=== PATIENT | male | born 1940 | race Caucasian/White ===

== ENCOUNTER 2017-08-29 15:33 | Emergency (ER) | payer MEDICARE, BC, SELFPAY ==
[2017-08-29 15:33] VITALS: BP 122/63; PULSE 87; RESP 18; O2SAT 95; BMI 27.2
--- NOTE | 2017-08-29 17:21 | XR_ITS ---
XR pelvis 1-2V Ordering Physician: Nannette Verdugo MD Patient Age: 77 years: Male HISTORY: ITS.REASON: FALL TECHNIQUE: AP portable supine pelvis radiograph single view COMPARISON :None FINDINGS Osseous pelvis appears intact with no fracture. Bone well mineralized. AP view hips reveals no fracture. Perhaps trace narrowing superior hip joint spaces which may reflect early degenerative changes here. Unimpressive.. Sacrum and SI joints unremarkable. Degenerative disc space narrowing to the right L4/5 with marginal osteophytes to the right L4/5. To lesser degree L5/S1.. Mild dystrophic calcification along the lateral margin of right iliac bone not of current significance.. IMPRESSION: No fracture or acute findings at the pelvis. Osseous pelvis intact. Trace narrowing superior joint bases may reflect very early degenerative changes hips bilateral. Degenerative disc changes lower lumbar spine, most notable to the right at L4/5 on this AP view
--- NOTE | 2017-08-29 18:37 | HMH.EDBACK ---
ED Disposition Clinical Impression: Contusion of pelvis Disposition: Home, Self-Care Condition on Discharge: Good Instructions: DI for Low Back Pain Additional Instructions: Tylenol as needed for pain; see family doctor for follow up as needed. Referrals: Cedric Mcgovern MD [Primary Care Provider] - - Critical Care Critical Care Time: No Attestation: On 08/29/17, the high probability of a clinically significant, sudden or life threatening deterioration of the following system(s) required my full and direct attention, intervention and personal management. The time I documented below is in addition to time spent performing reported procedures but includes the following listed in this critical care notation. Medical Decision Making Vital Signs: 08/29/17 15:33 Temperature Source Oral Pulse Rate [Apical] 87 Respiratory Rate 18 Blood Pressure [Right Arm] 122/63 Blood Pressure Mean [Right Arm] 82 Blood Pressure Source [Right Arm] Automatic Cuff Blood Pressure Position [Right Arm] Sitting 02 Sat by Pulse Oximetry 95 Oxygen Delivery Method Room Air - Radiology Data #1 Image(s): Pelvis Image Reviewed: Yes I reviewed the patient's radiology results, Yes I have reviewed radiologist's interpretation Preliminary Findings: Normal/NAD, No Fracture Seen - [place] Inquiry Pt receiving controlled substance: No H History - *Social History Alcohol Intake: never - Psychiatric History Expresses thoughts of harming self/others: None Suicide Plan Description: No Plan ROS Obtained: Yes All systems reviewed & no additional complaints Physical Exam - General General appearance: alert, in no apparent distress - Head Head exam: atraumatic, normocephalic, normal inspection - Eye Eye exam: Present: normal appearance, PERRL, EOMI - ENT ENT exam: Present: normal exam, normal oropharynx, mucous membranes moist, TM's normal bilaterally, normal external ear exam - Neck Neck exam: Present: normal inspection, full ROM, trachea midline. Absent: meningismus, lymphadenopathy - Chest Chest inspection: Present: normal inspection, symmetric chest wall rise. Absent: tenderness - Respiratory Respiratory exam: Present: normal lung sounds bilaterally, other (Negative for crepitus deformities or step-offs. Negative for subcutaneous air.). Absent: respiratory distress - Cardiovascular Cardiovascular exam: Present: regular rate, normal rhythm. Absent: JVD - Abdominal Exam Abdominal exam: Present: soft, normal bowel sounds. Absent: distention, tenderness, guarding - Extremities Exam Extremities exam: Present: normal inspection, full ROM, normal capillary refill, other (Left posterior pelvis slightly tender diffusely with no crepitus deformity or step-offs. Able to AP and lateral palpation. Full range of motion of all joints and he is neurovascularly intact.). Absent: tenderness, pedal edema, joint swelling, calf tenderness - Back Exam Back exam: Present: normal inspection, full ROM, other (Posterior pelvis tenderness,, no deformity). Absent: paraspinal tenderness, vertebral tenderness - Neurological Exam Neurological exam: Present: alert, oriented X3, reflexes normal. Absent: motor sensory deficit - Skin Skin exam: Present: warm, dry, intact, normal color Back Pain HPI - General Chief Complaint: Back Pain/Injury Stated Complaint: LOWER BACK PAIN Mode of Arrival: Ambulatory Limitations: No Limitations Description of Symptoms (Recalled from ER Triage Doc. by RN): PT C/O LOWER LEFT BACK PAIN SAID HE FELL GETTING INTO BED. - History of Present Illness HPI Narrative: Patient apparently fell several days ago, per EMS report from [facility]. The personal intermediate had x-rays were done yesterday. Ever, we are unable to find results i or any documentation of these having been done here. He is complaining of left-sided back pain no weakness numbness or tingling. Uses depends. No other complaint
--- NOTE | 2017-08-29 18:40 | ED_ITS ---
ED Disposition Clinical Impression: Contusion of pelvis Disposition: Home, Self-Care Condition on Discharge: Good Instructions: DI for Low Back Pain Additional Instructions: Tylenol as needed for pain; see family doctor for follow up as needed. Referrals: Cedric Mcgovern MD [Primary Care Provider] - - Critical Care Critical Care Time: No Attestation: On 08/29/17, the high probability of a clinically significant, sudden or life threatening deterioration of the following system(s) required my full and direct attention, intervention and personal management. The time I documented below is in addition to time spent performing reported procedures but includes the following listed in this critical care notation. Medical Decision Making Vital Signs: 08/29/17 15:33 Temperature Source Oral Pulse Rate [Apical] 87 Respiratory Rate 18 Blood Pressure [Right Arm] 122/63 Blood Pressure Mean [Right Arm] 82 Blood Pressure Source [Right Arm] Automatic Cuff Blood Pressure Position [Right Arm] Sitting 02 Sat by Pulse Oximetry 95 Oxygen Delivery Method Room Air - Radiology Data #1 Image(s): Pelvis Image Reviewed: Yes I reviewed the patient's radiology results, Yes I have reviewed radiologist's interpretation Preliminary Findings: Normal/NAD, No Fracture Seen - [place] Inquiry Pt receiving controlled substance: No H History - *Social History Alcohol Intake: never - Psychiatric History Expresses thoughts of harming self/others: None Suicide Plan Description: No Plan ROS Obtained: Yes All systems reviewed & no additional complaints Physical Exam - General General appearance: alert, in no apparent distress - Head Head exam: atraumatic, normocephalic, normal inspection - Eye Eye exam: Present: normal appearance, PERRL, EOMI - ENT ENT exam: Present: normal exam, normal oropharynx, mucous membranes moist, TM's normal bilaterally, normal external ear exam - Neck Neck exam: Present: normal inspection, full ROM, trachea midline. Absent: meningismus, lymphadenopathy - Chest Chest inspection: Present: normal inspection, symmetric chest wall rise. Absent : tenderness - Respiratory Respiratory exam: Present: normal lung sounds bilaterally, other (Negative for crepitus deformities or step-offs. Negative for subcutaneous air.). Absent: respiratory distress - Cardiovascular Cardiovascular exam: Present: regular rate, normal rhythm. Absent: JVD - Abdominal Exam Abdominal exam: Present: soft, normal bowel sounds. Absent: distention, tenderness, guarding - Extremities Exam Extremities exam: Present: normal inspection, full ROM, normal capillary refill , other (Left posterior pelvis slightly tender diffusely with no crepitus deformity or step-offs. Able to AP and lateral palpation. Full range of motion of all joints and he is neurovascularly intact.). Absent: tenderness, pedal edema, joint swelling, calf tenderness - Back Exam Back exam: Present: normal inspection, full ROM, other (Posterior pelvis tenderness,, no deformity). Absent: paraspinal tenderness, vertebral tenderness - Neurological Exam Neurological exam: Present: alert, oriented X3, reflexes normal. Absent: motor sensory deficit - Skin Skin exam: Present: warm, dry, intact, normal color Back Pain HPI - General Chief Complaint: Back Pain/Injury Stated Complaint: LOWER BACK PAIN Mode of A
== END 2017-08-29 19:00 | disposition home or self-care (01) ==
PROVIDERS: Emergency Provider Emergency Medicine; Family Provider Emergency Medicine; PCP Emergency Medicine
DX: S30.0XXA Contusion of lower back and pelvis, initial encounter (principal); W06.XXXA Fall from bed, initial encounter; Y92.199 Unspecified place in other specified residential institution as the place of occurrence of the external cause
CPT/HCPCS: 72170; 99283

== ENCOUNTER → 2017-10-11 06:51 | Outpatient (CLI) | payer MEDICARE, BC, SELFPAY ==
--- NOTE | 2017-10-11 06:53 | NM_ITS ---
History and Indications: Coronary artery disease status post bypass surgery shortness of breath Procedure: Patient received a 0.4 mg of Lexiscan, resting heart rate was 94 beats per resting blood pressure 122/61, with Lexiscan maximum heart achieved was 108 bpm which is less than 85% of the maximum predicted heart rate and a blood pressure 139/75. With Lexiscan patient complained of mild chest, discomfort. Electrocardiogram: Resting electrocardiogram shows electronically paced rhythm, with Lexiscan less than 1.[address] segment depression noted from the baseline EKG, underlying rhythm was atrial flutter. The EKG portion of the Lexiscan Myoview is nondiagnostic. Cardiac stress and resting SPECT images: Cardiac stress and the rest images were obtained using technetium 99 Myoview and 10.2 mCi at rest and 32.9 mCi at stress, gated SPECT further analysis of segmental wall motion and calculation of the ejection fraction also done. Cardiac stress and rest SPECT images show a mild fixed defect in the inferior wall with normal contractility in the gated SPECT is likely secondary to soft tissue attenuation from the diaphragm, no reversible ischemia seen. Computer derived ejection fraction is 52% with no obvious regional wall motion abnormality, right ventricle is normal size and contractility. Conclusion: 1. The EKG portion of the Lexiscan Myoview is nondiagnostic. 2. No obvious scintigraphic evidence of reversible ischemia seen, either derived ejection fraction is 52% with no obvious regional wall motion abnormality, right ventricle is normal size and contractility.
--- NOTE | 2017-10-11 06:53 | XR_ITS ---
XR chest 2V HISTORY: Shortness of breath ITS.REASON: pacemaker ORDERING PHYSICIAN: Kayden Mancera MD PATIENT AGE: 77 years COMPARISON: 03/02/2017 FINDINGS: There has been a prior CABG with median sternotomy and bipolar pacemaker present. The lungs are clear bilaterally. No evidence of CHF. There are multiple old right-sided rib fractures. Degenerative changes present in the thoracic spine. IMPRESSION: Prior CABG. Cardiac pacemaker present. No change with no acute finding.
--- NOTE | 2017-10-11 06:53 | CA_ITS ---
PROCEDURE: 2-D M-mode and color Doppler study INDICATIONS FOR THE TEST: Chest pain COPD Heart Murmur Tobacco Smoking Palpitations Fatigue Syncope Edema HypertensionXDiabetes Mellitus Rheumatic Fever SOB FARRELL Obesity HyperlipidemiaX Family History HD Additional History CAD,CABG PATIENT INFORMATION HEIGHT: 70 WEIGHT:200 GENDER: Male B/P:110/70 2-D/M-MODE INTERPRETATION: 2-D MEASUREMENTS OBSERVED VALUES IN CMS Right Ventricular Dimension (RVDd) 1.6 Interventricular Septum (Thickness)(IVsd) .9 Left Ventricular Internal Dimensions(LVIDd) 6.0 Left Ventricular Posterior Wall (Thickness)(LVPWd) 1.3 Aortic Root 4.0 Aortic Cusp Separation 2.1 Left Atrial Dimensions (LAD) 3.0 2D 1. Left atrium is qualitatively mildly enlarged, left ventricle is normal size, there is mild concentric left ventricular hypertrophy, visually estimated ejection fraction approximately 45%, there appears to be moderate hypokinesis involving the mid to distal septum and anteroapical wall. 2. The right atrium and right ventricle are normal size and contractility. 3. The aortic valve is minimally thickened and fibrosed. 4. The mitral valve has mild mitral calcification, leaflets are minimally thickened. 5. The tricuspid valve is structurally normal. 6. The pulmonic valve is poorly visualized. 7. No significant pericardial effusion noted. DOPPLER INTERROGATION: Doppler interrogation of the aortic, mitral and tricuspid valvular presence of mild mitral and tricuspid regurgitation, tricuspid and jet velocity insufficient for calculation of the right ventricular systolic pressure, diastolic parameters are inconclusive. CONCLUSION: 1. Mildly enlarged left atrium, normal left ventricular size, mild concentric left ventricular hypertrophy, visually estimated ejection fraction of 45% with segmental wall motion abnormality described above, diastolic parameters are inconclusive. 2. Mild mitral and tricuspid regurgitation 3. No significant pericardial effusion noted.
--- NOTE | 2017-10-11 10:48 | HMH.ITSHM ---
ondansetron atorvastatin doneprezil ranitidine zoloft flomax iltram tegretol
== END ==
PROVIDERS: Family Provider Emergency Medicine; PCP Emergency Medicine; Visit Provider Internal Medicine
DX: I25.10 Atherosclerotic heart disease of native coronary artery without angina pectoris; I25.810 Atherosclerosis of coronary artery bypass graft(s) without angina pectoris; E78.5 Hyperlipidemia, unspecified; I11.9 Hypertensive heart disease without heart failure; Z95.0 Presence of cardiac pacemaker
CPT/HCPCS: 71046; 78452; 93017; 93306; A9502; J2785

== ENCOUNTER → 2017-10-30 10:50 | Outpatient (CLI) | payer MEDICARE, BC, SELFPAY ==
[2017-10-30 13:49] LABS: PHA INR Fingerstick 1.4 (0.9-1.1)
== END ==
PROVIDERS: PCP Emergency Medicine; Visit Provider Internal Medicine
DX: Z79.01 Long term (current) use of anticoagulants (principal); Z51.81 Encounter for therapeutic drug level monitoring; I48.92 Unspecified atrial flutter
CPT/HCPCS: 85610; 99211; G0463

== ENCOUNTER 2017-11-12 08:34 | Outpatient (CLI) | payer MEDICARE, BC, SELFPAY ==
[2017-11-12 09:55] LABS: PHA INR Fingerstick 2.1 (0.9-1.1)
== END 2017-11-12 10:02 | disposition home or self-care (01) ==
PROVIDERS: Family Provider Emergency Medicine; PCP Emergency Medicine; Visit Provider Internal Medicine
DX: Z79.01 Long term (current) use of anticoagulants (principal); Z51.81 Encounter for therapeutic drug level monitoring; I48.92 Unspecified atrial flutter
CPT/HCPCS: 85610; 99211; G0463

== ENCOUNTER → 2017-11-12 11:10 | Outpatient (CLI) | payer MEDICARE, BC, SELFPAY ==
--- NOTE | 2017-11-12 10:23 | CT_ITS ---
CT head/brain wo con HISTORY: Dementia, pain, facial pain ITS.REASON: facial pain ORDERING PHYSICIAN: Trudi Garcia MD PATIENT AGE: 77 years COMPARISON: 02/19/2017 TECHNIQUE: Axial images obtained without contrast. Brain and bone windows reviewed. All CT scans at the facility use one or more dose reduction, viz: automated exposure control; ma/kV adjustment per patient size (including targeted exams where dose is matched to indication; i.e. head); or iterative reconstruction technique. FINDINGS: There is diffuse generalized atrophy with low density changes in the periventricular region consistent with ischemic gliotic change from microvascular disease. Small acute infarction in the left thalamus. Old small lacunar infarction involves the festus slightly towards the left. No midline shift or mass effect. No acute intracranial hemorrhage. There is mild ventriculomegaly but is likely related to the volume loss from the diffuse atrophy. No sinus air-fluid level or mastoid effusion. IMPRESSION: 1. No acute intracranial findings. 2. 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
[2017-11-12 12:14] LABS: Basophils % 0.5 % (0.1-2.0); Eosinophils # 0.2 K/mm3 (0.0-0.4); Eosinophils % 3.4 % (0.1-12.0); Hematocrit 44.1 % (42.0-52.0); Hemoglobin 14.8 g/dL (14.1-18.0); Lymphocytes # 0.9 K/mm3 (0.7-4.5); Lymphocytes % 18.2 K/mm3 (10-50); Mean Corpuscular HGB Conc 33.4 g/dL (31.8-35.4); Mean Corpuscular Hemoglobin 31.7 pg (27.0-31.2); Mean Corpuscular Volume 94.7 fl (80-94); Mean Platelet Volume 7.5 fl (7.4-10.4); Monocytes # 0.4 K/mm3 (0.1-1.0); Monocytes % 6.9 % (1.7-9.3); Neutrophils # 3.7 K/mm3 (1.8-7.8); Platelet Count 144 K/mm3 (142-424); Red Blood Count 4.66 M/mm3 (4.60-6.20); Red Cell Distribution Width 12.9 % (11.5-17.5); White Blood Count 5.2 K/mm3 (4.8-10.8)
[2017-11-12 12:15] LABS: Alanine Aminotransferase 22 U/L (12-78); Albumin Level 3.8 gm/dL (3.4-5.0); Albumin/Globulin Ratio 1.4 (1.1-1.8); Alkaline Phosphatase 132 U/L (46-116); Anion Gap 10.4 mEq/L (5-15); Aspartate Amino Transferase 16 U/L (15-37); Bilirubin,Total 0.3 mg/dL (0.2-1.0); Blood Urea Nitrogen 16 mg/dL (7-18); Calcium 8.6 mg/dL (8.5-10.1); Carbon Dioxide 30 mmol/L (21.0-32.0); Chloride 105 mmol/L (98-107); Creatinine,Serum 0.95 mg/dL (0.70-1.30); Estimated Glomerular Filt Rate 77 ml/min (>60); GFR (African American) 93 ML/MIN (>60); Globulin 2.8 gm/dl (1.3-3.2); Glucose 78 mg/dL (74-106); Potassium 4.4 mmoL/L (3.5-5.1); Sodium 141 mmol/L (136-145); Thyroid Stimulating Hormone 1.78 uIU/ml (0.358-3.740); Total Protein,Serum 6.6 gm/dL (6.4-8.2)
[2017-11-13 14:00] LABS: Folate >20.0 ng/mL (>3.0); Vitamin B12 529 pg/mL (232-1245)
== END ==
PROVIDERS: Family Provider Emergency Medicine; PCP Emergency Medicine; Visit Provider Specialist
DX: R51 Headache (principal); F03.90 Unspecified dementia, unspecified severity, without behavioral disturbance, psychotic disturbance, mood disturbance, and anxiety; Z79.01 Long term (current) use of anticoagulants; Z51.81 Encounter for therapeutic drug level monitoring
CPT/HCPCS: 36415; 70450; 80053; 82607; 82746; 84443; 85025; 85610; 99211; G0463

== ENCOUNTER 2017-11-19 09:21 | Outpatient (CLI) | payer MEDICARE, BC, SELFPAY ==
[2017-11-19 10:36] LABS: PHA INR Fingerstick 2.6 (0.9-1.1)
== END 2017-11-19 14:40 | disposition home or self-care (01) ==
PROVIDERS: PCP Emergency Medicine; Visit Provider Internal Medicine
DX: Z79.01 Long term (current) use of anticoagulants (principal); Z51.81 Encounter for therapeutic drug level monitoring; I48.92 Unspecified atrial flutter
CPT/HCPCS: 85610; 99211; G0463

== ENCOUNTER 2017-12-03 09:06 | Outpatient (CLI) | payer MEDICARE, BC, SELFPAY ==
[2017-12-03 13:10] LABS: PHA INR Fingerstick 2.1 (0.9-1.1)
== END 2017-12-03 13:12 | disposition home or self-care (01) ==
LOC: ACC 09:07
PROVIDERS: PCP Emergency Medicine; Visit Provider Internal Medicine
DX: Z79.01 Long term (current) use of anticoagulants (principal); Z51.81 Encounter for therapeutic drug level monitoring; I48.92 Unspecified atrial flutter
CPT/HCPCS: 85610; 99211; G0463

== ENCOUNTER 2017-12-31 09:39 | Outpatient (CLI) | payer MEDICARE, BC, SELFPAY ==
[2017-12-31 13:10] LABS: PHA INR Fingerstick 1.8 (0.9-1.1)
== END 2017-12-31 14:49 | disposition home or self-care (01) ==
LOC: ACC 09:40
PROVIDERS: PCP Emergency Medicine; Visit Provider Internal Medicine
DX: Z79.01 Long term (current) use of anticoagulants (principal); Z51.81 Encounter for therapeutic drug level monitoring; I48.92 Unspecified atrial flutter
CPT/HCPCS: 85610; 99211; G0463

== ENCOUNTER 2018-01-21 09:26 | Outpatient (CLI) | payer MEDICARE, BC, SELFPAY ==
[2018-01-21 11:50] LABS: PHA INR Fingerstick 2.2 (0.9-1.1)
== END 2018-01-21 12:15 | disposition home or self-care (01) ==
LOC: ACC 09:27
PROVIDERS: Family Provider Emergency Medicine; PCP Emergency Medicine; Visit Provider Internal Medicine
DX: Z79.01 Long term (current) use of anticoagulants (principal); Z51.81 Encounter for therapeutic drug level monitoring; I48.92 Unspecified atrial flutter
CPT/HCPCS: 85610; 99211; G0463

== ENCOUNTER 2018-02-25 09:57 | Outpatient (CLI) | payer MEDICARE, BC, SELFPAY ==
[2018-02-25 15:05] LABS: PHA INR Fingerstick 2.8 (0.9-1.1)
== END 2018-02-25 15:47 | disposition home or self-care (01) ==
LOC: ACC 09:58
PROVIDERS: PCP Emergency Medicine; Visit Provider Internal Medicine
DX: Z79.01 Long term (current) use of anticoagulants (principal); Z51.81 Encounter for therapeutic drug level monitoring; I48.92 Unspecified atrial flutter
CPT/HCPCS: 85610; 99211; G0463

== ENCOUNTER → 2018-04-29 13:25 | Outpatient (REF) | payer MEDICARE, BC, SELFPAY ==
[2018-04-29 13:35] LABS: Microscopic, Urine URINE MICROSCOPIC (MICROSCOPIC)
[2018-04-29 13:55] LABS: Appearance,Urine CLEAR (Clear); Bilirubin,Urine Negative (Negative); Blood, Urine Negative (Negative); Color,Urine YELLOW (Yellow); Glucose,Urine (UA) Negative (Negative); Ketones,Urine Negative (Negative); Leukocyte Esterase,Urine Negative (Negative); Nitrate,Urine Negative (Negative); PH,Urine 6.5 (5.0-8.5); Protein,Urine Negative (Negative); Urobilinogen,Urine 0.2 EU/dl (0.2)
[2018-04-29 14:22] LABS: Basophils % 0.5 % (0.1-2.0); Eosinophils # 0.2 K/mm3 (0.0-0.4); Eosinophils % 2.6 % (0.1-12.0); Hematocrit 43.7 % (42.0-52.0); Hemoglobin 14.4 g/dL (14.1-18.0); Lymphocytes # 1.1 K/mm3 (0.7-4.5); Lymphocytes % 12.6 K/mm3 (10-50); Mean Corpuscular Hemoglobin 30.9 pg (27.0-31.2); Mean Corpuscular Volume 93.5 fl (80-94); Monocytes # 0.7 K/mm3 (0.1-1.0); Monocytes % 7.9 % (1.7-9.3); Neutrophils # 6.4 K/mm3 (1.8-7.8); Neutrophils % 76.3 % (37.0-80.0); Platelet Count 205 K/mm3 (142-424); Red Blood Count 4.68 M/mm3 (4.60-6.20); Red Cell Distribution Width 13.1 % (11.5-17.5); White Blood Count 8.4 K/mm3 (4.8-10.8)
[2018-04-29 14:33] LABS: INR 3.44 (0.9-1.1); Prothrombin Time 34.2 seconds (9.4-11.8)
[2018-04-29 14:40] LABS: Bacteria,Urine 1+ /lpf; Mucus,Urine 2+ /lpf; RBC,Urine Occasional #/hpf (0-3); WBC,Urine Occasional #/hpf (0-3)
[2018-04-29 15:48] LABS: Alanine Aminotransferase 39 U/L (12-78); Albumin Level 3.9 gm/dL (3.4-5.0); Albumin/Globulin Ratio 1.4 (1.1-1.8); Alkaline Phosphatase 158 U/L (46-116); Anion Gap 12.2 mEq/L (5-15); Aspartate Amino Transferase 29 U/L (15-37); Bilirubin,Total 0.5 mg/dL (0.2-1.0); Blood Urea Nitrogen 20 mg/dL (7-18); Calcium 8.8 mg/dL (8.5-10.1); Carbon Dioxide 30 mmol/L (21.0-32.0); Chloride 103 mmol/L (98-107); Creatinine,Serum 1.05 mg/dL (0.70-1.30); Estimated Glomerular Filt Rate 68 ml/min (>60); GFR (African American) 83 ML/MIN (>60); Globulin 2.7 gm/dl (1.3-3.2); Glucose 78 mg/dL (74-106); Potassium 4.2 mmoL/L (3.5-5.1); Sodium 141 mmol/L (136-145); Total Protein,Serum 6.6 gm/dL (6.4-8.2)
== END ==
LOC: LAB 13:25
PROVIDERS: Visit Provider Emergency Medicine
DX: Z79.01 Long term (current) use of anticoagulants (principal); Z51.81 Encounter for therapeutic drug level monitoring; I48.92 Unspecified atrial flutter; R23.1 Pallor; R53.1 Weakness
CPT/HCPCS: 80053; 81001; 85025; 85610

== ENCOUNTER → 2018-04-30 07:22 | Outpatient (REF) | payer MEDICARE, BC, SELFPAY ==
[2018-04-30 07:47] LABS: INR 3.43 (0.9-1.1); Prothrombin Time 34.1 seconds (9.4-11.8)
== END ==
LOC: LAB 07:22
PROVIDERS: Visit Provider Emergency Medicine
DX: Z51.81 Encounter for therapeutic drug level monitoring (principal); Z79.01 Long term (current) use of anticoagulants; I48.92 Unspecified atrial flutter
CPT/HCPCS: 85610

== ENCOUNTER 2018-05-22 21:08 | Observation (INO) ==
[2018-05-22 21:36] LABS: Basophils % 0.3 % (0.1-2.0); Eosinophils # 0.3 K/mm3 (0.0-0.4); Eosinophils % 2.7 % (0.1-12.0); Hematocrit 41.5 % (42.0-52.0); Hemoglobin 13.8 g/dL (14.1-18.0); Lymphocytes # 0.7 K/mm3 (0.7-4.5); Mean Corpuscular HGB Conc 33.2 g/dL (31.8-35.4); Mean Corpuscular Volume 90.3 fl (80-94); Mean Platelet Volume 6.8 fl (7.4-10.4); Monocytes # 0.6 K/mm3 (0.1-1.0); Monocytes % 6.6 % (1.7-9.3); Neutrophils % 83.3 % (37.0-80.0); Platelet Count 186 K/mm3 (142-424); Red Cell Distribution Width 13.3 % (11.5-17.5); White Blood Count 9.6 K/mm3 (4.8-10.8)
[2018-05-22 21:43] LABS: INR 3.98 (0.9-1.1); Prothrombin Time 39.4 seconds (9.4-11.8)
[2018-05-22 22:03] LABS: Anion Gap 10.8 mEq/L (5-15); Calcium 9.3 mg/dL (8.5-10.1); Potassium 3.8 mmoL/L (3.5-5.1)
--- NOTE | 2018-05-23 01:59 | Emergency Department Note ---
ED Disposition Clinical Impression: Elevated troponin, Cardiac pacemaker in situ Dementia Qualifiers: Dementia type: unspecified type Dementia behavioral disturbance: with behavioral disturbance Qualified Code(s): F03.91 - Unspecified dementia with behavioral disturbance Fall Qualifiers: Encounter type: initial encounter Qualified Code(s): W19.XXXA - Unspecified f all, initial encounter Disposition: Admitted as Observation Condition on Discharge: Good Referrals: Cedric Mcgovern MD [Primary Care Provider] - - Critical Care Critical Care Time: No Attestation: On 05/22/18, the high probability of a clinically significant, sudden or life threatening deterioration of the following system(s) required my full and direct attention, intervention and personal management. The time I documented below is in addition to time spent performing reported procedures but includes the following listed in this critical care notation. Medical Decision Making - Medical Records Medical records reviewed: Yes: I reviewed the patient's medical records. - [place] Inquiry Pt receiving controlled substance: No Vital Signs: 05/22/18 21:08 05/22/18 22:46 05/23/18 00:30 Temperature 97.9 F Temperature Source Oral Pulse Rate [Right Brachial] 93 H 96 H 89 Respiratory Rate 15 18 16 Blood Pressure [Right Arm] 123/77 130/82 113/78 Blood Pressure Mean [Right Arm] 92 98 89 Blood Pressure Source [Right Arm] Automatic Cuff Blood Pressure Position [Right Arm] Supine 02 Sat by Pulse Oximetry 97 95 93 L Oxygen Delivery Method Room Air Room Air Room Air - Lab Data Lab results reviewed: Yes: I reviewed the patient's lab results. Lab Results 05/22/18 21:25: WBC 9.6, RBC 4.60, Hgb 13.8 L, Hct 41.5 L, MCV 90.3, MCH 30.0, MCHC 33.2, RDW 13.3, Plt Count 186, MPV 6.8 L, Neut % (Auto) 83.3 H, Lymph % (Auto) 7.0 L, [place] % (Auto) 6.6, Eos % (Auto) 2.7, Baso % (Auto) 0.3, Neut # (Auto) 8.0 H, Lymph # (Auto) 0.7, [place] # (Auto) 0.6, Eos # (Auto) 0.3, Baso # (Auto) 0.0 05/22/18 21:25: Sodium 137, Potassium 3.8, Chloride 100, Carbon Dioxide 30, Anion Gap 10.8, BUN 19 H, Creatinine 1.09, Estimated Creat Clear 84, Estimated GFR 66, Est GFR ( Amer) 79, Glucose 111 H, Calcium 9.3, Troponin I 0.82 H 05/22/18 21:25: PT 39.4 H, INR 3.98 H 05/23/18 00:25: Troponin I 0.53 H Result diagrams: 05/22/18 21:25 05/22/18 21:25 Orders (Tests/Meds): ORDERS Category Date Time Status CT cervical spine wo con Stat Cat Scan 05/22/18 21:[address] head/brain wo con Stat Cat Scan 05/22/18 21:13 Taken XR chest AP Stat Exams 05/22/18 21:13 Taken XR hip LT 2-3V w/pelvis Routine Exams 05/22/18 21:24 Taken XR hip RT 2-3V w/pelvis Routine Exams 05/22/18 21:24 Taken - Radiology Data #1 Image(s): Chest, Pelvis, Hip Image Reviewed: Yes I reviewed the patient's radiology image Preliminary Findings: No Fracture Seen (possible rt infra rami ) - CT Data CT Scan: Head, C-Spine Time Received: 02:[address] Reviewed: Yes: I have viewed the radiologist's interpretation Preliminary Findings: No Fracture Seen - ECG Data Tracing #1 I reviewed this ECG and interpreted as documented below: Arrhythmias present: wandering atrial pacemaker Ischemic changes: non-specific ST-T wave changes Fall HPI - General Chief Complaint: Fall Stated Complaint: fall Time Seen by Provider: 05/22/18 21:30 Mode of Arrival: EMS Source of Information: Patient, EMS, Medical Record Limitations: No Limitations Description of Symptoms (Recalled from ER Triage Doc. by RN): Unwitnessed fall reported from senior care. Pt was reportedly in the bathroom, and fell. C/o head, neck, and back pain. No LOC. - History of Present Illness HPI Narrative: reported fall at [facility] with pt unable to give specific hx - pt with hx of pacemaker and denied any pain at this time - he has hx of a fib and on coumadin - MD complaint: fall Onset (ago): hour(s) Fall from: standing Fall witnessed: no Place fall occurred: senior care/SNF Loss of consciousness: none Prolonged down time: no Context: history of frequent falls Location of injury: head, neck Severity: moderate Associated symptoms (after fall): denies - Related Data Home Medications Medication Instructions Recorded Confirmed cholecalciferol (vitamin D3) 50,000 unit PO WEEKLY 09/25/17 05/22/18 50,000 unit capsule donepezil 5 mg tablet 5 mg PO QHS 09/25/17 05/22/18 ranitidine 150 mg tablet 150 mg PO QHS 09/25/17 05/22/18 sertraline 50 mg tablet 50 mg PO DAILY 09/25/17 05/22/18 tramadol 50 mg tablet 50 mg PO TID tab 09/25/17 05/22/18 atorvastatin 20 mg tablet 20 mg PO HS tab 11/27/17 05/22/18 acetaminophen 500 mg tablet 500 mg PO Q4HP PRN 02/14/18 05/22/18 tamsulosin 0.4 mg capsule 0.4 mg PO HS 02/14/18 05/22/18 warfarin 5 mg tablet 3 mg PO DAILY 02/14/18 05/22/18 Ondansetron [Zofran 4mg ODT] 4 mg PO Q6H PRN 03/14/18 05/22/18 Trazodone HCl 25 mg PO HS 03/14/18 05/22/18 Tolterodine Tartrate [Detrol LA] 4 mg PO DAILY 05/22/18 05/22/18 risperiDONE [Risperidone] 0.5 mg PO BID 05/22/18 05/22/18 Allergies Allergy/AdvReac Type Severity Reaction Status Date / Time No Known Allergies Allergy Verified 04/18/18 09:[address] [facility] History I have reviewed the patient's past medical history: Yes Medical History: Reports:: Chronic Obstructive Pulmonary Disease (COPD), Dementia, Hypertension, Internal Pacemaker Denies:: Diabetes Mellitus Type 1, Diabetes Mellitus Type 2 Other Surgeries: Yes: CABG, Pacemaker Comment: Eye surgery, Quad heart bypass - Social History Smoking Status: Former smoker Alcohol Intake: never Alcohol Intake Frequency:: other Substance Use Type: denies use Housing: assisted living facility - Psychiatric History Expresses thoughts of harming self/others: None Suicide Plan Description: No Plan Family Hx:: Unable to obtain ROS Obtained: Yes All systems reviewed & no additional complaints - Constitutional Constitutional: Denies fever(s) - Eyes Eyes: Denies change in vision - ENT Ears, Nose, Mouth, and Throat: Denies sore throat - Cardiovascular Cardiovascular: Denies chest pain, Reports lightheadedness - Respiratory Respiratory: No cough - Gastrointestinal Gastrointestingal: Denies: abdominal pain, nausea, vomiting - Genitourinary Male Genitourinary: Denies hematuria - Musculoskeletal Musculoskeletal: Denies joint pain, Denies back pain, Denies limited range of motion, Reports neck pain - Integumentary/Breasts Skin/Breast: Denies rash - Neurologic Neurologic: Denies focal weakness, Reports frequent falls, Denies headache(s), Denies seizure-like activity Physical Exam - General General appearance: in no apparent distress - Head Head exam: normocephalic - Eye Eye exam: Present: PERRL, EOMI. Absent: scleral icterus - ENT ENT exam: Present: mucous membranes dry - Neck Neck exam: Present: trachea midline. Absent: full ROM - Respiratory Respiratory exam: Present: other (dec bs bilat ). Absent: respiratory distress - Cardiovascular Cardiovascular exam: Present: regular rate, systolic murmur, +S4 - Abdominal Exam Abdominal exam: Present: soft - Extremities Exam Extremities exam: Absent: calf tenderness - Back Exam Back exam: Absent: paraspinal tenderness - Neurological Exam Neurological exam: Present: alert, CN II-XII intact. Absent: oriented X3, reflexes normal - Psychiatric Psychiatric exam: Present: other (has dementia) - Skin Skin exam: Absent: rash
[2018-05-23 06:38] LABS: Basophils % 0.4 % (0.1-2.0); Eosinophils # 0.3 K/mm3 (0.0-0.4); Eosinophils % 4.2 % (0.1-12.0); Hematocrit 38.8 % (42.0-52.0); Hemoglobin 12.9 g/dL (14.1-18.0); Lymphocytes % 13.8 K/mm3 (10-50); Mean Corpuscular HGB Conc 33.2 g/dL (31.8-35.4); Mean Corpuscular Hemoglobin 30.3 pg (27.0-31.2); Mean Corpuscular Volume 91.3 fl (80-94); Mean Platelet Volume 6.9 fl (7.4-10.4); Monocytes # 0.6 K/mm3 (0.1-1.0); Monocytes % 8.4 % (1.7-9.3); Neutrophils # 5.2 K/mm3 (1.8-7.8); Neutrophils % 73.2 % (37.0-80.0); Platelet Count 161 K/mm3 (142-424); Red Blood Count 4.25 M/mm3 (4.60-6.20); Red Cell Distribution Width 13.3 % (11.5-17.5); White Blood Count 7.1 K/mm3 (4.8-10.8)
[2018-05-23 06:46] LABS: Prothrombin Time 43.8 seconds (9.4-11.8)
[2018-05-23 06:48] LABS: Anion Gap 10.3 mEq/L (5-15); Calcium 8.9 mg/dL (8.5-10.1); Chol/HDL Ratio 1.9 (1-3.5); Potassium 3.3 mmoL/L (3.5-5.1)
[2018-05-23 06:49] LABS: INR 4.44 (0.9-1.1)
--- NOTE | 2018-05-23 07:50 | Pharmacy Consult Notes ---
[facility] Pharmacy VTE Monitoring - Patient Demographics Admission date: 05/23/18 Report Date: 05/23/18 Time: 07:49 Allergies/Adverse Reactions: Patient Allergies No Known Allergies Allergy (Verified 04/18/18 09:28) Height: 1.78 m Weight: 94.035 kg Patient Problems: Current Active Problems Fall (Acute) Elevated troponin (Acute) Dementia (Chronic) Cardiac pacemaker in situ (Chronic) - VTE Risk Labs: VTE Related Lab Results Hgb 12.9 g/dL (14.1-18.0) L 05/23/18 05:55 Hct 38.8 % (42.0-52.0) L 05/23/18 05:55 Plt Count 161 K/mm3 (142-424) 05/23/18 05:55 PT 43.8 seconds (9.4-11.8) H 05/23/18 05:55 INR 4.44 (0.9-1.1) H 05/23/18 05:55 BUN 17 mg/dL (7-18) 05/23/18 05:55 Creatinine 1.03 mg/dL (0.70-1.30) 05/23/18 05:55 Estimated Creat Clear 80 mL/min (0-300) 05/23/18 05:55 VTE Score: 6 VTE Risk Level: Moderate Risk - Prophylaxis VTE Prophylaxis Ordered?: Yes Types of VTE Prophylaxis: TEDS Knee High Location of Applied Device: Bilateral Lower Extremeties - VTE Diagnosis Confirmed Treatment or plan recommended: Continue Current Treatment
--- NOTE | 2018-05-23 08:33 | Consult Report ---
History of Present Illness Consult date: 05/23/18 Requesting physician: Cedric Mcgovern Chief complaint: History of fall, elevated troponin Additional Medical History:: 1. CAD A. History of CABG B. Stefano myoview, 09/2017, no ischemia C. Echo, 09/2017, LVEF 45% with septal and anteroseptal wall motion abnormalities. Mild Left atrial enlargement, mild concentric LVH, mild MR/TR. 2. Medtronic pacemaker implanted 05/2013 3. Dementia A. resident of [facility] 4. COPD 5. HTN History of present illness: 78-year-old white male with history of coronary artery bypass grafting and permanent pacemaker in situ who has dementia and is a resident of a local group home was admitted after reported history of fall. Workup in the ER included troponins which returned elevated but are trending down. Patient relates some chest discomfort but is vague on symptoms and aggravating or alleviating factors. He does have some chest wall tenderness with palpation. Cardiology consulted for evaluation recommendation. Patient's pacemaker was interrogated today there is no history of rapid heart rates greater than 175 bpm. Patient does have a history of atrial flutter and could have had some elevated rates greater than 100 bpm that are just not recorded. Patient does take Coumadin for history of atrial fib/flutter. Current INR is 4.4. [facility] History Medical History: Reports:: Chronic Obstructive Pulmonary Disease (COPD), Dementia, Hypertension, Internal Pacemaker Denies:: Diabetes Mellitus Type 1, Diabetes Mellitus Type 2 Other Surgeries: Yes: CABG, Pacemaker - *Social History Educational Level: Completed College Smoking Status: Never smoker Alcohol Intake: never Alcohol Intake Frequency:: other Substance Use Type: denies use Occupational Status: retired Housing: assisted living facility - Psychiatric History Expresses thoughts of harming self/others: None Suicide Plan Description: No Plan *Family Hx:: Unable to obtain Meds Home Medications Medication Instructions Recorded Confirmed Type cholecalciferol (vitamin D3) 50,000 unit PO WEEKLY 09/25/17 05/23/18 History 50,000 unit capsule donepezil 5 mg tablet 5 mg PO QHS 09/25/17 05/23/18 History ranitidine 150 mg tablet 150 mg PO QHS 09/25/17 05/23/18 History sertraline 50 mg tablet 50 mg PO DAILY 09/25/17 05/23/18 History tramadol 50 mg tablet 50 mg PO TID tab 09/25/17 05/23/18 History atorvastatin 20 mg tablet 20 mg PO HS tab 11/27/17 05/23/18 History acetaminophen 500 mg tablet 500 mg PO Q4HP PRN 02/14/18 05/23/18 History tamsulosin 0.4 mg capsule 0.4 mg PO HS 02/14/18 05/23/18 History warfarin 5 mg tablet 3 mg PO DAILY 02/14/18 05/23/18 History Ondansetron [Zofran 4mg ODT] 4 mg PO Q6H PRN 03/14/18 05/22/18 History Trazodone HCl 25 mg PO HS 03/14/18 05/23/18 History Tolterodine Tartrate [Detrol LA] 4 mg PO DAILY 05/22/18 05/23/18 History risperiDONE [Risperidone] 0.5 mg PO BID 05/22/18 05/23/18 History Allergies Allergy/AdvReac Type Severity Reaction Status Date / Time No Known Allergies Allergy Verified 04/18/18 09:28 Review of Systems - *Cardiovascular Reports chest pain - *Respiratory Denies shortness of breath - *Neurologic Reports frequent falls, Denies localized weakness, Denies headache(s), Denies seizure-like activity Exam Vital signs and Labs for Last 24 Hours: Temp Pulse Resp BP Pulse Ox 98.2 F 65 18 145/72 H 97 05/23/18 07:41 05/23/18 07:41 05/23/18 07:41 05/23/18 07:41 05/23/18 07:41 Laboratory Results - last 24 hr 05/22/18 21:25: WBC 9.6, RBC 4.60, Hgb 13.8 L, Hct 41.5 L, MCV 90.3, MCH 30.0, MCHC 33.2, RDW 13.3, Plt Count 186, MPV 6.8 L, Neut % (Auto) 83.3 H, Lymph % (Auto) 7.0 L, [place] % (Auto) 6.6, Eos % (Auto) 2.7, Baso % (Auto) 0.3, Neut # (Auto) 8.0 H, Lymph # (Auto) 0.7, [place] # (Auto) 0.6, Eos # (Auto) 0.3, Baso # (Auto) 0.0 05/22/18 21:25: Sodium 137, Potassium 3.8, Chloride 100, Carbon Dioxide 30, Anion Gap 10.8, BUN 19 H, Creatinine 1.09, Estimated Creat Clear 84, Estimated GFR 66, Est GFR ( Amer) 79, Glucose 111 H, Calcium 9.3, Troponin I 0.82 H 05/22/18 21:25: PT 39.4 H, INR 3.98 H 05/23/18 00:25: Troponin I 0.53 H 05/23/18 05:55: Troponin I 0.41 H 05/23/18 05:55: WBC 7.1 D, RBC 4.25 L, Hgb 12.9 L, Hct 38.8 L, MCV 91.3, MCH 30.3, MCHC 33.2, RDW 13.3, Plt Count 161, MPV 6.9 L, Neut % (Auto) 73.2, Lymph % (Auto) 13.8, [place] % (Auto) 8.4, Eos % (Auto) 4.2, Baso % (Auto) 0.4, Neut # (Auto) 5.2, Lymph # (Auto) 1.0, [place] # (Auto) 0.6, Eos # (Auto) 0.3, Baso # (Auto) 0.0 05/23/18 05:55: PT 43.8 H, INR 4.44 H 05/23/18 05:55: Sodium 138, Potassium 3.3 L, Chloride 101, Carbon Dioxide 30, Anion Gap 10.3, BUN 17, Creatinine 1.03, Estimated Creat Clear 80, Estimated GFR 70, Est GFR ( Amer) 85, Glucose 103, Calcium 8.9, Triglycerides 36, Cholesterol 97 L, LDL Cholesterol 40, VLDL Cholesterol 7, HDL Cholesterol 50, Cholesterol/HDL Ratio 1.9 I & O for Last 24 hours: Intake & Output 05/20/18 05/21/18 05/22/18 05/23/18 11:59 11:59 11:59 11:59 Weight 207 lb 5 oz - *Routine Neck Exam Present: supple. Absent: JVD, carotid bruit - *Routine Respiratory Exam Present: decreased breath sounds. Absent: accessory muscle use, rales, rhonchi, wheezes Comments: Poor inspiratory effort. - *Routine Cardiovascular Exam Present: RRR. Absent: murmur, gallop, rubs - *Routine Abdominal Exam Present: soft. Absent: tenderness, distended, guarding - *Routine Extremities Exam Absent: edema, calf tenderness - *Routine Neurological Exam Present: altered mental status, moving all extremities Assessment and Plan (1) Elevated troponin Current visit: Yes Status: Acute Category: Medical Code(s): R74.8 - Abnormal levels of other serum enzymes (2) Fall Current visit: Yes Status: Acute Qualifiers: Encounter type: initial encounter Qualified Code(s): W19.XXXA - Unspecified fall, initial encounter Category: Medical Code(s): W19.XXXA - Unspecified fall, initial encounter (3) Cardiac pacemaker in situ Current visit: Yes Status: Chronic Category: Medical Code(s): Z95.0 - Presence of cardiac pacemaker (4) Dementia Problem details: Mild dementia currently on Aricept 5 mg p.o. at night Current visit: Yes Status: Chronic Qualifiers: Dementia type: unspecified type Dementia behavioral disturbance: with behavioral disturbance Qualified Code(s): F03.91 - Unspecified dementia with behavioral disturbance Category: Medical Code(s): F03.90 - Unspecified dementia without behavioral disturbance (5) CAD (coronary artery disease) Current visit: No Status: Chronic Qualifiers: Coronary Disease-Associated Artery/Lesion type: bypass graft [place] vs. transplanted heart: [place] heart Associated angina: without angina Qualified Code(s): I25.810 - Atherosclerosis of coronary artery bypass graft(s) without angina pectoris Category: Medical Code(s): I25.10 - Atherosclerotic heart disease of [place] coronary artery without angina pectoris (6) HHD (hypertensive heart disease) Current visit: No Status: Chronic Qualifiers: Heart failure presence: without heart failure Qualified Code(s): I11.9 - Hypertensive heart disease without heart failure Category: Medical Code(s): I11.9 - Hypertensive heart disease without heart failure (7) HLD (hyperlipidemia) Current visit: No Status: Chronic Qualifiers: Hyperlipidemia type: other hyperlipidemia Category: Medical Code(s): E78.5 - Hyperlipidemia, unspecified - Assessment and plan all Dx Assessment and Plan for all problems:: 1. Chest pain with elevated troponin. Recent Lexiscan Myoview with no evidence of ischemia but patient with known history of coronary artery bypass grafting many years ago. Patient also with history of atrial fib/flutter for which he is on Coumadin therapy with current INR of greater than 4. Patient likely had elevated heart rate which caused cardiac strain. Pacemaker interrogation shows no heart rate greater than 175 bpm the patient has had episodes of heart rates greater than 100 bpm. Preliminary echocardiogram shows left ventricular ejection fraction approximately 50%, unchanged from echo 8 months ago. In light of the patient's dementia, would prefer medical therapy. We will add low-dose beta-jordin for rate control in setting of CAD and continue Coumadin therapy. 2. Okay to discharge from cardiology standpoint back to group home.
--- NOTE | 2018-05-23 14:07 | Cardiology Report ---
PROCEDURE: 2-D M-mode and color Doppler study INDICATIONS FOR THE TEST: Chest pain + COPD+ Heart Murmur Tobacco Smoking Palpitations Fatigue Syncope Edema Hypertension+Diabetes Mellitus Rheumatic Fever SOB FARRELL Obesity Hyperlipidemia+ Family History HD Additional History CAAD, CABG, PACER, AFIB, PT FLAT ON HIS BACK PATIENT INFORMATION HEIGHT: 71 WEIGHT:230 GENDER: M B/P:113/78 2-D/M-MODE INTERPRETATION: 2-D MEASUREMENTS OBSERVED VALUES IN CMS Right Ventricular Dimension (RVDd) 2.3 Interventricular Septum (Thickness)(IVsd) 1.2 Left Ventricular Internal Dimensions(LVIDd) 4.5 Left Ventricular Posterior Wall (Thickness)(LVPWd) 1.2 Aortic Root 4.1 Aortic Cusp Separation 2.1 Left Atrial Dimensions (LAD) 4.3 2D 1. Left atrium is mildly enlarged, left ventricle is normal size, mild concentric left ventricular hypertrophy, visually estimated ejection fraction 55% with no obvious regional wall motion abnormality. 2. The right atrium and right ventricle are normal size and contractility, there is a pacemaker lead seen in the right atrium and right ventricle. 3. The aortic valve is thickened and calcified leaflet continue to display mobility. 4. The mitral and tricuspid valve leaflets are minimally thickened. 5. The pulmonic valve is poorly visualized. 6. No significant pericardial effusion noted. DOPPLER INTERROGATION: Doppler interrogation of the aortic, mitral and tricuspid valvular presence of mild mitral and tricuspid regurgitation, tricuspid regurgitation jet velocity is insufficient for calculation of the right ventricular systolic pressure, diastolic parameters are inconclusive. CONCLUSION: 1. Mildly enlarged left atrium, normal left ventricular size, mild concentric left ventricular hypertrophy, visually estimated ejection fraction 55% with no regional wall motion abnormality, diastolic parameters are inconclusive. 2. Mild mitral and tricuspid regurgitation 3. No significant pericardial effusion noted.
--- NOTE | 2018-05-30 13:20 | H&P/Discharge Summary ---
General - General Admission date:: 05/23/18 Discharge date: 05/23/18 *Admission Date: 05/23/18 *Chief complaint: fall *History of present illness: this wm who was sent to ed last pm with fall - pt has dementia and unable to give specific hx and fall was unwittnessed - it was felt that he became lightheaded and pt was seen in the ed with neg head ct and c spine was neg and cxr and ap pelvis and hips showed no acute fx but pt was noted to have elevated tropin but no acute ekg changes - he was admitted for serial enz and card eval [facility] History I have reviewed the patient's past medical history: Yes Medical History: Reports:: Chronic Obstructive Pulmonary Disease (COPD), Dementia, Hypertension, Internal Pacemaker Denies:: Diabetes Mellitus Type 1, Diabetes Mellitus Type 2 Other Surgeries: Yes: CABG, Pacemaker - *Social History Educational Level: Completed College Smoking Status: Never smoker Alcohol Intake: never Alcohol Intake Frequency:: other Substance Use Type: denies use Occupational Status: retired Housing: assisted living facility - Psychiatric History Expresses thoughts of harming self/others: None Suicide Plan Description: No Plan *Family Hx:: Unable to obtain Review of Systems - Review of Systems Review of systems:: pertinent systems reviewed and negative unless documented below - Constitutional Denies fever(s) - Eyes Denies change in vision - ENT Denies sore throat - *Cardiovascular Reports lightheadedness, Denies chest pain at rest - *Respiratory Denies cough, Denies shortness of breath - *Gastrointestinal Denies abdominal pain, Denies vomiting - *Genitourinary Denies blood in urine - *Musculoskeletal Reports joint pain, Reports limited joint movement, Reports neck pain - Integumentary/Breasts Denies rash - *Neurologic Reports frequent falls, Denies localized weakness, Denies headache(s), Denies seizure-like activity - Psychiatric Denies anxiety Exam Vital signs and Labs for Last 24 Hours: Temp Pulse Resp BP Pulse Ox 98.2 F 65 18 145/72 H 97 05/23/18 07:41 05/23/18 07:41 05/23/18 07:41 05/23/18 07:41 05/23/18 07:41 Laboratory Results - last 24 hr 05/22/18 21:25: WBC 9.6, RBC 4.60, Hgb 13.8 L, Hct 41.5 L, MCV 90.3, MCH 30.0, MCHC 33.2, RDW 13.3, Plt Count 186, MPV 6.8 L, Neut % (Auto) 83.3 H, Lymph % (Auto) 7.0 L, [place] % (Auto) 6.6, Eos % (Auto) 2.7, Baso % (Auto) 0.3, Neut # (Auto) 8.0 H, Lymph # (Auto) 0.7, [place] # (Auto) 0.6, Eos # (Auto) 0.3, Baso # (Auto) 0.0 05/22/18 21:25: Sodium 137, Potassium 3.8, Chloride 100, Carbon Dioxide 30, Anion Gap 10.8, BUN 19 H, Creatinine 1.09, Estimated Creat Clear 84, Estimated GFR 66, Est GFR ( Amer) 79, Glucose 111 H, Calcium 9.3, Troponin I 0.82 H 05/22/18 21:25: PT 39.4 H, INR 3.98 H 05/23/18 00:25: Troponin I 0.53 H 05/23/18 05:55: Troponin I 0.41 H 05/23/18 05:55: WBC 7.1 D, RBC 4.25 L, Hgb 12.9 L, Hct 38.8 L, MCV 91.3, MCH 30.3, MCHC 33.2, RDW 13.3, Plt Count 161, MPV 6.9 L, Neut % (Auto) 73.2, Lymph % (Auto) 13.8, [place] % (Auto) 8.4, Eos % (Auto) 4.2, Baso % (Auto) 0.4, Neut # (Auto) 5.2, Lymph # (Auto) 1.0, [place] # (Auto) 0.6, Eos # (Auto) 0.3, Baso # (Auto) 0.0 05/23/18 05:55: PT 43.8 H, INR 4.44 H 05/23/18 05:55: Sodium 138, Potassium 3.3 L, Chloride 101, Carbon Dioxide 30, Anion Gap 10.3, BUN 17, Creatinine 1.03, Estimated Creat Clear 80, Estimated GFR 70, Est GFR ( Amer) 85, Glucose 103, Calcium 8.9, Triglycerides 36, Cholesterol 97 L, LDL Cholesterol 40, VLDL Cholesterol 7, HDL Cholesterol 50, Cholesterol/HDL Ratio 1.9 I & O for Last 24 hours: Intake & Output 05/20/18 05/21/18 05/22/18 05/23/18 11:59 11:59 11:59 11:59 Weight 207 lb 5 oz - Constitutional no acute distress, somnolent - *Routine HEENT Exam Head: Present: normocephalic Eye: Present: EOMI, PERRL ENT: Present: mucous membranes dry - *Routine Neck Exam Absent: JVD - *Routine Respiratory Exam Present: decreased breath sounds. Absent: respiratory distress - *Routine Cardiovascular Exam Present: RRR, murmur, S4 - *Routine Abdominal Exam Present: soft. Absent: tenderness - *Routine Extremities Exam Absent: calf tenderness - Routine Back/Spine/Pelvis Exam Back/Spine: Absent: vertebral tenderness - *Routine Skin Exam Present: intact - *Routine Neurological Exam Present: CN II-XII intact, altered mental status (has dementia ) - Routine Psychiatric Exam Present: unable to assess Hospital Course Hospital Course: pt was admitted and stable vs and labs and was seen by card - 1. CAD A. History of CABG B. Stefano myoview, 09/2017, no ischemia C. Echo, 09/2017, LVEF 45% with septal and anteroseptal wall motion abnormalities. Mild Left atrial enlargement, mild concentric LVH, mild MR/TR. 2. Medtronic pacemaker implanted 05/2013 3. Dementia A. resident of [facility] 4. COPD 5. HTN History of present illness: 78-year-old white male with history of coronary artery bypass grafting and permanent pacemaker in situ who has dementia and is a resident of a local correction was admitted after reported history of fall. Workup in the ER included troponins which returned elevated but are trending down. Patient relates some chest discomfort but is vague on symptoms and aggravating or alleviating factors. He does have some chest wall tenderness with palpation. Cardiology consulted for evaluation recommendation. Patient's pacemaker was interrogated today there is no history of rapid heart rates greater than 175 bpm. Patient does have a history of atrial flutter and could have had some elevated rates greater than 100 bpm that are just not recorded. Patient does take Coumadin for history of atrial fib/flutter. Current INR is 4.4. pt has dec tropin and labs were stable est pain with elevated troponin. Recent Lexiscan Myoview with no evidence of ischemia but patient with known history of coronary artery bypass grafting many years ago. Patient also with history of atrial fib/flutter for which he is on Coumadin therapy with current INR of greater than 4. Patient likely had elevated heart rate which caused cardiac strain. Pacemaker interrogation shows no heart rate greater than 175 bpm the patient has had episodes of heart rates greater than 100 bpm. Preliminary echocardiogram shows left ventricular ejection fraction approximately 50%, unchanged from echo 8 months ago. In light of the patient's dementia, would prefer medical therapy. We will add low-dose beta-jordin for rate control in setting of CAD and continue Coumadin therapy. 2. Okay to discharge from cardiology standpoint back to correction. Results Labs on day of discharge: Labs from last 24 hours 05/23/18 05/23/18 05/23/18 05:55 05:55 05:55 WBC 7.1 D RBC 4.25 L Hgb 12.9 L Hct 38.8 L MCV 91.3 MCH 30.3 MCHC 33.2 RDW 13.3 Plt Count 161 MPV 6.9 L Neut % (Auto) 73.2 Lymph % (Auto) 13.8 [place] % (Auto) 8.4 Eos % (Auto) 4.2 Baso % (Auto) 0.4 Neut # (Auto) 5.2 Lymph # (Auto) 1.0 [place] # (Auto) 0.6 Eos # (Auto) 0.3 Baso # (Auto) 0.0 PT 43.8 H INR 4.44 H Sodium 138 Potassium 3.3 L Chloride 101 Carbon Dioxide 30 Anion Gap 10.3 BUN 17 Creatinine 1.03 Estimated Creat Clear 80 Estimated GFR 70 Est GFR ( Amer) 85 Glucose 103 Calcium 8.9 Troponin I Triglycerides 36 Cholesterol 97 L LDL Cholesterol 40 VLDL Cholesterol 7 HDL Cholesterol 50 Cholesterol/HDL Ratio 1.9 05/23/18 05/23/18 05/22/18 05:55 00:25 21:25 WBC RBC Hgb Hct MCV MCH MCHC RDW Plt Count MPV Neut % (Auto) Lymph % (Auto) [place] % (Auto) Eos % (Auto) Baso % (Auto) Neut # (Auto) Lymph # (Auto) [place] # (Auto) Eos # (Auto) Baso # (Auto) PT 39.4 H INR 3.98 H Sodium Potassium Chloride Carbon Dioxide Anion Gap BUN Creatinine Estimated Creat Clear Estimated GFR Est GFR ( Amer) Glucose Calcium Troponin I 0.41 H 0.53 H Triglycerides Cholesterol LDL Cholesterol VLDL Cholesterol HDL Cholesterol Cholesterol/HDL Ratio 05/22/18 05/22/18 21:25 21:25 WBC 9.6 RBC 4.60 Hgb 13.8 L Hct 41.5 L MCV 90.3 MCH 30.0 MCHC 33.2 RDW 13.3 Plt Count 186 MPV 6.8 L Neut % (Auto) 83.3 H Lymph % (Auto) 7.0 L [place] % (Auto) 6.6 Eos % (Auto) 2.7 Baso % (Auto) 0.3 Neut # (Auto) 8.0 H Lymph # (Auto) 0.7 [place] # (Auto) 0.6 Eos # (Auto) 0.3 Baso # (Auto) 0.0 PT INR Sodium 137 Potassium 3.8 Chloride 100 Carbon Dioxide 30 Anion Gap 10.8 BUN 19 H Creatinine 1.09 Estimated Creat Clear 84 Estimated GFR 66 Est GFR ( Amer) 79 Glucose 111 H Calcium 9.3 Troponin I 0.82 H Triglycerides Cholesterol LDL Cholesterol VLDL Cholesterol HDL Cholesterol Cholesterol/HDL Ratio DS: Diagnosis - Discharge Diagnosis (1) Elevated troponin Status: Acute (2) Fall Status: Acute (3) Cardiac pacemaker in situ Status: Chronic (4) Dementia Status: Chronic Problem details: Mild dementia currently on Aricept 5 mg p.o. at night (5) CAD (coronary artery disease) Status: Chronic (6) HHD (hypertensive heart disease) Status: Chronic (7) HLD (hyperlipidemia) Status: Chronic Discharge Medications - Medications for Discharge Home Medication List at Discharge: New Donepezil HCl [Aricept 5mg] 5 mg PO HS tablet Metoprolol Succinate [Toprol XL 25mg tablet] 25 mg PO DAILY #90 tab.er.24h Continue ranitidine 150 mg tablet 150 mg PO HS sertraline 50 mg tablet 50 mg PO DAILY cholecalciferol (vitamin D3) 50,000 unit capsule 50,000 unit PO TU acetaminophen 500 mg tablet 500 mg PO Q4HP PRN PRN Reason: PAIN/FEVER atorvastatin 20 mg tablet 20 mg PO HS tab tamsulosin 0.4 mg capsule 0.4 mg PO HS Ondansetron [Zofran 4mg ODT] 4 mg PO Q6HP PRN PRN Reason: Nausea Trazodone HCl 50 mg PO HS Tolterodine Tartrate [Detrol LA] 4 mg PO DAILY risperiDONE [Risperidone] 0.5 mg PO BID Warfarin Sodium 3 mg PO DAILY Donepezil HCl [Aricept] 5 mg PO HS Discontinued tramadol 50 mg tablet 50 mg PO TID tab
== END 2018-05-23 15:00 ==
LOC: 2ND 21:08 → ER 21:08 → 2ND 05-23 02:45
PROVIDERS: ADMIT Emergency Medicine; ATTEND Emergency Medicine
CPT/HCPCS: 36415; 70450; 71010; 71045; 72125; 73502; 80048; 80061; 84484; 85025; 85610; 93005; 93306; 99284; G0378

== ENCOUNTER → 2018-08-26 12:51 | Outpatient (CLI) | payer MEDICARE, MEDICAID, SELFPAY ==
--- NOTE | 2018-08-26 12:55 | FL_ITS ---
FL barium swallow modified INDICATION: ITS.REASON: ASPIRATION dysphagia Aspiration history. TECHNIQUE & FINDINGS: Study performed conjunction with speech pathologist Deepa torres. 1 minute 36 seconds seconds fluoroscopy Patient study the lateral projection with video esophagram recording. Various barium consistencies utilized to study swallowing mechanism..: . Honey liquid via cup & via straw . Pureed food: thin & thick. ... Oral phase.. Impairment. Loss of bolus control over base of tongue at times observed. Premature spillage over the base of tongue before swallowing reflex is initiated.- This reflects a significant increased risk for aspiration. No cough reflex elicited with the penetration or premature spillage. The patient's swallowing reflex is significantly delayed. There is very IMPRESSION: Significant delayed of the swallowing reflex. Impaired oral phase. Compared bolus control Spillage over the base the tongue and towards vestibule with significant delayed initiation of swallowing reflex. Patient at increased risk for aspiration with such. Food material and liquid passes over the base the tongue into the vallecula, slow to initiate swallowing reflex. .Please see review recommendations from speech pathology
--- NOTE | 2018-08-26 13:59 | HMH.SLMBS2 ---
Speech & Language Evaluation Speech/Language Mod Barium Swallow Start: 08/26/18 13:49 Freq: once Status: Complete Protocol: Document 08/26/18 13:49 BARRIE (Rec: 08/26/18 13:59 BARRIE [id number]) [facility] Recommendations Diet Dietary Recommendations Pureed Pudding Liquids Treatment/Strategies Treatment Recommendation Compens. Strategy Educat. Strategy/Precaution Recommend Sitting Upright (90 deg) Mod Barium Swallow Impressions Summary and Impressions Oral Phase Impression Severe Impairment Oral Phase Summary Patient experienced premature spillage over tongue base before swallow reflex is initated. Severe risk for aspiration. Pharyngeal Phase Impression Severe Impairment Pharyngeal Phase Summary Swallow reflex is severely delayed. No cough reflex with premature spillage noted during evalaution. Mild residue with honey thick liquids. Speech/Language [facility] Assessment/Goals/Plan Assessment Date of Evaluation: 08/26/18 Evaluation Type Initial Certification Assessment/Problems Dysphagia Does Patient Qualify for Service Yes Qualify/Failure Comment Introduce compensatory strategies for safe swallow. Recommendations PHYSICIAN CERTIFICATION: The specified therapy services are required, authorized, and reviewed every 30 days. Diet Recommendations Dysphagia Pureed Liquid Type Recommendations Pudding Consistency SL Swallow Guidelines Assist w/all meals Dysphagia Swallow Precautions/Strategies Sitting Upright (90 deg) Comment High Aspiration risl Plan Pt/Guardian verbally ack understanding Yes of dx/prognosis/goals G -code Required Yes G-CODES ST Current Status [id number] ST Current Status Modifier CM-At least 80% but less than 100% impaired, limited or restricted ST Goal Status [id number] ST Goal Status Modifier CM-At least 80% but less than 100% impaired, limited or restricted Mod Barium Swallow Setup Exam Setup Radiologist Tenzin Scott Level of Consciousness Awake Alert Appropriate Position (degrees) 90 Mod Barium Swallow-Lat View Textures Lateral View Food Presentation Honey Liquid via Cup Honey Liquid via Straw Pureed Priscilla
== END ==
PROVIDERS: PCP Emergency Medicine; Visit Provider Emergency Medicine
DX: J69.0 Pneumonitis due to inhalation of food and vomit (principal)
CPT/HCPCS: 70371; 92611

== ENCOUNTER 2018-09-05 08:16 | Inpatient (IN) ==
[2018-09-05 08:52] LABS: Basophils % 0.3 % (0.1-2.0); Eosinophils # 0.2 K/mm3 (0.0-0.4); Eosinophils % 1.7 % (0.1-12.0); Hematocrit 40.1 % (42.0-52.0); Hemoglobin 13.2 g/dL (14.1-18.0); Lymphocytes # 0.8 K/mm3 (0.7-4.5); Lymphocytes % 8.2 % (10-50); Mean Corpuscular HGB Conc 32.9 g/dL (31.8-35.4); Mean Corpuscular Hemoglobin 30.5 pg (27.0-31.2); Mean Corpuscular Volume 92.6 fl (80-94); Mean Platelet Volume 7.1 fl (7.4-10.4); Monocytes # 0.8 K/mm3 (0.1-1.0); Monocytes % 8.6 % (1.7-9.3); Neutrophils # 7.6 K/mm3 (1.8-7.8); Neutrophils % 81.2 % (37.0-80.0); Platelet Count 134 K/mm3 (142-424); Red Blood Count 4.32 M/mm3 (4.60-6.20); Red Cell Distribution Width 14.4 % (11.5-17.5); White Blood Count 9.4 K/mm3 (4.8-10.8)
[2018-09-05 09:06] LABS: Albumin Level 3.4 gm/dL (3.4-5.0); Albumin/Globulin Ratio 1.2 (1.1-1.8); Anion Gap 14.1 mEq/L (5-15); Bilirubin,Total 0.9 mg/dL (0.2-1.0); Calcium 8.5 mg/dL (8.5-10.1); Globulin 2.9 gm/dl (1.3-3.2); Potassium 4.1 mmoL/L (3.5-5.1); Total Protein,Serum 6.3 gm/dL (6.4-8.2)
--- NOTE | 2018-09-05 09:25 | Emergency Department Note ---
ED Disposition Clinical Impression: Altered mental status, Pneumonia of right lower lobe due to infectious organism Disposition: Admitted As Inpatient Condition on Discharge: Fair Instructions: DI for Altered Mental Status Referrals: Provider,Referral, [Primary Care Provider] - - Critical Care Critical Care Time: No Attestation: On 09/05/18, the high probability of a clinically significant, sudden or life threatening deterioration of the following system(s) required my full and direct attention, intervention and personal management. The time I documented below is in addition to time spent performing reported procedures but includes the following listed in this critical care notation. Medical Decision Making - Medical Records Medical records reviewed: Yes: I reviewed the patient's medical records. - [place] Inquiry Pt receiving controlled substance: No Vital Signs: 09/05/18 08:16 Temperature 102.2 F H Temperature Source Rectal Pulse Rate [Left Radial] 130 H Respiratory Rate 24 Blood Pressure [Right Arm] 132/73 Blood Pressure Mean [Right Arm] 92 Blood Pressure Source [Right Arm] Automatic Cuff Blood Pressure Position [Right Arm] Sitting 02 Sat by Pulse Oximetry 92 L Oxygen Delivery Method Nasal Cannula Oxygen Flow Rate (LPM) 2 - Lab Data Lab results reviewed: Yes: I reviewed the patient's lab results. Lab Results 09/05/18 08:38: WBC 9.4, RBC 4.32 L, Hgb 13.2 L, Hct 40.1 L, MCV 92.6, MCH 30.5, MCHC 32.9, RDW 14.4, Plt Count 134 L, MPV 7.1 L, Neut % (Auto) 81.2 H, Lymph % (Auto) 8.2 L, [place] % (Auto) 8.6, Eos % (Auto) 1.7, Baso % (Auto) 0.3, Neut # (Auto) 7.6, Lymph # (Auto) 0.8, [place] # (Auto) 0.8, Eos # (Auto) 0.2, Baso # (Auto) 0.0 09/05/18 08:38: Sodium 131 L, Potassium 4.1, Chloride 97 L, Carbon Dioxide 24, Anion Gap 14.1, BUN 12, Creatinine 1.12, Estimated Creat Clear 78, Estimated GFR 64, Est GFR ( Amer) 77, Glucose 122 H, Calcium 8.5, Total Bilirubin 0.9, AST 25, ALT 28, Alkaline Phosphatase 137 H, Total Protein 6.3 L, Albumin 3.4, Globulin 2.9, Albumin/Globulin Ratio 1.2 09/05/18 08:38: Lactate 0.6 Result diagrams: 09/05/18 08:38 09/05/18 08:38 Orders (Tests/Meds): ED MEDICATIONS Generic Name Dose Route Start Last Admin Trade Name Freq PRN Reason Stop Dose Admin Sodium Chloride 1,000 mls @ 999 mls/hr 09/05/18 08:45 09/05/18 08:34 Sod Chlor 0.9% 1000ml Bag IV 09/05/18 09:45 999 mls/hr .Q1H1M ALEXANDER Administration Sodium Chloride 3 ml 09/05/18 09:17 Sodium Chloride 3% 15ml [facility] 10/05/18 09:16 ONCE PRN INDUCE SPUTUM COLLECTION Discontinued Medications Generic Name Dose Route Start Last Admin Trade Name Freq PRN Reason Stop Dose Admin Acetaminophen 650 mg 09/05/18 08:33 09/05/18 08:34 Acetaminophen 650mg Suppository RC 09/05/18 08:34 650 mg ONCE ONE Administration Albuterol/Ipratropium 3 ml 09/05/18 09:17 Duoneb 3ml [facility] 09/05/18 09:18 ONCE ONE Ceftriaxone Sodium 1 gm 09/05/18 09:20 Rocephin 1gm Vial IM 09/05/18 09:21 ONCE ONE Protocol Lidocaine HCl 0 ml 09/05/18 09:20 Lidocaine 1% 10ml Mdv IM 09/05/18 09:21 ONCE ONE ORDERS Category Date Time Status Drug Screen,Urine Stat Lab 09/05/18 08:28 Ordered Urinalysis and Microscopic Stat Lab 09/05/18 08:28 Ordered Blood Culture Stat Micro 09/05/18 08:38 Ordered Sputum Culture & Gram Stain Stat Micro 09/05/18 09:17 Ordered - Radiology Data #1 Image(s): Chest Image Reviewed: Yes I reviewed the patient's radiology results, Yes I reviewed the patient's radiology image Chest x-ray consistent with airspace disease and air bronchograms on the right lower lobe and some trace findings of the same on the left lower lobe - CT Data CT Scan: Head Time Received: 09:[address] Reviewed: Yes: I have reviewed the patient's CT results, I have viewed the radiologist's interpretation General Adult HPI - General Chief complaint: Altered Mental Status Stated complaint: AMS Time Seen by Provider: 09/05/18 08:30 Mode of Arrival: EMS Limitations: Altered Mental Status Description of Symptoms (Recalled from ER Triage Doc. by RN): Per EMS and halfway, staff at halfway went in to give pt morning medicine and found him to no be very responsive, Once sternal rubbed pt is able to state who he is. Very lethagic at this time - History of Present Illness HPI narrative: Patient is a 78-year-old male from a local halfway he was sent over for fever of 102 altered mental status cough and slight shortness of breath. His were unable to get him fully awake this a.m. there is no history of recent trauma he was coughing some yesterday patient is bedridden with Galaviz catheter chronically. Currently he is unable to give much history he will open his mouth to commit open his eyes to commands he will say a word or 2 he is coughing. Associated symptoms: fever/chills Treatments prior to arrival: none - Related Data Home Medications Medication Instructions Recorded Confirmed cholecalciferol (vitamin D3) 50,000 unit PO TU 09/25/17 09/05/18 50,000 unit capsule ranitidine 150 mg tablet 150 mg PO HS 09/25/17 09/05/18 sertraline 50 mg tablet 50 mg PO DAILY 09/25/17 09/05/18 atorvastatin 20 mg tablet 20 mg PO HS tab 11/27/17 09/05/18 tamsulosin 0.4 mg capsule 0.4 mg PO HS 02/14/18 09/05/18 Ondansetron [Zofran 4mg ODT] 4 mg PO Q6HP PRN 03/14/18 09/05/18 Trazodone HCl 50 mg PO HS 03/14/18 09/05/18 Tolterodine Tartrate [Detrol LA] 4 mg PO DAILY 05/22/18 09/05/18 risperiDONE [Risperidone] 0.5 mg PO BID 05/22/18 09/05/18 Donepezil HCl [Aricept] 5 mg PO HS 05/23/18 09/05/18 Warfarin Sodium 4 mg PO DAILY 05/23/18 09/05/18 Cyanocobalamin/Folic Acid [Vitamin 1 each PO DAILY 09/05/18 09/05/18 L02-Xdyce Acid Tablet] Metoprolol Succinate [Toprol XL 25 mg PO DAILY 09/05/18 09/05/18 25mg tablet] Allergies Allergy/AdvReac Type Severity Reaction Status Date / Time No Known Allergies Allergy Verified 07/16/18 11:39 [facility] History - Hepatitis A Screen Drug use history?: No High risk sexual behaviors?: No History of sexually transmitted infection?: No Currently employed?: No Childcare worker?: No Do you have indoor plumbing?: No Do you have electricity?: Yes Attestation statement:: This patient has been screened for Hepatitis A risk factors. I have reviewed the patient's past medical history: Yes Medical History: Reports:: Atherosclerotic Heart Disease, Chronic Obstructive Pulmonary Disease (COPD), Cerebrovascular Accident, Dementia, Hypertension, Internal Pacemaker Denies:: Diabetes Mellitus Type 1, Diabetes Mellitus Type 2 Other Surgeries: Yes: CABG, Pacemaker Comment: Eye surgery, Quad heart bypass - Social History Smoking Status: Never smoker Alcohol Intake: never Alcohol Intake Frequency:: other Substance Use Type: denies use Occupational Status: retired Housing: assisted living facility - Psychiatric History Expresses thoughts of harming self/others: None Suicide Plan Description: No Plan Family Hx:: Unable to obtain ROS Obtained: Yes All systems reviewed & no additional complaints, Yes unobtainable due to mental status, Yes unobtainable due to mental condition - Constitutional Constitutional: Reports system reviewed and no additional complaints, except as docu, Reports as per HPI, Reports fever(s) - Eyes Eyes: Reports system reviewed and no additional complaints, except as docu - ENT Ears, Nose, Mouth, and Throat: Reports system reviewed and no additional co mplaints, except as docu - Cardiovascular Cardiovascular: Reports system reviewed and no additional complaints, except as docu - Respiratory Respiratory: Yes chest congestion, Yes cough, Yes dyspnea - Gastrointestinal Gastrointestingal: Reports: system reviewed and no additional complaints, except as docu - Genitourinary Male Genitourinary: Reports system reviewed and no additional complaints, except as docu - Musculoskeletal Musculoskeletal: Reports system reviewed and no additional complaints, except as docu - Neurologic Neurologic: Reports system reviewed and no additional complaints, except as docu, Reports as per HPI - Endocrine Endocrine: Reports system reviewed and no additional complaints, except as docu, Reports as per HPI - Hematologic/Lymphatic Henatologic/Lymphatic: Reports system reviewed and no additional complaints, except as docu - Allergic/Immunologic Allergic/Immunologic: Reports system reviewed and no additional complaints, except as docu Physical Exam - General General appearance: lethargic - Head Head exam: atraumatic, normocephalic, normal inspection - Eye Eye exam: Present: normal appearance, PERRL, EOMI. Absent: scleral icterus, conjunctival redness, jaundice, conjunctival injection, nystagmus, miosis, mydriasis - ENT ENT exam: Present: normal exam, mucous membranes moist - Neck Neck exam: Present: normal inspection, full ROM. Absent: tenderness, meningismus, lymphadenopathy - Chest Chest inspection: Present: symmetric chest wall rise, other (There is a permanent pacemaker in the left upper chest wall and the chest is post median sternotomy). Absent: tenderness - Respiratory Respiratory exam: Present: other (Patient has coarse rhonchi on the right posterior and anterior lung ruano more pronounced than on the left). Absent: respiratory distress, wheezes, stridor, accessory muscle use, prolonged expiratory phase - Cardiovascular Cardiovascular exam: Present: regular rate, normal rhythm, tachycardia, normal heart sounds, other (Heart rate is 115 and regular) - Abdominal Exam Abdominal exam: Present: soft. Absent: distention, tenderness - exam: Present: other (Galaviz catheter in place there is no urine in the Galaviz catheter diaper is in place that is clean dry) - Extremities Exam Extremities exam: Present: normal inspection, normal capillary refill, other. Absent: tenderness, pedal edema, joint swelling, calf tenderness - Back Exam Back exam: Present: normal inspection. Absent: tenderness - Neurological Exam Neurological exam: Present: other (Patient is oriented to name only he will open eyes and mouth to me and otherwise he will not follow commands not appear to be focally weak in any of the extremities though he does not spontaneously move his legs gag reflex is intact and he does cough well on his own) - Psychiatric Psychiatric exam: Present: flat affect - Skin Skin exam: Present: warm, dry, intact, normal color. Absent: rash, cyanosis, diaphoresis, erythema, pallor, mottled - Lymphatic Lymphatic Findings: no adenopathy
--- NOTE | 2018-09-05 15:56 | History & Physical Report ---
*Admission Date: 09/05/18 *Chief complaint: fever *History of present illness: Patient is a 78-year-old male from [facility] arrived per ems for fever of 102,altered mental status, cough and slight shortness of breath. Fischer catheter chronically. Pt is unable to give much history, he will open his eyes and answer yes but does not answer jeovany. Pt admitted for pneumonia [facility] History I have reviewed the patient's past medical history: Yes Medical History: Reports:: Atherosclerotic Heart Disease, Chronic Obstructive Pulmonary Disease (COPD), Cerebrovascular Accident, Dementia, Hypertension, Internal Pacemaker Denies:: Cancer, Diabetes Mellitus Type 1, Diabetes Mellitus Type 2, MRSA Have you ever received a pneumonia vaccine?: Yes Have you received a flu vaccine this season?: Yes Other Surgeries: Yes: CABG, Pacemaker Amputation: No - *Social History Educational Level: Attended Grade School Smoking Status: Never smoker Alcohol Intake: never Alcohol Intake Frequency:: other Substance Use Type: denies use Occupational Status: retired Housing: assisted living facility Travel in the last 8 weeks: None - Psychiatric History Expresses thoughts of harming self/others: None Suicide Plan Description: No Plan *Family Hx:: Unable to obtain Review of Systems - Review of Systems Review of systems:: unable to obtain Meds Home Medications Medication Instructions Recorded Confirmed Type cholecalciferol (vitamin D3) 50,000 unit PO TU 09/25/17 09/05/18 History 50,000 unit capsule ranitidine 150 mg tablet 150 mg PO HS 09/25/17 09/05/18 History sertraline 50 mg tablet 100 mg PO DAILY 09/25/17 09/05/18 History atorvastatin 20 mg tablet 20 mg PO HS tab 11/27/17 09/05/18 History tamsulosin 0.4 mg capsule 0.4 mg PO HS 02/14/18 09/05/18 History Ondansetron [Zofran 4mg ODT] 4 mg PO Q6HP PRN 03/14/18 09/05/18 History Trazodone HCl 50 mg PO HS 03/14/18 09/05/18 History Tolterodine Tartrate [Detrol LA] 4 mg PO DAILY 05/22/18 09/05/18 History risperiDONE [Risperidone] 0.5 mg PO BID 05/22/18 09/05/18 History Donepezil HCl [Aricept] 5 mg PO HS 05/23/18 09/05/18 History Warfarin Sodium 4 mg PO DAILY 05/23/18 09/05/18 History Cyanocobalamin/Folic Acid [Vitamin 1 each PO DAILY 09/05/18 09/05/18 History F80-[id number] Acid Tablet] Metoprolol Succinate [Toprol XL 25 mg PO DAILY 09/05/18 09/05/18 History 25mg tablet] Allergies Allergy/AdvReac Type Severity Reaction Status Date / Time No Known Allergies Allergy Verified 07/16/18 11:39 Exam Vital signs and Labs for Last 24 Hours: Temp Pulse Resp BP Pulse Ox 100.2 F H 98 H 22 122/77 97 09/05/18 11:45 09/05/18 11:45 09/05/18 11:45 09/05/18 11:45 09/05/18 11:52 Laboratory Results - last 24 hr 09/05/18 08:38: WBC 9.4, RBC 4.32 L, Hgb 13.2 L, Hct 40.1 L, MCV 92.6, MCH 30.5, MCHC 32.9, RDW 14.4, Plt Count 134 L, MPV 7.1 L, Neut % (Auto) 81.2 H, Lymph % (Auto) 8.2 L, [place] % (Auto) 8.6, Eos % (Auto) 1.7, Baso % (Auto) 0.3, Neut # (Auto) 7.6, Lymph # (Auto) 0.8, [place] # (Auto) 0.8, Eos # (Auto) 0.2, Baso # (Auto) 0.0 09/05/18 08:38: Sodium 131 L, Potassium 4.1, Chloride 97 L, Carbon Dioxide 24, Anion Gap 14.1, BUN 12, Creatinine 1.12, Estimated Creat Clear 78, Estimated GFR 64, Est GFR ( Amer) 77, Glucose 122 H, Calcium 8.5, Total Bilirubin 0.9, AST 25, ALT 28, Alkaline Phosphatase 137 H, Total Protein 6.3 L, Albumin 3.4, Globulin 2.9, Albumin/Globulin Ratio 1.2 09/05/18 08:38: Lactate 0.6 I & O for Last 24 hours: Intake & Output 09/03/18 09/04/18 09/05/18 01/18/19 11:59 11:59 11:59 11:59 Weight 219 lb 1 oz Microbiology Reports for the Last 24 Hours: Microbiology 09/05/18 09:45 Sputum - Expectorated Sputum Gram Stain - Final - Constitutional no acute distress - *Routine HEENT Exam Head: Present: normocephalic Eye: Present: PERRL ENT: Present: mucous membranes moist - *Routine Neck Exam Present: supple. Absent: lymphadenopathy - *Routine Respiratory Exam Present: rhonchi, wheezes, diminished air movement - *Routine Cardiovascular Exam Present: RRR - *Routine Abdominal Exam Present: soft, normoactive bowel sounds. Absent: tenderness - *Routine Exam Comments: fischer in place - *Routine Extremities Exam Present: full ROM. Absent: cyanosis, clubbing, edema - *Routine Skin Exam Present: warm. Absent: rash - *Routine Neurological Exam Present: alert, oriented X3
--- NOTE | 2018-09-05 16:08 | Pharmacy Consult Notes ---
[facility] Pharmacy VTE Monitoring - Patient Demographics Admission date: 09/05/18 Report Date: 09/05/18 Time: 16:08 Allergies/Adverse Reactions: Patient Allergies No Known Allergies Allergy (Verified 07/16/18 11:39) Height: 1.78 m Weight: 99.365 kg Patient Problems: Current Active Problems Altered mental status (Acute) Pneumonia of right lower lobe due to infectious organism (Acute) - VTE Risk Labs: VTE Related Lab Results Hgb 13.2 g/dL (14.1-18.0) L 09/05/18 08:38 Hct 40.1 % (42.0-52.0) L 09/05/18 08:38 Plt Count 134 K/mm3 (142-424) L 09/05/18 08:38 BUN 12 mg/dL (7-18) 09/05/18 08:38 Creatinine 1.12 mg/dL (0.70-1.30) 09/05/18 08:38 Estimated Creat Clear 78 mL/min (50-200) 09/05/18 08:38 Was VTE Risk Assessment Performed: Yes VTE Score: 4 VTE Risk Level: Low Risk Clinical Trial Participant: No - Prophylaxis VTE Prophylaxis Ordered?: Yes Types of VTE Prophylaxis: TEDS Knee High Location of Applied Device: Bilateral Lower Extremeties
[2018-09-06 06:56] LABS: Basophils % 0.3 % (0.1-2.0); Eosinophils # 0.3 K/mm3 (0.0-0.4); Eosinophils % 3.9 % (0.1-12.0); Hematocrit 35.8 % (42.0-52.0); Lymphocytes # 0.8 K/mm3 (0.7-4.5); Lymphocytes % 11.8 % (10-50); Mean Corpuscular HGB Conc 33.6 g/dL (31.8-35.4); Mean Corpuscular Hemoglobin 30.4 pg (27.0-31.2); Mean Corpuscular Volume 90.4 fl (80-94); Monocytes # 0.6 K/mm3 (0.1-1.0); Monocytes % 8.8 % (1.7-9.3); Neutrophils # 5.3 K/mm3 (1.8-7.8); Neutrophils % 75.2 % (37.0-80.0); Platelet Count 126 K/mm3 (142-424); Red Blood Count 3.96 M/mm3 (4.60-6.20); Red Cell Distribution Width 14.2 % (11.5-17.5)
[2018-09-06 07:04] LABS: Albumin Level 2.9 gm/dL (3.4-5.0); Bilirubin,Total 0.6 mg/dL (0.2-1.0); Calcium 8.2 mg/dL (8.5-10.1); Total Protein,Serum 5.9 gm/dL (6.4-8.2)
--- NOTE | 2018-09-06 08:25 | Progress Note ---
Internal Medicine - PN: Subj *Date: 09/06/18 *Time: 08:22 Exam Vital signs and Labs for Last 24 Hours: Temp Pulse Resp BP Pulse Ox 97.6 F 83 18 126/69 97 09/06/18 04:00 09/06/18 04:00 09/06/18 04:00 09/06/18 04:00 09/06/18 07:50 Laboratory Results - last 24 hr 09/05/18 08:38: WBC 9.4, RBC 4.32 L, Hgb 13.2 L, Hct 40.1 L, MCV 92.6, MCH 30.5, MCHC 32.9, RDW 14.4, Plt Count 134 L, MPV 7.1 L, Neut % (Auto) 81.2 H, Lymph % (Auto) 8.2 L, [place] % (Auto) 8.6, Eos % (Auto) 1.7, Baso % (Auto) 0.3, Neut # (Auto) 7.6, Lymph # (Auto) 0.8, [place] # (Auto) 0.8, Eos # (Auto) 0.2, Baso # (Auto) 0.0 09/05/18 08:38: Sodium 131 L, Potassium 4.1, Chloride 97 L, Carbon Dioxide 24, Anion Gap 14.1, BUN 12, Creatinine 1.12, Estimated Creat Clear 78, Estimated GFR 64, Est GFR ( Amer) 77, Glucose 122 H, Calcium 8.5, Total Bilirubin 0.9, AST 25, ALT 28, Alkaline Phosphatase 137 H, Total Protein 6.3 L, Albumin 3.4, Globulin 2.9, Albumin/Globulin Ratio 1.2 09/05/18 08:38: Lactate 0.6 09/06/18 06:33: WBC 7.0 D, RBC 3.96 L, Hgb 12.0 L, Hct 35.8 L, MCV 90.4, MCH 30.4, MCHC 33.6, RDW 14.2, Plt Count 126 L, MPV 7.0 L, Neut % (Auto) 75.2, Lymph % (Auto) 11.8, [place] % (Auto) 8.8, Eos % (Auto) 3.9, Baso % (Auto) 0.3, Neut # (Auto) 5.3, Lymph # (Auto) 0.8, [place] # (Auto) 0.6, Eos # (Auto) 0.3, Baso # (Auto) 0.0 09/06/18 06:33: Sodium 133 L, Potassium 4.0, Chloride 100, Carbon Dioxide 25, Anion Gap 12.0, BUN 13, Creatinine 0.92, Estimated Creat Clear 87, Estimated GFR 80, Est GFR ( Amer) 97 D, Glucose 98, Calcium 8.2 L, Total Bilirubin 0.6, AST 38 H D, ALT 27, Alkaline Phosphatase 112, Total Protein 5.9 L, Albumin 2.9 L D, Globulin 3.0, Albumin/Globulin Ratio 1.0 L I & O for Last 24 hours: Intake & Output 09/03/18 09/04/18 09/05/18 09/06/18 11:59 11:59 11:59 11:59 Output Total 1100 / 1100 Balance -1100 / -1100 Weight 219 lb 1 oz 219 lb 1 oz Microbiology Reports for the Last 24 Hours: Microbiology 09/05/18 09:45 Sputum - Expectorated Sputum Gram Stain - Final 09/05/18 09:45 Sputum - Expectorated Sputum Sputum Culture - Preliminary - Constitutional no acute distress - *Routine HEENT Exam Head: Present: normocephalic Eye: Present: PERRL ENT: Present: mucous membranes moist - *Routine Neck Exam Present: supple. Absent: lymphadenopathy - *Routine Respiratory Exam Present: rhonchi, wheezes, diminished air movement - *Routine Cardiovascular Exam Present: RRR, murmur Comments: pacemaker - *Routine Abdominal Exam Present: soft, normoactive bowel sounds. Absent: tenderness - *Routine Extremities Exam Absent: cyanosis, clubbing, edema - *Routine Skin Exam Present: warm. Absent: rash - *Routine Neurological Exam Present: alert, oriented X3 Assessment and Plan (1) Pacemaker Current visit: Yes Status: Acute Category: Medical Code(s): Z95.0 - Presence of cardiac pacemaker (2) Chronic a-fib Current visit: Yes Status: Acute Category: Medical Code(s): I48.2 - Chronic atrial fibrillation (3) Pneumonia Current visit: Yes Status: Acute Qualifiers: Laterality: left Lung location: lower lobe of lung Category: Medical Code(s): J18.9 - Pneumonia, unspecified organism (4) Altered mental status Current visit: Yes Status: Acute Qualifiers: Altered mental status type: disorientation Qualified Code(s): R41.0 - Disorientation, unspecified Category: Medical Code(s): R41.82 - Altered mental status, unspecified (5) Dysphagia Current visit: Yes Status: Acute Category: Medical Code(s): R13.10 - Dysphagia, unspecified (6) Chronic indwelling Galaviz catheter Current visit: Yes Status: Acute Category: Medical Code(s): Z92.89 - Personal history of other medical treatment (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 Current visit: Yes Status: Acute Category: Medical Code(s): Z79.01 - lobsterman (current) use of anticoagulants (8) BPH (benign prostatic hyperplasia) Current visit: No Status: Chronic Qualifiers: Lower urinary tract symptom presence: unspecified whether lower urinary tract symptoms present Qualified Code(s): N40.0 - Benign prostatic hyperplasia without lower urinary tract symptoms Category: Medical Code(s): N40.0 - Benign prostatic hyperplasia without lower urinary tract symptoms (9) COPD (chronic obstructive pulmonary disease) Current visit: No Status: Chronic Qualifiers: COPD type: chronic bronchitis Chronic bronchitis type: mixed simple and mucopurulent Qualified Code(s): J41.8 - Mixed simple and mucopurulent chronic bronchitis Category: Medical Code(s): J44.9 - Chronic obstructive pulmonary disease, unspecified - Assessment and plan all Dx Assessment and Plan for all problems:: rounded with dave all orders per dave
[2018-09-06 08:41] LABS: INR 2.14 (0.9-1.1); Prothrombin Time 21.6 seconds (9.4-11.8)
[2018-09-07 07:42] LABS: Basophils % 0.5 % (0.1-2.0); Eosinophils # 0.3 K/mm3 (0.0-0.4); Eosinophils % 4.7 % (0.1-12.0); Hemoglobin 11.2 g/dL (14.1-18.0); Lymphocytes # 0.8 K/mm3 (0.7-4.5); Lymphocytes % 12.9 % (10-50); Mean Corpuscular Hemoglobin 30.8 pg (27.0-31.2); Mean Corpuscular Volume 90.6 fl (80-94); Monocytes # 0.5 K/mm3 (0.1-1.0); Monocytes % 8.2 % (1.7-9.3); Neutrophils # 4.8 K/mm3 (1.8-7.8); Neutrophils % 73.7 % (37.0-80.0); Platelet Count 124 K/mm3 (142-424); Red Blood Count 3.64 M/mm3 (4.60-6.20); Red Cell Distribution Width 14.1 % (11.5-17.5); White Blood Count 6.5 K/mm3 (4.8-10.8)
[2018-09-07 07:51] LABS: Anion Gap 12.5 mEq/L (5-15); Potassium 3.5 mmoL/L (3.5-5.1)
--- NOTE | 2018-09-07 08:51 | Progress Note ---
Internal Medicine - PN: Subj *Date: 09/07/18 *Time: 08:49 Interval history: pt with pos c diff but grossly doing better Exam Vital signs and Labs for Last 24 Hours: Temp Pulse Resp BP Pulse Ox 97.7 F 84 17 142/67 H 99 09/07/18 08:00 09/07/18 08:00 09/07/18 08:00 09/07/18 08:00 09/07/18 08:23 Laboratory Results - last 24 hr 09/06/18 15:05: Stl Aeromonas (PCR) Not detected, Stl C. cayetanensis PCR Not detected, Stool Rotavirus (PCR) Not detected, Stl Adenov F 40/41 PCR Not detected, Stool Astrovirus (PCR) Not detected, Stool Campylobacter PCR Not detected, Stl C.difficile Tox PCR Detected A, Stool Cryptosporidium PCR Not detected, Stl E.coli Shiga Tox PCR Not detected, Stool E coli O157 PCR Not detected, Stl Enterotoxigenic E PCR Not detected, Stool EPEC (PCR) Not detected, Stool EAEC (PCR) Not detected, Stl E. histolytica PCR Not detected, Stool Giardia Lamblia PCR Not detected, Stool Salmonella PCR Not detected, Stool Sapovirus (PCR) Not detected, Stl P. shigelloides PCR Not detected, Stl Shigella/EIEC PCR Not detected, St Y.enterocolitica PCR Not detected, Stool Vibrio (PCR) Not detected, Stl Vibrio cholerae PCR Not detected, Stl Norovirus GI/GII PCR Not detected 09/07/18 06:45: WBC 6.5, RBC 3.64 L, Hgb 11.2 L, Hct 33.0 L, MCV 90.6, MCH 30.8, MCHC 34.0, RDW 14.1, Plt Count 124 L, MPV 7.0 L, Neut % (Auto) 73.7, Lymph % (Auto) 12.9, [place] % (Auto) 8.2, Eos % (Auto) 4.7, Baso % (Auto) 0.5, Neut # (Auto) 4.8, Lymph # (Auto) 0.8, [place] # (Auto) 0.5, Eos # (Auto) 0.3, Baso # (Auto) 0.0 09/07/18 06:45: Sodium 133 L, Potassium 3.5, Chloride 100, Carbon Dioxide 24, Anion Gap 12.5, BUN 13, Creatinine 0.94, Estimated Creat Clear 87, Estimated GFR 78, Est GFR ( Amer) 94, Glucose 97, Calcium 8.0 L I & O for Last 24 hours: Intake & Output 09/04/18 09/05/18 09/06/18 09/07/18 11:59 11:59 11:59 11:59 Intake Total 630 / 630 2298 / 2298 Output Total 1100 / 1100 125 / 125 Balance -470 / -470 2173 / 2173 Weight 219 lb 1 oz 219 lb 1 oz 219 lb Microbiology Reports for the Last 24 Hours: Microbiology 09/05/18 09:45 Sputum - Expectorated Sputum Gram Stain - Final 09/05/18 09:45 Sputum - Expectorated Sputum Sputum Culture - Preliminary - Constitutional no acute distress, obese - *Routine HEENT Exam Head: Present: normocephalic Eye: Present: EOMI, PERRL ENT: Present: mucous membranes dry - *Routine Neck Exam Absent: JVD - *Routine Respiratory Exam Present: decreased breath sounds - *Routine Cardiovascular Exam Present: RRR, murmur, S4 - *Routine Abdominal Exam Present: soft - *Routine Extremities Exam Absent: calf tenderness - *Routine Skin Exam Present: intact - *Routine Neurological Exam Present: alert, oriented X3, CN II-XII intact - Routine Psychiatric Exam Present: normal affect Assessment and Plan (1) Pacemaker Current visit: Yes Status: Acute Category: Medical Code(s): Z95.0 - Presence of cardiac pacemaker (2) Chronic a-fib Current visit: Yes Status: Acute Category: Medical Code(s): I48.2 - Chronic atrial fibrillation (3) Pneumonia Current visit: Yes Status: Acute Qualifiers: Laterality: left Lung location: lower lobe of lung Category: Medical Code(s): J18.9 - Pneumonia, unspecified organism (4) Altered mental status Current visit: Yes Status: Acute Qualifiers: Altered mental status type: disorientation Qualified Code(s): R41.0 - Disorientation, unspecified Category: Medical Code(s): R41.82 - Altered mental status, unspecified (5) Dysphagia Current visit: Yes Status: Acute Category: Medical Code(s): R13.10 - Dysphagia, unspecified (6) Chronic indwelling Galaviz catheter Current visit: Yes Status: Acute Category: Medical Code(s): Z92.89 - Personal history of other medical treatment (7) half-way current use of anticoagulant therapy Current visit: Yes Status: Acute Category: Medical Code(s): 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 (8) BPH (benign prostatic hyperplasia) Current visit: No Status: Chronic Qualifiers: Lower urinary tract symptom presence: unspecified whether lower urinary tract symptoms present Qualified Code(s): N40.0 - Benign prostatic hyperplasia without lower urinary tract symptoms Category: Medical Code(s): N40.0 - Benign prostatic hyperplasia without lower urinary tract symptoms (9) COPD (chronic obstructive pulmonary disease) Current visit: No Status: Chronic Qualifiers: COPD type: chronic bronchitis Chronic bronchitis type: mixed simple and mucopurulent Qualified Code(s): J41.8 - Mixed simple and mucopurulent chronic bronchitis Category: Medical Code(s): J44.9 - Chronic obstructive pulmonary disease, unspecified (10) C. difficile enteritis Current visit: Yes Status: Acute Category: Medical Code(s): A04.72 - Enterocolitis due to Clostridium difficile, not specified as recurrent
[2018-09-07 10:48] LABS: INR 1.9 (0.9-1.1); Prothrombin Time 19.2 seconds (9.4-11.8)
[2018-09-08 07:56] LABS: Basophils % 0.6 % (0.1-2.0); Eosinophils # 0.3 K/mm3 (0.0-0.4); Eosinophils % 5.2 % (0.1-12.0); Hematocrit 34.5 % (42.0-52.0); Hemoglobin 11.9 g/dL (14.1-18.0); Lymphocytes # 0.7 K/mm3 (0.7-4.5); Lymphocytes % 14.2 % (10-50); Mean Corpuscular HGB Conc 34.5 g/dL (31.8-35.4); Mean Corpuscular Hemoglobin 30.9 pg (27.0-31.2); Mean Corpuscular Volume 89.5 fl (80-94); Mean Platelet Volume 6.8 fl (7.4-10.4); Monocytes # 0.4 K/mm3 (0.1-1.0); Monocytes % 7.8 % (1.7-9.3); Neutrophils # 3.7 K/mm3 (1.8-7.8); Neutrophils % 72.2 % (37.0-80.0); Platelet Count 142 K/mm3 (142-424); Red Blood Count 3.86 M/mm3 (4.60-6.20); Red Cell Distribution Width 14.1 % (11.5-17.5); White Blood Count 5.2 K/mm3 (4.8-10.8)
--- NOTE | 2018-09-08 07:57 | Progress Note ---
Internal Medicine - PN: Subj *Date: 09/08/18 *Time: 08:00 Interval history: doing ok - no new c/o Exam Vital signs and Labs for Last 24 Hours: Temp Pulse Resp BP Pulse Ox 97.9 F 71 20 106/46 L 96 09/08/18 04:00 09/08/18 04:00 09/08/18 04:00 09/08/18 04:00 09/08/18 04:00 Laboratory Results - last 24 hr 09/07/18 10:30: PT 19.2 H, INR 1.90 H I & O for Last 24 hours: Intake & Output 09/05/18 09/06/18 09/07/18 09/08/18 11:59 11:59 11:59 11:59 Intake Total 630 / 630 2548 / 2548 2655 / 2655 Output Total 1100 / 1100 125 / 125 Balance -470 / -470 2423 / 2423 2655 / 2655 Weight 219 lb 1 oz 219 lb 1 oz 219 lb Microbiology Reports for the Last 24 Hours: Microbiology 09/05/18 08:38 Blood Blood Culture - Preliminary NO GROWTH AFTER 48 HOURS 09/05/18 09:45 Sputum - Expectorated Sputum Gram Stain - Final 09/05/18 09:45 Sputum - Expectorated Sputum Sputum Culture - Preliminary - Constitutional no acute distress, obese - *Routine HEENT Exam Head: Present: normocephalic Eye: Present: EOMI, PERRL ENT: Present: mucous membranes dry - *Routine Neck Exam Present: supple - *Routine Respiratory Exam Absent: decreased breath sounds - *Routine Cardiovascular Exam Present: RRR, murmur - *Routine Abdominal Exam Present: soft - *Routine Extremities Exam Absent: edema - *Routine Skin Exam Present: intact - *Routine Neurological Exam Present: alert, CN II-XII intact - Routine Psychiatric Exam Present: normal affect Assessment and Plan (1) Pacemaker Current visit: Yes Status: Acute Category: Medical Code(s): Z95.0 - Presence of cardiac pacemaker (2) Chronic a-fib Current visit: Yes Status: Acute Category: Medical Code(s): I48.2 - Chronic atrial fibrillation (3) Pneumonia Current visit: Yes Status: Acute Qualifiers: Laterality: left Lung location: lower lobe of lung Category: Medical Code(s): J18.9 - Pneumonia, unspecified organism (4) Altered mental status Current visit: Yes Status: Acute Qualifiers: Altered mental status type: disorientation Qualified Code(s): R41.0 - Disorientation, unspecified Category: Medical Code(s): R41.82 - Altered mental status, unspecified (5) Dysphagia Current visit: Yes Status: Acute Category: Medical Code(s): R13.10 - Dysphagia, unspecified (6) Chronic indwelling Galaviz catheter Current visit: Yes Status: Acute Category: Medical Code(s): Z92.89 - Personal history of other medical treatment (7) group home current use of anticoagulant therapy Current visit: Yes Status: Acute Category: Medical Code(s): Z79.01 - equipment operator intermodal yard (current) use of anticoagulants (8) BPH (benign prostatic hyperplasia) Current visit: No Status: Chronic Qualifiers: Lower urinary tract symptom presence: unspecified whether lower urinary tract symptoms present Qualified Code(s): N40.0 - Benign prostatic hyperplasia without lower urinary tract symptoms Category: Medical Code(s): N40.0 - Benign prostatic hyperplasia without lower urinary tract symptoms (9) COPD (chronic obstructive pulmonary disease) Current visit: No Status: Chronic Qualifiers: COPD type: chronic bronchitis Chronic bronchitis type: mixed simple and mucopurulent Qualified Code(s): J41.8 - Mixed simple and mucopurulent chronic bronchitis Category: Medical Code(s): J44.9 - Chronic obstructive pulmonary disease, unspecified (10) C. difficile enteritis Current visit: Yes Status: Acute Category: Medical Code(s): A04.72 - Enterocolitis due to Clostridium difficile, not specified as recurrent (11) Haemophilus infection Current visit: Yes Status: Acute Category: Medical Code(s): A49.2 - Hemophilus influenzae infection, unspecified site
[2018-09-08 08:01] LABS: Anion Gap 11.7 mEq/L (5-15); Calcium 8.3 mg/dL (8.5-10.1); Potassium 3.7 mmoL/L (3.5-5.1)
[2018-09-08 09:27] LABS: INR 1.58 (0.9-1.1); Prothrombin Time 16.1 seconds (9.4-11.8)
--- NOTE | 2018-09-08 11:40 | Progress Note ---
Internal Medicine - PN: Subj *Date: 09/08/18 *Time: 11:40 Exam Vital signs and Labs for Last 24 Hours: Temp Pulse Resp BP Pulse Ox 98.1 F 79 17 125/73 95 09/08/18 11:15 09/08/18 11:15 09/08/18 11:15 09/08/18 11:15 09/08/18 11:15 Laboratory Results - last 24 hr 09/08/18 07:10: WBC 5.2, RBC 3.86 L, Hgb 11.9 L, Hct 34.5 L, MCV 89.5, MCH 30.9, MCHC 34.5, RDW 14.1, Plt Count 142, MPV 6.8 L, Neut % (Auto) 72.2, Lymph % (Auto) 14.2, [place] % (Auto) 7.8, Eos % (Auto) 5.2, Baso % (Auto) 0.6, Neut # (Auto) 3.7, Lymph # (Auto) 0.7, [place] # (Auto) 0.4, Eos # (Auto) 0.3, Baso # (Auto) 0.0 09/08/18 07:10: Sodium 134 L, Potassium 3.7, Chloride 101, Carbon Dioxide 25, Anion Gap 11.7, BUN 9 D, Creatinine 0.91, Estimated Creat Clear 87, Estimated GFR 81, Est GFR ( Amer) 98, Glucose 104, Calcium 8.3 L 09/08/18 09:00: PT 16.1 H, INR 1.58 H I & O for Last 24 hours: Intake & Output 09/05/18 09/06/18 09/07/18 09/08/18 23:59 23:59 23:59 23:59 Intake Total 150 / 150 1110 / 1110 2737 / 2737 Output Total 500 / 500 725 / 725 Balance -350 / -350 385 / 385 2737 Weight 99.365 kg 99.337 kg Microbiology Reports for the Last 24 Hours: Microbiology 09/05/18 09:45 Sputum - Expectorated Sputum Gram Stain - Final 09/05/18 09:45 Sputum - Expectorated Sputum Sputum Culture - Final Haemophilus parahaemolyticus 09/05/18 08:38 Blood Blood Culture - Preliminary NO GROWTH AFTER 48 HOURS Assessment and Plan (1) Pacemaker Current visit: Yes Status: Acute Category: Medical Code(s): Z95.0 - Presence of cardiac pacemaker (2) Chronic a-fib Current visit: Yes Status: Acute Category: Medical Code(s): I48.2 - Chronic atrial fibrillation (3) Pneumonia Current visit: Yes Status: Acute Qualifiers: Laterality: left Lung location: lower lobe of lung Category: Medical Code(s): J18.9 - Pneumonia, unspecified organism (4) Altered mental status Current visit: Yes Status: Acute Qualifiers: Altered mental status type: disorientation Qualified Code(s): R41.0 - Disorientation, unspecified Category: Medical Code(s): R41.82 - Altered mental status, unspecified (5) Dysphagia Current visit: Yes Status: Acute Category: Medical Code(s): R13.10 - Dysphagia, unspecified (6) Chronic indwelling Galaviz catheter Current visit: Yes Status: Acute Category: Medical Code(s): Z92.89 - Personal history of other medical treatment (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 Current visit: Yes Status: Acute Category: Medical Code(s): Z79.01 - dedicated intermodal truck driver (current) use of anticoagulants (8) BPH (benign prostatic hyperplasia) Current visit: No Status: Chronic Qualifiers: Lower urinary tract symptom presence: unspecified whether lower urinary tract symptoms present Qualified Code(s): N40.0 - Benign prostatic hyperplasia without lower urinary tract symptoms Category: Medical Code(s): N40.0 - Benign prostatic hyperplasia without lower urinary tract symptoms (9) COPD (chronic obstructive pulmonary disease) Current visit: No Status: Chronic Qualifiers: COPD type: chronic bronchitis Chronic bronchitis type: mixed simple and mucopurulent Qualified Code(s): J41.8 - Mixed simple and mucopurulent chronic bronchitis Category: Medical Code(s): J44.9 - Chronic obstructive pulmonary disease, unspecified (10) C. difficile enteritis Current visit: Yes Status: Acute Category: Medical Code(s): A04.72 - Enterocolitis due to Clostridium difficile, not specified as recurrent The patient's infection will respond to the chosen ABx?: Yes Is the patient receiving the right drug, dose, and route?: Yes Could a more targeted ABx be ordered?: No (HAEMOPHILUS SENSITIVE TO LEVAQUIN)
[2018-09-09 06:55] LABS: Basophils % 0.4 % (0.1-2.0); Eosinophils # 0.3 K/mm3 (0.0-0.4); Eosinophils % 3.8 % (0.1-12.0); Hematocrit 33.9 % (42.0-52.0); Hemoglobin 11.4 g/dL (14.1-18.0); Lymphocytes % 14.7 % (10-50); Mean Corpuscular HGB Conc 33.7 g/dL (31.8-35.4); Mean Corpuscular Hemoglobin 30.5 pg (27.0-31.2); Mean Corpuscular Volume 90.3 fl (80-94); Mean Platelet Volume 6.8 fl (7.4-10.4); Monocytes # 0.5 K/mm3 (0.1-1.0); Monocytes % 7.5 % (1.7-9.3); Neutrophils # 5.1 K/mm3 (1.8-7.8); Neutrophils % 73.5 % (37.0-80.0); Platelet Count 138 K/mm3 (142-424); Red Blood Count 3.75 M/mm3 (4.60-6.20); Red Cell Distribution Width 14.1 % (11.5-17.5); White Blood Count 6.9 K/mm3 (4.8-10.8)
[2018-09-09 06:58] LABS: INR 1.61 (0.9-1.1); Prothrombin Time 16.4 seconds (9.4-11.8)
[2018-09-09 06:59] LABS: Anion Gap 12.9 mEq/L (5-15); Potassium 3.9 mmoL/L (3.5-5.1)
--- NOTE | 2018-09-09 08:59 | Discharge Summary ---
General - General Admission date:: 09/05/18 Discharge date: 09/09/18 HPI HPI: Patient is a 78-year-old male from [facility] arrived per ems for fever of 102,altered mental status, cough and slight shortness of breath. Galaviz catheter chronically. Pt is unable to give much history, he will open his eyes and answer yes but does not answer jeovany. Pt admitted for pneumonia Hospital Course Hospital Course: pt has slowly improved with resp treatments and ivf and abx - he has h.parainflu resp infection and also c diff - labs and vs stable and pt will be d/c to [facility] this am Objective Vital signs: Temp Pulse Resp BP Pulse Ox 99.2 F 70 18 127/57 L 95 09/09/18 08:00 09/09/18 08:00 09/09/18 08:00 09/09/18 08:00 09/09/18 08:00 no acute distress, obese - *Routine HEENT Exam Head: Present: normocephalic Eye: Present: EOMI, PERRL ENT: Present: mucous membranes dry - *Routine Neck Exam Present: supple - *Routine Respiratory Exam Present: rhonchi - *Routine Cardiovascular Exam Present: murmur, irregular rhythm - *Routine Abdominal Exam Present: soft - *Routine Extremities Exam Absent: calf tenderness - *Routine Skin Exam Present: intact - *Routine Neurological Exam Present: alert, CN II-XII intact - Routine Psychiatric Exam Present: normal affect Results Labs on day of discharge: Labs from last 24 hours 09/09/18 09/09/18 09/09/18 06:18 06:18 06:18 WBC 6.9 D RBC 3.75 L Hgb 11.4 L Hct 33.9 L MCV 90.3 MCH 30.5 MCHC 33.7 RDW 14.1 Plt Count 138 L MPV 6.8 L Neut % (Auto) 73.5 Lymph % (Auto) 14.7 [place] % (Auto) 7.5 Eos % (Auto) 3.8 Baso % (Auto) 0.4 Neut # (Auto) 5.1 Lymph # (Auto) 1.0 [place] # (Auto) 0.5 Eos # (Auto) 0.3 Baso # (Auto) 0.0 PT 16.4 H INR 1.61 H Sodium 134 L Potassium 3.9 Chloride 101 Carbon Dioxide 24 Anion Gap 12.9 BUN 10 Creatinine 0.93 Estimated Creat Clear 87 Estimated GFR 79 Est GFR ( Amer) 95 Glucose 100 Calcium 8.0 L 09/08/18 09:00 WBC RBC Hgb Hct MCV MCH MCHC RDW Plt Count MPV Neut % (Auto) Lymph % (Auto) [place] % (Auto) Eos % (Auto) Baso % (Auto) Neut # (Auto) Lymph # (Auto) [place] # (Auto) Eos # (Auto) Baso # (Auto) PT 16.1 H INR 1.58 H Sodium Potassium Chloride Carbon Dioxide Anion Gap BUN Creatinine Estimated Creat Clear Estimated GFR Est GFR ( Amer) Glucose Calcium Preliminary micro results at discharge 09/05/18 08:38 Blood Culture - Preliminary Blood NO GROWTH AFTER 48 HOURS DS: Diagnosis - Discharge Diagnosis (1) Pacemaker Status: Acute (2) Chronic a-fib Status: Acute (3) Pneumonia Status: Acute (4) Altered mental status Status: Acute (5) Dysphagia Status: Acute (6) Chronic indwelling Galaviz catheter Status: Acute (7) assisted current use of anticoagulant therapy Status: Acute (8) BPH (benign prostatic hyperplasia) Status: Chronic (9) COPD (chronic obstructive pulmonary disease) Status: Chronic (10) C. difficile enteritis Status: Acute (11) Haemophilus infection Status: Acute Discharge Plan - Patient Discharge Instructions ACTIVITY: Continue current activity DIET: continue same diet Patient Instructions: DI for Pneumonia -- Adult, DI for Antibiotic -- associated Colitis -- C difficile, DI for Atrial Fibrillation, Warfarin, DI for Altered Mental Status, Coumadin Vitamin K/ Diet - Follow up Plan Disposition: er [facility] Home Medications: Home Medications Medication Instructions Recorded Confirmed Type cholecalciferol (vitamin D3) 50,000 unit PO TU 09/25/17 09/05/18 History 50,000 unit capsule ranitidine 150 mg tablet 150 mg PO HS 09/25/17 09/05/18 History atorvastatin 20 mg tablet 20 mg PO HS tab 11/27/17 09/05/18 History tamsulosin 0.4 mg capsule 0.4 mg PO HS 02/14/18 09/05/18 History Ondansetron [Zofran 4mg ODT] 4 mg PO Q6HP PRN 03/14/18 09/05/18 History Trazodone HCl 25 mg PO HS 03/14/18 09/06/18 History Tolterodine Tartrate [Detrol LA] 4 mg PO DAILY 05/22/18 09/05/18 History risperiDONE [Risperidone] 0.5 mg PO HS 05/22/18 09/06/18 History Warfarin Sodium 4 mg PO DAILY 05/23/18 09/05/18 History Cyanocobalamin/Folic Acid [Vitamin 1 each PO DAILY 09/05/18 09/05/18 History [id number] Acid Tablet] Metoprolol Succinate [Toprol XL 25 mg PO DAILY 09/05/18 09/05/18 History 25mg tablet] Donepezil HCl [Aricept 5mg 5 mg PO HS 09/06/18 09/06/18 History Tablet] Sertraline HCl [Zoloft 100mg 100 mg PO DAILY 09/06/18 09/06/18 History tablet] Vancomycin HCl 125 mg PO Q6H 10 Days syringe 09/09/18 Rx levoFLOXacin [Levaquin 500mg 500 mg PO DAILY #7 tab 09/09/18 Rx tab] Prescriptions/Medication Reconciliation: New Sertraline HCl [Zoloft 100mg tablet] 100 mg PO DAILY tablet levoFLOXacin [Levaquin 500mg tab] 500 mg PO DAILY #7 tab Vancomycin HCl 125 mg PO Q6H 10 Days syringe Donepezil HCl [Aricept 5mg Tablet] 5 mg PO HS tablet Warfarin Sodium [Coumadin 2mg tablet] 2 mg PO COUMADIN tablet Continue ranitidine 150 mg tablet 150 mg PO HS cholecalciferol (vitamin D3) 50,000 unit capsule 50,000 unit PO TU atorvastatin 20 mg tablet 20 mg PO HS tab tamsulosin 0.4 mg capsule 0.4 mg PO HS Ondansetron [Zofran 4mg ODT] 4 mg PO Q6HP PRN PRN Reason: Nausea Cyanocobalamin/Folic Acid [Vitamin C71-Vofqb Acid Tablet] 1 each PO DAILY Metoprolol Succinate [Toprol XL 25mg tablet] 25 mg PO DAILY Sertraline HCl [Zoloft 100mg tablet] 100 mg PO DAILY Donepezil HCl [Aricept 5mg Tablet] 5 mg PO HS Trazodone HCl 25 mg PO HS Tolterodine Tartrate [Detrol LA] 4 mg PO DAILY risperiDONE [Risperidone] 0.5 mg PO HS Warfarin Sodium 4 mg PO DAILY
== END 2018-09-09 12:00 | DRG 194 ==
LOC: ER 08:16 → 2ND 11:02
PROVIDERS: ADMIT Emergency Medicine; ATTEND Emergency Medicine
CPT/HCPCS: 36415; 70450; 71010; 71045; 80048; 80053; 83605; 85025; 85610; 87040; 87070; 87077; 87184; 87205; 87507; 93005; 94761; 96365; 96366; 96375; 99284; J1956

== ENCOUNTER 2018-09-27 13:13 | Inpatient (IN) ==
--- NOTE | 2018-09-27 13:12 | Emergency Department Note ---
ED Disposition Clinical Impression: Healthcare-associated pneumonia, COPD exacerbation Altered mental status Qualifiers: Altered mental status type: disorientation Qualified Code(s): R41.0 - Disorientation, unspecified Disposition: Admitted as Observation Condition on Discharge: Fair Referrals: Provider,Referral, [Primary Care Provider] - - Critical Care Critical Care Time: No Attestation: On , the high probability of a clinically significant, sudden or life threatening deterioration of the following system(s) required my full and direct attention, intervention and personal management. The time I documented below is in addition to time spent performing reported procedures but includes the following listed in this critical care notation. Medical Decision Making - [place] Inquiry Pt receiving controlled substance: No Vital Signs: 09/27/18 13:07 09/27/18 13:20 09/27/18 13:32 Temperature 98.3 F Temperature Source Oral Pulse Rate 71 Pulse Rate [Right Brachial] 85 76 Respiratory Rate 15 Blood Pressure [Right Arm] 128/74 Blood Pressure Mean [Right Arm] 92 Blood Pressure Source [Right Arm] Automatic Cuff Blood Pressure Position [Right Arm] Sitting 02 Sat by Pulse Oximetry 94 L 95 95 Oxygen Delivery Method Room Air Room Air 09/27/18 13:52 09/27/18 14:30 09/27/18 15:00 Temperature Temperature Source Pulse Rate Pulse Rate [Right Brachial] 93 H 87 89 Respiratory Rate Blood Pressure [Right Arm] 109/75 L 135/80 147/84 H Blood Pressure Mean [Right Arm] 86 98 105 Blood Pressure Source [Right Arm] Automatic Cuff Blood Pressure Position [Right Arm] Sitting 02 Sat by Pulse Oximetry 95 93 L 93 L Oxygen Delivery Method - Lab Data Lab Results 09/27/18 13:10: WBC 11.1 H, RBC 4.18 L, Hgb 12.9 L, Hct 38.2 L, MCV 91.4, MCH 30.8, MCHC 33.7, RDW 13.8, Plt Count 127 L, MPV 7.3 L, Neut % (Auto) 81.4 H, Lymph % (Auto) 9.3 L, [place] % (Auto) 8.8, Eos % (Auto) 0.3, Baso % (Auto) 0.3, Neut # (Auto) 9.0 H, Lymph # (Auto) 1.0, [place] # (Auto) 1.0, Eos # (Auto) 0.0, Baso # (Auto) 0.0 09/27/18 13:10: Sodium 131 L, Potassium 4.1, Chloride 96 L, Carbon Dioxide 29, Anion Gap 10.1, BUN 11, Creatinine 1.09, Estimated Creat Clear 79, Estimated GFR 66, Est GFR ( Amer) 79, Glucose 108 H, Calcium 8.7, Total Bilirubin 1.0, AST 17, ALT 26, Alkaline Phosphatase 136 H, Total Protein 6.4, Albumin 3.1 L, Globulin 3.3 H, Albumin/Globulin Ratio 0.9 L 09/27/18 13:10: Lactate 0.8 09/27/18 13:10: PT 16.5 H, INR 1.62 H 09/27/18 13:14: Specimen Source Left radial, O2 % Room air, ABG pH 7.49 H, ABG pCO2 32.0 L, ABG pO2 85.1, ABG HCO3 23.8, ABG Total CO2 24.8, ABG O2 Saturation 97, ABG Base Excess 0.4, Camilo Test Acceptable Result diagrams: 09/27/18 13:10 09/27/18 13:10 Orders (Tests/Meds): ED MEDICATIONS Generic Name Dose Route Start Last Admin Trade Name Freq PRN Reason Stop Dose Admin Cefepime HCl 2 gm/ Sodium 100 mls @ 200 mls/hr 09/27/18 15:00 09/27/18 14:15 Chloride IV 10/11/18 14:59 200 mls/hr Q12H ALEXANDER Administration Protocol Levofloxacin/Dextrose 750 mg in 150 mls @ 100 mls/hr 09/27/18 13:00 09/27/18 14:34 Levofloxacin 750mg/150ml Premix IV 10/11/18 12:59 100 mls/hr Q24H ALEXANDER Administration Protocol Vancomycin HCl 1,750 mg/ 250 mls @ 125 mls/hr 09/27/18 17:00 Sodium Chloride IV 10/11/18 16:59 Q18H ALEXANDER Discontinued Medications Generic Name Dose Route Start Last Admin Trade Name Freq PRN Reason Stop Dose Admin Methylprednisolone Sodium Succinate 125 mg 09/27/18 13:41 09/27/18 14:00 Solu-Medrol 125mg/2ml Vial IV 09/27/18 13:42 125 mg ONCE ONE Administration Miscellaneous 1 each 09/27/18 14:30 09/27/18 14:28 Vancomycin Consult Request NOTAPPLIC 09/28/18 02:19 1 each CONSULT PHARMACY ALEXANDER Administration ORDERS Category Date Time Status Urinalysis and Microscopic Stat Lab 09/27/18 13:03 Ordered Blood Culture Stat Micro 09/27/18 13:10 Received - Radiology Data #1 Image(s): Chest Image Reviewed: Yes I reviewed the patient's radiology image, Yes I have reviewed radiologist's interpretation IMPRESSION: 1. Possible developing infiltrate right upper lobe with improving left lower lobe atelectasis or infiltrate Dictated By: Camilo Bourgeois MD Signed By: <Electronically signed by Camilo Bourgeois MD in OV> 09/27/18 1403 - ECG Data Tracing #1 EKG interpreted by Dennis Rosas MD: Rhythm: Dual-chamber electronic pacemaker Rate: 87 - Physician Consults Physician Consulted: Shaniqua Time: 15:13 Reason -: Admission Comment/Response: Agrees to admit the patient to the hospital. We discussed the patient's clinical information, including history, exam, laboratory and radiology results and ED course. Per hospital procedure, I will write temporary bridge inpatient orders on the patient. Specific orders requested by the admitting physician: Continue antibiotics, steroids, nebulizer treatments General Adult HPI - General Chief complaint: Altered Mental Status Stated complaint: ams Time Seen by Provider: 09/27/18 13:14 - History of Present Illness HPI narrative: Brought in by ambulance from [facility] for altered mental status. Patient is a poor historian. He denies any complaint. Denies pain, shortness of breath, weakness, nausea, dizziness, illness. - Related Data Home Medications Medication Instructions Recorded Confirmed cholecalciferol (vitamin D3) 50,000 unit PO TU 09/25/17 09/05/18 50,000 unit capsule ranitidine 150 mg tablet 150 mg PO HS 09/25/17 09/05/18 atorvastatin 20 mg tablet 20 mg PO HS tab 11/27/17 09/05/18 tamsulosin 0.4 mg capsule 0.4 mg PO HS 02/14/18 09/05/18 Ondansetron [Zofran 4mg ODT] 4 mg PO Q6HP PRN 03/14/18 09/05/18 Trazodone HCl 25 mg PO HS 03/14/18 09/06/18 Tolterodine Tartrate [Detrol LA] 4 mg PO DAILY 05/22/18 09/05/18 risperiDONE [Risperidone] 0.5 mg PO HS 05/22/18 09/06/18 Warfarin Sodium 4 mg PO DAILY 05/23/18 09/05/18 Cyanocobalamin/Folic Acid [Vitamin 1 each PO DAILY 09/05/18 09/05/18 E19-Ensrg Acid Tablet] Metoprolol Succinate [Toprol XL 25 mg PO DAILY 09/05/18 09/05/18 25mg tablet] Donepezil HCl [Aricept 5mg 5 mg PO HS 09/06/18 09/06/18 Tablet] Sertraline HCl [Zoloft 100mg 100 mg PO DAILY 09/06/18 09/06/18 tablet] Previous Rx's Medication Instructions Recorded Donepezil HCl [Aricept 5mg 5 mg PO HS tab 09/09/18 Tablet] Sertraline HCl [Zoloft 100mg 100 mg PO DAILY tab 09/09/18 tablet] Warfarin Sodium [Coumadin 2mg 2 mg PO COUMADIN tab 09/09/18 tablet] levoFLOXacin [Levaquin 500mg 500 mg PO DAILY #7 tab 09/09/18 tab] Allergies Allergy/AdvReac Type Severity Reaction Status Date / Time No Known Allergies Allergy Verified 07/16/18 11:39 [facility] History - Hepatitis A Screen Attestation statement:: This patient has been screened for Hepatitis A risk factors. I have reviewed the patient's past medical history: Yes Medical History: Reports:: Atherosclerotic Heart Disease, Chronic Obstructive Pulmonary Disease (COPD), Cerebrovascular Accident, Dementia, Hypertension, Internal Pacemaker Denies:: Cancer, Diabetes Mellitus Type 1, Diabetes Mellitus Type 2, MRSA Other Surgeries: Yes: CABG, Pacemaker Amputation: No Comment: Eye surgery, Quad heart bypass - Social History Smoking Status: Never smoker Alcohol Intake: never Alcohol Intake Frequency:: other Substance Use Type: denies use Occupational Status: retired Housing: assisted living facility Family Hx:: Unable to obtain ROS Obtained: Yes All systems reviewed & no additional complaints - Constitutional Constitutional: Denies fever(s) - Cardiovascular Cardiovascular: Denies chest pain - Respiratory Respiratory: No cough, No dyspnea - Gastrointestinal Gastrointestingal: Denies: abdominal pain, diarrhea, vomiting - Neurologic Neurologic: Denies headache(s) Physical Exam - General General appearance: alert, in no apparent distress - Head Head exam: atraumatic, normocephalic - Eye Eye exam: Present: EOMI - ENT ENT exam: Present: mucous membranes dry - Neck Neck exam: Present: normal inspection, trachea midline - Chest Chest inspection: Present: normal inspection, symmetric chest wall rise - Respiratory Respiratory exam: Present: wheezes, other (Rhonchi). Absent: accessory muscle use - Cardiovascular Cardiovascular exam: Present: regular rate, normal rhythm, normal heart sounds - Abdominal Exam Abdominal exam: Present: soft. Absent: distention, tenderness - Extremities Exam Extremities exam: Present: normal inspection - Neurological Exam Neurological exam: Present: alert, other (Oriented to person. States place is "[place]". Does not know year.) - Expanded Neurological Exam Comment: Slack facial muscles bilaterally, no asymmetry noted. Smile is symmetric. Can squint bilaterally. Can hold each arm up against gravity, however cannot hold either leg up against gravity. Wiggles toes bilaterally. - Psychiatric Psychiatric exam: Present: flat affect - Skin Skin exam: Present: warm, dry - Lymphatic Lymphatic Findings: no adenopathy
[2018-09-27 13:24] LABS: Basophils % 0.3 % (0.1-2.0); Eosinophils % 0.3 % (0.1-12.0); Hematocrit 38.2 % (42.0-52.0); Hemoglobin 12.9 g/dL (14.1-18.0); Lymphocytes % 9.3 % (10-50); Mean Corpuscular HGB Conc 33.7 g/dL (31.8-35.4); Mean Corpuscular Hemoglobin 30.8 pg (27.0-31.2); Mean Corpuscular Volume 91.4 fl (80-94); Mean Platelet Volume 7.3 fl (7.4-10.4); Monocytes % 8.8 % (1.7-9.3); Neutrophils % 81.4 % (37.0-80.0); Platelet Count 127 K/mm3 (142-424); Red Blood Count 4.18 M/mm3 (4.60-6.20); Red Cell Distribution Width 13.8 % (11.5-17.5); White Blood Count 11.1 K/mm3 (4.8-10.8)
[2018-09-27 13:37] LABS: ABG Base Excess 0.4 mmol/L (-2.4-2.3); ABG HCO3 23.8 mmhg (22.0-26.0); ABG Oxygen Saturation 97 % (90-100); ABG PH 7.49 mmol/L (7.35-7.45); ABG PO2 85.1 mmhg (80-100); ABG TCO2 24.8 mmhg (23-27)
[2018-09-27 13:38] LABS: Allen's Test Acceptable; Oxygen ROOM AIR %
[2018-09-27 13:38] LABS: Albumin Level 3.1 gm/dL (3.4-5.0); Albumin/Globulin Ratio 0.9 (1.1-1.8); Anion Gap 10.1 mEq/L (5-15); Calcium 8.7 mg/dL (8.5-10.1); Globulin 3.3 gm/dl (1.3-3.2); Potassium 4.1 mmoL/L (3.5-5.1); Total Protein,Serum 6.4 gm/dL (6.4-8.2)
[2018-09-27 13:41] LABS: INR 1.62 (0.9-1.1); Prothrombin Time 16.5 seconds (9.4-11.8)
--- NOTE | 2018-09-27 14:42 | Pharmacy Consult Notes ---
- Pharmacy Consult Date: 09/27/18 Time: 14:38 Referring provider: DR. MARTINO Reason for Consult:: VANCOMYCIN DOSING Allergies and ADEs:: Allergies Allergy/AdvReac Type Severity Reaction Status Date / Time No Known Allergies Allergy Verified 07/16/18 11:39 Home Medications:: Home Medications Medication Instructions Recorded Confirmed Type cholecalciferol (vitamin D3) 50,000 unit PO TU 09/25/17 09/05/18 History 50,000 unit capsule ranitidine 150 mg tablet 150 mg PO HS 09/25/17 09/05/18 History atorvastatin 20 mg tablet 20 mg PO HS tab 11/27/17 09/05/18 History tamsulosin 0.4 mg capsule 0.4 mg PO HS 02/14/18 09/05/18 History Ondansetron [Zofran 4mg ODT] 4 mg PO Q6HP PRN 03/14/18 09/05/18 History Trazodone HCl 25 mg PO HS 03/14/18 09/06/18 History Tolterodine Tartrate [Detrol LA] 4 mg PO DAILY 05/22/18 09/05/18 History risperiDONE [Risperidone] 0.5 mg PO HS 05/22/18 09/06/18 History Warfarin Sodium 4 mg PO DAILY 05/23/18 09/05/18 History Cyanocobalamin/Folic Acid [Vitamin 1 each PO DAILY 09/05/18 09/05/18 History E75-Eooma Acid Tablet] Metoprolol Succinate [Toprol XL 25 mg PO DAILY 09/05/18 09/05/18 History 25mg tablet] Donepezil HCl [Aricept 5mg 5 mg PO HS 09/06/18 09/06/18 History Tablet] Sertraline HCl [Zoloft 100mg 100 mg PO DAILY 09/06/18 09/06/18 History tablet] Donepezil HCl [Aricept 5mg 5 mg PO HS tab 09/09/18 Rx Tablet] Sertraline HCl [Zoloft 100mg 100 mg PO DAILY tab 09/09/18 Rx tablet] Warfarin Sodium [Coumadin 2mg 2 mg PO COUMADIN tab 09/09/18 Rx tablet] levoFLOXacin [Levaquin 500mg 500 mg PO DAILY #7 tab 09/09/18 Rx tab] Height: 1.75 m Weight: 98.883 kg Laboratory Results:: Laboratory Results - last 24 hr 09/27/18 13:10: WBC 11.1 H, RBC 4.18 L, Hgb 12.9 L, Hct 38.2 L, MCV 91.4, MCH 30.8, MCHC 33.7, RDW 13.8, Plt Count 127 L, MPV 7.3 L, Neut % (Auto) 81.4 H, Lymph % (Auto) 9.3 L, [place] % (Auto) 8.8, Eos % (Auto) 0.3, Baso % (Auto) 0.3, Neut # (Auto) 9.0 H, Lymph # (Auto) 1.0, [place] # (Auto) 1.0, Eos # (Auto) 0.0, Baso # (Auto) 0.0 09/27/18 13:10: Sodium 131 L, Potassium 4.1, Chloride 96 L, Carbon Dioxide 29, Anion Gap 10.1, BUN 11, Creatinine 1.09, Estimated Creat Clear 79, Estimated GFR 66, Est GFR ( Amer) 79, Glucose 108 H, Calcium 8.7, Total Bilirubin 1.0, AST 17, ALT 26, Alkaline Phosphatase 136 H, Total Protein 6.4, Albumin 3.1 L, Globulin 3.3 H, Albumin/Globulin Ratio 0.9 L 09/27/18 13:10: Lactate 0.8 09/27/18 13:10: PT 16.5 H, INR 1.62 H 09/27/18 13:14: Specimen Source Left radial, O2 % Room air, ABG pH 7.49 H, ABG pCO2 32.0 L, ABG pO2 85.1, ABG HCO3 23.8, ABG Total CO2 24.8, ABG O2 Saturation 97, ABG Base Excess 0.4, Camilo Test Acceptable Medical History: Reports:: Atherosclerotic Heart Disease, Chronic Obstructive Pulmonary Disease (COPD), Cerebrovascular Accident, Dementia, Hypertension, Internal Pacemaker Denies:: Cancer, Diabetes Mellitus Type 1, Diabetes Mellitus Type 2, MRSA Assessment and Plan - Assessment and plan all Dx Assessment and Plan for all problems:: BASED ON PATIENT FACTORS, RECOMMEND VANCOMYCIN 1750 MG IV Q18H. WILL OBTAIN VANCOMYCIN TROUGH LEVEL PRIOR TO 4TH DOSE. PHARMACY WILL FOLLOW DAILY AND ADJUST APPROPRIATE.
--- NOTE | 2018-09-27 21:01 | History & Physical Report ---
*Admission Date: 09/27/18 *Chief complaint: change mental status *History of present illness: this wm was [facility] from [facility] for eval of change mental status - pt has known dysphagia from abn swallowing eval in aug- he was unable to give hx - pt was seen in the ed Brought in by ambulance from [facility] for altered mental status. Patient is a poor historian. He denies any complaint. Denies pain, shortness of breath, weakness, nausea, dizziness, illness. [facility] History I have reviewed the patient's past medical history: Yes Medical History: Reports:: Atherosclerotic Heart Disease, Chronic Obstructive Pulmonary Disease (COPD), Coronary Artery Disease, Cerebrovascular Accident, Dementia, Hyperlipidemia, Hypertension, Internal Pacemaker Denies:: Cancer, Diabetes Mellitus Type 1, Diabetes Mellitus Type 2, MRSA Have you ever received a pneumonia vaccine?: Yes ([place]) Have you received a flu vaccine this season?: Yes ([place]) Other Surgeries: Yes: CABG, Pacemaker, Other (Eye surgery) Amputation: No - *Social History Educational Level: Completed High School Smoking Status: Never smoker Alcohol Intake: never Alcohol Intake Frequency:: other Substance Use Type: denies use Occupational Status: retired Housing: halfway Travel in the last 8 weeks: None - Psychiatric History Expresses thoughts of harming self/others: None Suicide Plan Description: No Plan Family Hx:: Unable to obtain Review of Systems - Review of Systems Review of systems:: pertinent systems reviewed and negative unless documented below - Constitutional Reports malaise, Reports weakness - Eyes Denies change in vision - ENT Denies sore throat - *Cardiovascular Denies chest pain at rest - *Respiratory Reports chest congestion, Reports cough, Reports shortness of breath, Denies coughing up blood - *Gastrointestinal Denies abdominal pain - *Genitourinary Denies blood in urine - *Musculoskeletal Denies joint pain - Integumentary/Breasts Denies rash - *Neurologic Denies headache(s) - Psychiatric Denies anxiety Meds Home Medications Medication Instructions Recorded Confirmed Type cholecalciferol (vitamin D3) 50,000 unit PO TU 09/25/17 09/27/18 History 50,000 unit capsule ranitidine 150 mg tablet 150 mg PO HS 09/25/17 09/27/18 History atorvastatin 20 mg tablet 20 mg PO HS tab 11/27/17 09/27/18 History tamsulosin 0.4 mg capsule 0.4 mg PO HS 02/14/18 09/27/18 History Ondansetron [Zofran 4mg ODT] 4 mg PO Q6HP PRN 03/14/18 09/27/18 History Trazodone HCl 25 mg PO HS 03/14/18 09/27/18 History Tolterodine Tartrate [Detrol LA] 4 mg PO DAILY 05/22/18 09/27/18 History risperiDONE [Risperidone] 0.5 mg PO HS 05/22/18 09/27/18 History Cyanocobalamin/Folic Acid [Vitamin 1 each PO DAILY 09/05/18 09/27/18 History W91-Hknli Acid Tablet] Metoprolol Succinate [Toprol XL 25 mg PO DAILY 09/05/18 09/27/18 History 25mg tablet] Donepezil HCl [Aricept 5mg 5 mg PO HS 09/27/18 09/27/18 History Tablet] Sertraline HCl [Zoloft 100mg 100 mg PO DAILY 09/27/18 09/27/18 History tablet] Warfarin Sodium 3 mg PO DAILY 09/27/18 09/27/18 History Allergies Allergy/AdvReac Type Severity Reaction Status Date / Time No Known Allergies Allergy Verified 09/27/18 17:38 Exam Vital signs and Labs for Last 24 Hours: Temp Pulse Resp BP Pulse Ox 98.4 F 70 18 139/69 89 L 09/27/18 20:30 09/27/18 20:30 09/27/18 20:30 09/27/18 20:30 09/27/18 20:30 Laboratory Results - last 24 hr 09/27/18 13:10: WBC 11.1 H, RBC 4.18 L, Hgb 12.9 L, Hct 38.2 L, MCV 91.4, MCH 30.8, MCHC 33.7, RDW 13.8, Plt Count 127 L, MPV 7.3 L, Neut % (Auto) 81.4 H, Lymph % (Auto) 9.3 L, [place] % (Auto) 8.8, Eos % (Auto) 0.3, Baso % (Auto) 0.3, Neut # (Auto) 9.0 H, Lymph # (Auto) 1.0, [place] # (Auto) 1.0, Eos # (Auto) 0.0, Baso # (Auto) 0.0 09/27/18 13:10: Sodium 131 L, Potassium 4.1, Chloride 96 L, Carbon Dioxide 29, Anion Gap 10.1, BUN 11, Creatinine 1.09, Estimated Creat Clear 79, Estimated GFR 66, Est GFR ( Amer) 79, Glucose 108 H, Calcium 8.7, Total Bilirubin 1.0, AST 17, ALT 26, Alkaline Phosphatase 136 H, Total Protein 6.4, Albumin 3.1 L, Globulin 3.3 H, Albumin/Globulin Ratio 0.9 L 09/27/18 13:10: Lactate 0.8 09/27/18 13:10: PT 16.5 H, INR 1.62 H 09/27/18 13:14: Specimen Source Left radial, O2 % Room air, ABG pH 7.49 H, ABG pCO2 32.0 L, ABG pO2 85.1, ABG HCO3 23.8, ABG Total CO2 24.8, ABG O2 Saturation 97, ABG Base Excess 0.4, Camilo Test Acceptable I & O for Last 24 hours: Intake & Output 09/25/18 09/26/18 09/27/18 09/28/18 11:59 11:59 11:59 11:59 Intake Total 1490 / 1490 Balance 1490 / 1490 Weight 205 lb 8 oz Microbiology Reports for the Last 24 Hours: Microbiology 09/27/18 17:00 Sputum - Expectorated Sputum Gram Stain - Final - Constitutional no acute distress, somnolent - *Routine HEENT Exam Head: Present: normocephalic Eye: Present: EOMI, PERRL ENT: Present: mucous membranes dry - *Routine Neck Exam Absent: JVD - *Routine Respiratory Exam Present: decreased breath sounds, rhonchi, wheezes, distant breath sounds - *Routine Cardiovascular Exam Present: RRR, murmur, S4 - *Routine Abdominal Exam Present: soft - *Routine Extremities Exam Absent: calf tenderness - *Routine Skin Exam Present: intact - *Routine Neurological Exam Present: CN II-XII intact, altered mental status. Absent: motor deficit, normal reflexes - Routine Psychiatric Exam Present: unable to assess Assessment and Plan (1) Dysphagia Current visit: Yes Status: Acute Category: Medical Code(s): R13.10 - Dysphagia, unspecified (2) Altered mental status Current visit: Yes Status: Acute Qualifiers: Altered mental status type: disorientation Qualified Code(s): R41.0 - Disorientation, unspecified Category: Medical Code(s): R41.82 - Altered mental status, unspecified (3) COPD exacerbation Current visit: Yes Status: Acute Category: Medical Code(s): J44.1 - Chronic obstructive pulmonary disease with (acute) exacerbation (4) Healthcare-associated pneumonia Current visit: Yes Status: Acute Category: Medical Code(s): J18.9 - Pneumonia, unspecified organism (5) Chronic a-fib Current visit: No Status: Acute Category: Medical Code(s): I48.2 - Chronic atrial fibrillation (6) Overweight (BMI 25.0-29.9) Current visit: Yes Status: Acute Category: Medical Code(s): E66.3 - Overweight (7) Acquired thrombocytopenia Current visit: Yes Status: Acute Category: Medical Code(s): D69.6 - T hrombocytopenia, unspecified (8) Hyponatremia Current visit: Yes Status: Acute Category: Medical Code(s): E87.1 - Hypo- osmolality and hyponatremia
[2018-09-27 21:13] LABS: ABG HCO3 24.3 mmhg (22.0-26.0); ABG Oxygen Saturation 95 % (90-100); ABG PCO2 37.3 mmhg (35.0-45.0); ABG PH 7.43 mmol/L (7.35-7.45); ABG PO2 69.3 mmhg (80-100); ABG TCO2 25.5 mmhg (23-27)
[2018-09-27 21:14] LABS: Allen's Test Patient Unable
--- NOTE | 2018-09-28 09:55 | Progress Note ---
Internal Medicine - PN: Subj *Date: 09/28/18 *Time: 09:53 Interval history: pt more alert today - on his dysphagia diet - may require peg tube Exam Vital signs and Labs for Last 24 Hours: Temp Pulse Resp BP Pulse Ox 98.9 F 109 H 21 105/64 L 90 L 09/28/18 08:00 09/28/18 08:00 09/28/18 08:00 09/28/18 08:00 09/28/18 08:00 Laboratory Results - last 24 hr 09/27/18 13:10: WBC 11.1 H, RBC 4.18 L, Hgb 12.9 L, Hct 38.2 L, MCV 91.4, MCH 30.8, MCHC 33.7, RDW 13.8, Plt Count 127 L, MPV 7.3 L, Neut % (Auto) 81.4 H, Lymph % (Auto) 9.3 L, [place] % (Auto) 8.8, Eos % (Auto) 0.3, Baso % (Auto) 0.3, Neut # (Auto) 9.0 H, Lymph # (Auto) 1.0, [place] # (Auto) 1.0, Eos # (Auto) 0.0, Baso # (Auto) 0.0 09/27/18 13:10: Sodium 131 L, Potassium 4.1, Chloride 96 L, Carbon Dioxide 29, Anion Gap 10.1, BUN 11, Creatinine 1.09, Estimated Creat Clear 79, Estimated GFR 66, Est GFR ( Amer) 79, Glucose 108 H, Calcium 8.7, Total Bilirubin 1.0, AST 17, ALT 26, Alkaline Phosphatase 136 H, Total Protein 6.4, Albumin 3.1 L, Globulin 3.3 H, Albumin/Globulin Ratio 0.9 L 09/27/18 13:10: Lactate 0.8 09/27/18 13:10: PT 16.5 H, INR 1.62 H 09/27/18 13:10: Troponin I 0.03 09/27/18 13:14: Specimen Source Left radial, O2 % Room air, ABG pH 7.49 H, ABG pCO2 32.0 L, ABG pO2 85.1, ABG HCO3 23.8, ABG Total CO2 24.8, ABG O2 Saturation 97, ABG Base Excess 0.4, Camilo Test Acceptable 09/27/18 20:57: POC Glucose 147 H 09/27/18 21:11: O2 % 28% nc, ABG pH 7.43, ABG pCO2 37.3, ABG pO2 69.3 L, ABG HCO3 24.3, ABG Total CO2 25.5, ABG O2 Saturation 95, ABG Base Excess 0.0, Camilo Test Patient unable 09/27/18 22:20: Troponin I < 0.02 I & O for Last 24 hours: Intake & Output 09/25/18 09/26/18 09/27/18 09/28/18 11:59 11:59 11:59 11:59 Intake Total 1490 / 1490 Output Total 240 / 240 Balance 1250 / 1250 Weight 205 lb 8 oz Microbiology Reports for the Last 24 Hours: Microbiology 09/27/18 17:00 Sputum - Expectorated Sputum Gram Stain - Final 09/27/18 17:00 Sputum - Expectorated Sputum Sputum Culture - Preliminary - Constitutional no acute distress - *Routine HEENT Exam Head: Present: normocephalic Eye: Present: EOMI, PERRL ENT: Present: mucous membranes dry - *Routine Neck Exam Present: supple. Absent: JVD - *Routine Respiratory Exam Present: decreased breath sounds, wheezes, distant breath sounds. Absent: respiratory distress - *Routine Cardiovascular Exam Present: RRR, murmur, S4 - *Routine Abdominal Exam Present: soft - *Routine Extremities Exam Absent: calf tenderness - *Routine Skin Exam Present: intact - *Routine Neurological Exam Present: alert, CN II-XII intact - Routine Psychiatric Exam Present: normal affect Assessment and Plan (1) Dysphagia Current visit: Yes Status: Acute Category: Medical Code(s): R13.10 - Dysphagia, unspecified (2) Altered mental status Current visit: Yes Status: Acute Qualifiers: Altered mental status type: disorientation Qualified Code(s): R41.0 - Disorientation, unspecified Category: Medical Code(s): R41.82 - Altered mental status, unspecified (3) COPD exacerbation Current visit: Yes Status: Acute Category: Medical Code(s): J44.1 - Chronic obstructive pulmonary disease with (acute) exacerbation (4) Healthcare-associated pneumonia Current visit: Yes Status: Acute Category: Medical Code(s): J18.9 - Pneumonia, unspecified organism (5) Chronic a-fib Current visit: No Status: Acute Category: Medical Code(s): I48.2 - Chronic atrial fibrillation (6) Overweight (BMI 25.0-29.9) Current visit: Yes Status: Acute Category: Medical Code(s): E66.3 - Overweight (7) Acquired thrombocytopenia Current visit: Yes Status: Acute Category: Medical Code(s): D69.6 - Thrombocytopenia, unspecified (8) Hyponatremia Current visit: Yes Status: Acute Category: Medical Code(s): E87.1 - Hypo- osmolality and hyponatremia
[2018-09-28 11:09] LABS: Basophils % 0.1 % (0.1-2.0); Eosinophils # 0.1 K/mm3 (0.0-0.4); Eosinophils % 0.4 % (0.1-12.0); Hematocrit 37.9 % (42.0-52.0); Hemoglobin 12.7 g/dL (14.1-18.0); Lymphocytes # 0.5 K/mm3 (0.7-4.5); Lymphocytes % 4.5 % (10-50); Mean Corpuscular HGB Conc 33.6 g/dL (31.8-35.4); Mean Corpuscular Hemoglobin 30.4 pg (27.0-31.2); Mean Corpuscular Volume 90.5 fl (80-94); Mean Platelet Volume 7.2 fl (7.4-10.4); Monocytes # 0.4 K/mm3 (0.1-1.0); Monocytes % 3.3 % (1.7-9.3); Neutrophils # 10.9 K/mm3 (1.8-7.8); Neutrophils % 91.7 % (37.0-80.0); Platelet Count 154 K/mm3 (142-424); Red Blood Count 4.18 M/mm3 (4.60-6.20); Red Cell Distribution Width 13.8 % (11.5-17.5); White Blood Count 11.9 K/mm3 (4.8-10.8)
[2018-09-28 11:19] LABS: Anion Gap 16.3 mEq/L (5-15); Potassium 3.3 mmoL/L (3.5-5.1)
--- NOTE | 2018-09-28 11:24 | Pharmacy Consult Notes ---
[facility] Pharmacy VTE Monitoring - Patient Demographics Admission date: 09/27/18 Report Date: 09/28/18 Time: 11:24 Allergies/Adverse Reactions: Patient Allergies No Known Allergies Allergy (Verified 09/27/18 17:38) Height: 1.83 m Weight: 93.213 kg Patient Problems: Current Active Problems Altered mental status (Acute) Healthcare-associated pneumonia (Acute) COPD exacerbation (Acute) Dysphagia (Acute) Overweight (BMI 25.0-29.9) (Acute) Acquired thrombocytopenia (Acute) Hyponatremia (Acute) - VTE Risk Labs: VTE Related Lab Results Hgb 12.7 g/dL (14.1-18.0) L 09/28/18 10:28 Hct 37.9 % (42.0-52.0) L 09/28/18 10:28 Plt Count 154 K/mm3 (142-424) 09/28/18 10:28 PT 16.5 seconds (9.4-11.8) H 09/27/18 13:10 INR 1.62 (0.9-1.1) H 09/27/18 13:10 BUN 11 mg/dL (7-18) 09/27/18 13:10 Creatinine 1.09 mg/dL (0.70-1.30) 09/27/18 13:10 Estimated Creat Clear 79 mL/min (50-200) 09/27/18 13:10 Was VTE Risk Assessment Performed: Yes VTE Score: 5 VTE Risk Level: Low Risk - Prophylaxis VTE Prophylaxis Ordered?: Yes Types of VTE Prophylaxis: TEDS Knee High, Pharmacological Location of Applied Device: Bilateral Lower Extremeties Pharmacologic Type: Warfarin
--- NOTE | 2018-09-28 12:09 | Pharmacy Consult Notes ---
- Pharmacy Consult Date: 09/28/18 Time: 12:07 Referring provider: DR. FERGUSON Reason for Consult:: VANCOMYCIN DOSING Allergies and ADEs:: Allergies Allergy/AdvReac Type Severity Reaction Status Date / Time No Known Allergies Allergy Verified 09/27/18 17:38 Home Medications:: Home Medications Medication Instructions Recorded Confirmed Type cholecalciferol (vitamin D3) 50,000 unit PO TU 09/25/17 09/27/18 History 50,000 unit capsule ranitidine 150 mg tablet 150 mg PO HS 09/25/17 09/27/18 History atorvastatin 20 mg tablet 20 mg PO HS tab 11/27/17 09/27/18 History tamsulosin 0.4 mg capsule 0.4 mg PO HS 02/14/18 09/27/18 History Ondansetron [Zofran 4mg ODT] 4 mg PO Q6HP PRN 03/14/18 09/27/18 History Trazodone HCl 25 mg PO HS 03/14/18 09/27/18 History Tolterodine Tartrate [Detrol LA] 4 mg PO DAILY 05/22/18 09/27/18 History risperiDONE [Risperidone] 0.5 mg PO HS 05/22/18 09/27/18 History Cyanocobalamin/Folic Acid [Vitamin 1 each PO DAILY 09/05/18 09/27/18 History [id number] Acid Tablet] Metoprolol Succinate [Toprol XL 25 mg PO DAILY 09/05/18 09/27/18 History 25mg tablet] Donepezil HCl [Aricept 5mg 5 mg PO HS 09/27/18 09/27/18 History Tablet] Sertraline HCl [Zoloft 100mg 100 mg PO DAILY 09/27/18 09/27/18 History tablet] Warfarin Sodium 3 mg PO DAILY 09/27/18 09/27/18 History Height: 1.83 m Weight: 93.213 kg Laboratory Results:: Laboratory Results - last 24 hr 09/27/18 13:10: WBC 11.1 H, RBC 4.18 L, Hgb 12.9 L, Hct 38.2 L, MCV 91.4, MCH 30.8, MCHC 33.7, RDW 13.8, Plt Count 127 L, MPV 7.3 L, Neut % (Auto) 81.4 H, Lymph % (Auto) 9.3 L, [place] % (Auto) 8.8, Eos % (Auto) 0.3, Baso % (Auto) 0.3, Neut # (Auto) 9.0 H, Lymph # (Auto) 1.0, [place] # (Auto) 1.0, Eos # (Auto) 0.0, Baso # (Auto) 0.0 09/27/18 13:10: Sodium 131 L, Potassium 4.1, Chloride 96 L, Carbon Dioxide 29, Anion Gap 10.1, BUN 11, Creatinine 1.09, Estimated Creat Clear 79, Estimated GFR 66, Est GFR ( Amer) 79, Glucose 108 H, Calcium 8.7, Total Bilirubin 1.0, AST 17, ALT 26, Alkaline Phosphatase 136 H, Total Protein 6.4, Albumin 3.1 L, Globulin 3.3 H, Albumin/Globulin Ratio 0.9 L 09/27/18 13:10: Lactate 0.8 09/27/18 13:10: PT 16.5 H, INR 1.62 H 09/27/18 13:10: Troponin I 0.03 09/27/18 13:14: Specimen Source Left radial, O2 % Room air, ABG pH 7.49 H, ABG pCO2 32.0 L, ABG pO2 85.1, ABG HCO3 23.8, ABG Total CO2 24.8, ABG O2 Saturation 97, ABG Base Excess 0.4, Camilo Test Acceptable 09/27/18 20:57: POC Glucose 147 H 09/27/18 21:11: O2 % 28% nc, ABG pH 7.43, ABG pCO2 37.3, ABG pO2 69.3 L, ABG HCO3 24.3, ABG Total CO2 25.5, ABG O2 Saturation 95, ABG Base Excess 0.0, Camilo Test Patient unable 09/27/18 22:20: Troponin I < 0.02 09/28/18 10:28: WBC 11.9 H, RBC 4.18 L, Hgb 12.7 L, Hct 37.9 L, MCV 90.5, MCH 30.4, MCHC 33.6, RDW 13.8, Plt Count 154, MPV 7.2 L, Neut % (Auto) 91.7 H, Lymph % (Auto) 4.5 L, [place] % (Auto) 3.3, Eos % (Auto) 0.4, Baso % (Auto) 0.1, Neut # (Auto) 10.9 H, Lymph # (Auto) 0.5 L, [place] # (Auto) 0.4, Eos # (Auto) 0.1, Baso # (Auto) 0.0 09/28/18 10:28: Sodium 132 L, Potassium 3.3 L, Chloride 98, Carbon Dioxide 21 D , Anion Gap 16.3 H, BUN 20 H D, Creatinine 1.41 H D, Estimated Creat Clear 58, Estimated GFR 49 L, Est GFR ( Amer) 59 D, Glucose 227 H D, Calcium 9.0 Medical History: Reports:: Atherosclerotic Heart Disease, Chronic Obstructive Pulmonary Disease (COPD), Coronary Artery Disease, Cerebrovascular Accident, Dementia, Hyperlipidemia, Hypertension, Internal Pacemaker Denies:: Cancer, Diabetes Mellitus Type 1, Diabetes Mellitus Type 2, MRSA Assessment and Plan (1) Dysphagia Current visit: Yes Status: Acute Category: Medical Code(s): R13.10 - Dysphagia, unspecified (2) Altered mental status Current visit: Yes Status: Acute Qualifiers: Altered mental status type: disorientation Qualified Code(s): R41.0 - D isorientation, unspecified Category: Medical Code(s): R41.82 - Altered mental status, unspecified (3) COPD exacerbation Current visit: Yes Status: Acute Category: Medical Code(s): J44.1 - Chronic obstructive pulmonary disease with (acute) exacerbation (4) Healthcare-associated pneumonia Current visit: Yes Status: Acute Category: Medical Code(s): J18.9 - Pneumonia, unspecified organism (5) Chronic a-fib Current visit: No Status: Acute Category: Medical Code(s): I48.2 - Chronic atrial fibrillation (6) Overweight (BMI 25.0-29.9) Current visit: Yes Status: Acute Category: Medical Code(s): E66.3 - Overweight (7) Acquired thrombocytopenia Current visit: Yes Status: Acute Category: Medical Code(s): D69.6 - Thrombocytopenia, unspecified (8) Hyponatremia Current visit: Yes Status: Acute Category: Medical Code(s): E87.1 - Hypo- osmolality and hyponatremia - Assessment and plan all Dx Assessment and Plan for all problems:: BASED ON PATIENT FACTORS, RECOMMEND VANCOMYCIN 1750 MG IV ONCE, FOLLOWED BY VANCOMYCIN 1500 MG IV Q18H. WILL OBTAIN VANCOMYCIN TROUGH LEVEL PRIOR TO 4TH DOSE. PHARMACY WILL FOLLOW DAILY AND ADJUST APPROPRIATE.
[2018-09-28 15:20] LABS: Lymphocytes % 3 % (10-50); Monocytes % 5 % (2-9); Neutrophils % 91 % (42-76); RBC Morphology Normal; Total Cells Counted 100
[2018-09-29 06:41] LABS: INR 3.78 (0.9-1.1); Prothrombin Time 37.5 seconds (9.4-11.8)
--- NOTE | 2018-09-29 13:13 | Progress Note ---
Internal Medicine - PN: Subj *Date: 09/29/18 *Time: 13:11 Interval history: doing better - still with cough Exam Vital signs and Labs for Last 24 Hours: Temp Pulse Resp BP Pulse Ox 98.4 F 90 21 130/74 97 09/29/18 11:53 09/29/18 11:53 09/29/18 11:53 09/29/18 11:53 09/29/18 09:51 Laboratory Results - last 24 hr 09/28/18 10:28: Total Counted 100, Neutrophils % (Manual) 91 H, Band Neutrophils % 1.0, Lymphocytes % (Manual) 3 L, Monocytes % (Manual) 5, Platelet Estimate Normal, RBC Morphology Normal 09/29/18 06:12: PT 37.5 H, INR 3.78 H I & O for Last 24 hours: Intake & Output 09/27/18 09/28/18 09/29/18 09/30/18 11:59 11:59 11:59 11:59 Intake Total 1490 / 1490 750 / 750 Output Total 240 / 240 Balance 1250 / 1250 750 / 750 Weight 205 lb 8 oz 205 lb 8 oz Microbiology Reports for the Last 24 Hours: Microbiology 09/27/18 17:00 Sputum - Expectorated Sputum Gram Stain - Final 09/27/18 17:00 Sputum - Expectorated Sputum Sputum Culture - Final Normal Respiratory Lety - Constitutional no acute distress - *Routine HEENT Exam Head: Present: normocephalic Eye: Present: EOMI, PERRL ENT: Present: mucous membranes dry - *Routine Neck Exam Present: supple - *Routine Respiratory Exam Present: rhonchi - *Routine Cardiovascular Exam Present: RRR, murmur - *Routine Abdominal Exam Present: soft - *Routine Extremities Exam Absent: calf tenderness - *Routine Skin Exam Present: intact - *Routine Neurological Exam Present: alert, CN II-XII intact - Routine Psychiatric Exam Present: normal affect Assessment and Plan (1) Dysphagia Current visit: Yes Status: Acute Category: Medical Code(s): R13.10 - Dysphagia, unspecified (2) Altered mental status Current visit: Yes Status: Acute Qualifiers: Altered mental status type: disorientation Qualified Code(s): R41.0 - Disorientation, unspecified Category: Medical Code(s): R41.82 - Altered mental status, unspecified (3) COPD exacerbation Current visit: Yes Status: Acute Category: Medical Code(s): J44.1 - Chronic obstructive pulmonary disease with (acute) exacerbation (4) Healthcare-associated pneumonia Current visit: Yes Status: Acute Category: Medical Code(s): J18.9 - Pneumonia, unspecified organism (5) Chronic a-fib Current visit: No Status: Acute Category: Medical Code(s): I48.2 - Chronic atrial fibrillation (6) Overweight (BMI 25.0-29.9) Current visit: Yes Status: Acute Category: Medical Code(s): E66.3 - Overweight (7) Acquired thrombocytopenia Current visit: Yes Status: Acute Category: Medical Code(s): D69.6 - Throm bocytopenia, unspecified (8) Hyponatremia Current visit: Yes Status: Acute Category: Medical Code(s): E87.1 - Hypo- osmolality and hyponatremia
--- NOTE | 2018-09-30 11:28 | Pharmacy Consult Notes ---
- Pharmacy Consult Date: 09/30/18 Time: 11:24 Referring provider: DR. FERGUSON Reason for Consult:: VANCOMYCIN TROUGH LEVEL Allergies and ADEs:: Allergies Allergy/AdvReac Type Severity Reaction Status Date / Time No Known Allergies Allergy Verified 09/27/18 17:38 Home Medications:: Home Medications Medication Instructions Recorded Confirmed Type cholecalciferol (vitamin D3) 50,000 unit PO TU 09/25/17 09/27/18 History 50,000 unit capsule ranitidine 150 mg tablet 150 mg PO HS 09/25/17 09/27/18 History atorvastatin 20 mg tablet 20 mg PO HS tab 11/27/17 09/27/18 History tamsulosin 0.4 mg capsule 0.4 mg PO HS 02/14/18 09/27/18 History Ondansetron [Zofran 4mg ODT] 4 mg PO Q6HP PRN 03/14/18 09/27/18 History Trazodone HCl 25 mg PO HS 03/14/18 09/27/18 History Tolterodine Tartrate [Detrol LA] 4 mg PO HS 05/22/18 09/28/18 History risperiDONE [Risperidone] 0.5 mg PO DAILY 05/22/18 09/28/18 History Metoprolol Succinate [Toprol XL 25 mg PO DAILY 09/05/18 09/27/18 History 25mg tablet] Donepezil HCl [Aricept 5mg 5 mg PO HS 09/27/18 09/27/18 History Tablet] Sertraline HCl [Zoloft 100mg 100 mg PO DAILY 09/27/18 09/27/18 History tablet] Warfarin Sodium 3 mg PO DAILY 09/27/18 09/27/18 History Acetaminophen [Tylenol 500mg 500 mg PO Q4HP PRN 09/28/18 09/28/18 History tablet] Folic Acid/Vit B Complex and C 0.8 mg PO DAILY 09/28/18 09/28/18 History [Evie-Constantin Tablet] Height: 1.83 m Weight: 93.213 kg Laboratory Results:: Laboratory Results - last 24 hr 09/29/18 11:35: Stl Aeromonas (PCR) Not detected, Stl C. cayetanensis PCR Not detected, Stool Rotavirus (PCR) Not detected, Stl Adenov F 40/41 PCR Not detected, Stool Astrovirus (PCR) Not detected, Stool Campylobacter PCR Not detected, Stl C.difficile Tox PCR Not detected, Stool Cryptosporidium PCR Not detected, Stl E.coli Shiga Tox PCR Not detected, Stool E coli O157 PCR Not detected, Stl Enterotoxigenic E PCR Not detected, Stool EPEC (PCR) Not detected, Stool EAEC (PCR) Not detected, Stl E. histolytica PCR Not detected, Stool Giardia Lamblia PCR Not detected, Stool Salmonella PCR Not detected, Stool Sapovirus (PCR) Not detected, Stl P. shigelloides PCR Not detected, Stl Shigella/EIEC PCR Not detected, St Y.enterocolitica PCR Not detected, Stool Vibrio (PCR) Not detected, Stl Vibrio cholerae PCR Not detected, Stl Norovirus GI/GII PCR Not detected 09/29/18 22:33: Vancomycin Trough 12.7 Medical History: Reports:: Atherosclerotic Heart Disease, Chronic Obstructive Pulmonary Disease (COPD), Coronary Artery Disease, Cerebrovascular Accident, Dementia, Hyperlipidemia, Hypertension, Internal Pacemaker Denies:: Cancer, Diabetes Mellitus Type 1, Diabetes Mellitus Type 2, MRSA Assessment and Plan (1) Dysphagia Current visit: Yes Status: Acute Category: Medical Code(s): R13.10 - Dysphagia, unspecified (2) Altered mental status Current visit: Yes Status: Acute Qualifiers: Altered mental status type: disorientation Qualified Code(s): R41.0 - Disorientation, unspecified Category: Medical Code(s): R41.82 - Altered mental status, unspecified (3) COPD exacerbation Current visit: Yes Status: Acute Category: Medical Code(s): J44.1 - Chronic obstructive pulmonary disease with (acute) exacerbation (4) Healthcare-associated pneumonia Current visit: Yes Status: Acute Category: Medical Code(s): J18.9 - Pneumonia, unspecified organism (5) Chronic a-fib Current visit: No Status: Acute Category: Medical Code(s): I48.2 - Chronic atrial fibrillation (6) Overweight (BMI 25.0-29.9) Current visit: Yes Status: Acute Category: Medical Code(s): E66.3 - Overweight (7) Acquired thrombocytopenia Current visit: Yes Status: Acute Category: Medical Code(s): D69.6 - Thrombocytopenia, unspecified (8) Hyponatremia Current visit: Yes Status: Acute Category: Medical Code(s): E87.1 - Hypo-o smolality and hyponatremia - Assessment and plan all Dx Assessment and Plan for all problems:: BASED ON VANCOMYCIN TROUGH LEVEL AND PATIENT FACTORS, RECOMMEND CONTINUING VANCOMYCIN 1500 MG IV Q18H. PHARMACY WILL CONTINUE TO MONITOR DAILY AND ADJUST APPROPRIATE.
[2018-09-30 16:43] LABS: Anion Gap 17.2 mEq/L (5-15); Calcium 8.3 mg/dL (8.5-10.1); Potassium 3.2 mmoL/L (3.5-5.1)
[2018-09-30 16:44] LABS: Basophils % 0.2 % (0.1-2.0); Eosinophils % 0.1 % (0.1-12.0); Hematocrit 33.6 % (42.0-52.0); Hemoglobin 11.2 g/dL (14.1-18.0); Lymphocytes # 0.5 K/mm3 (0.7-4.5); Lymphocytes % 4.1 % (10-50); Mean Corpuscular HGB Conc 33.4 g/dL (31.8-35.4); Mean Corpuscular Volume 89.9 fl (80-94); Monocytes # 0.7 K/mm3 (0.1-1.0); Monocytes % 5.6 % (1.7-9.3); Neutrophils # 10.6 K/mm3 (1.8-7.8); Neutrophils % 90.1 % (37.0-80.0); Platelet Count 170 K/mm3 (142-424); Red Blood Count 3.74 M/mm3 (4.60-6.20); White Blood Count 11.7 K/mm3 (4.8-10.8)
[2018-09-30 16:48] LABS: INR 4.75 (0.9-1.1); Prothrombin Time 46.8 seconds (9.4-11.8)
[2018-09-30 17:43] LABS: Lymphocytes % 5 % (10-50); Monocytes % 8 % (2-9); Neutrophils % 85 % (42-76); Total Cells Counted 100
[2018-09-30 17:44] LABS: RBC Morphology Normal
--- NOTE | 2018-10-01 08:51 | Discharge Summary ---
General - General Admission date:: 09/27/18 Discharge date: 10/01/18 HPI HPI: this wm was sent from [facility] for eval of change mental status - pt has known dysphagia from abn swallowing eval in aug- he was unable to give hx - pt was seen in the ed Brought in by ambulance from [facility] for altered mental status. Patient is a poor historian. He denies any complaint. Denies pain, shortness of breath, weakness, nausea, dizziness, illness. Hospital Course Hospital Course: xray 09/28-IMPRESSION possible minimal right perihilar atelectasis otherwise essentially negative chest ct head:IMPRESSION: 1. No acute intracranial findings. Atrophy with chronic ischemic change. 2. Sinusitis Will discharge back to [facility] today. On clindamycin. Will check PT and INR in a.m. hold Coumadin until after resulted. Objective Vital signs: Temp Pulse Resp BP Pulse Ox 98.4 F 104 H 18 138/67 91 L 10/01/18 08:00 10/01/18 08:00 10/01/18 08:00 10/01/18 08:00 10/01/18 08:00 no acute distress - *Routine HEENT Exam Head: Present: normocephalic Eye: Present: PERRL ENT: Present: mucous membranes moist - *Routine Respiratory Exam Present: CTA bilaterally - *Routine Cardiovascular Exam Present: RRR - *Routine Abdominal Exam Present: soft, normoactive bowel sounds - *Routine Extremities Exam Present: full ROM - *Routine Skin Exam Present: intact - *Routine Neurological Exam Present: alert, oriented X3 - Routine Psychiatric Exam Present: normal affect Results Labs on day of discharge: Labs from last 24 hours 09/30/18 09/30/18 09/30/18 16:25 16:25 16:25 WBC 11.7 H RBC 3.74 L Hgb 11.2 L Hct 33.6 L MCV 89.9 MCH 30.0 MCHC 33.4 RDW 14.0 Plt Count 170 MPV 7.0 L Neut % (Auto) 90.1 H Lymph % (Auto) 4.1 L [place] % (Auto) 5.6 Eos % (Auto) 0.1 Baso % (Auto) 0.2 Neut # (Auto) 10.6 H Lymph # (Auto) 0.5 L [place] # (Auto) 0.7 Eos # (Auto) 0.0 Baso # (Auto) 0.0 Total Counted 100 Neutrophils % (Manual) 85 H Lymphocytes % (Manual) 5 L Atypical Lymphs % 2.0 Monocytes % (Manual) 8 Platelet Estimate Normal RBC Morphology Normal PT 46.8 H INR 4.75 H Sodium 139 Potassium 3.2 L Chloride 105 Carbon Dioxide 20 L Anion Gap 17.2 H BUN 22 H Creatinine 1.32 H Estimated Creat Clear 62 Estimated GFR 53 L Est GFR ( Amer) 64 Glucose 153 H Calcium 8.3 L Preliminary micro results at discharge 09/27/18 13:10 Blood Culture - Preliminary Blood NO GROWTH AFTER 48 HOURS 09/27/18 13:10 Blood Culture - Preliminary Blood NO GROWTH AFTER 48 HOURS - Additional Comments Rounded with Dr. Mcgovern all orders per Shaniqua DS: Diagnosis - Discharge Diagnosis (1) Dysphagia Status: Acute (2) Altered mental status Status: Acute (3) COPD exacerbation Status: Acute (4) Healthcare-associated pneumonia Status: Acute (5) Chronic a-fib Status: Acute (6) Overweight (BMI 25.0-29.9) Status: Acute (7) Acquired thrombocytopenia Status: Acute (8) Hyponatremia Status: Acute (9) Aspiration pneumonia Status: Acute Discharge Plan - Patient Discharge Instructions ACTIVITY: Continue current activity DIET: continue same diet Patient Instructions: DI for Chronic Obstructive Pulmonary Disease, DI for Pneumonia -- Adult, DI for Altered Mental Status - Follow up Plan Follow up with: Cedric Mcgovern MD [Staff Physician] - Disposition: Xfer [facility] Home Medications: Home Medications Medication Instructions Recorded Confirmed Type cholecalciferol (vitamin D3) 50,000 unit PO TU 09/25/17 09/27/18 History 50,000 unit capsule ranitidine 150 mg tablet 150 mg PO HS 09/25/17 09/27/18 History atorvastatin 20 mg tablet 20 mg PO HS tab 11/27/17 09/27/18 History tamsulosin 0.4 mg capsule 0.4 mg PO HS 02/14/18 09/27/18 History Ondansetron [Zofran 4mg ODT] 4 mg PO Q6HP PRN 03/14/18 09/27/18 History Trazodone HCl 25 mg PO HS 03/14/18 09/27/18 History Tolterodine Tartrate [Detrol LA] 4 mg PO HS 05/22/18 09/28/18 History risperiDONE [Risperidone] 0.5 mg PO DAILY 05/22/18 09/28/18 History Metoprolol Succinate [Toprol XL 25 mg PO DAILY 09/05/18 09/27/18 History 25mg tablet] Donepezil HCl [Aricept 5mg 5 mg PO HS 09/27/18 09/27/18 History Tablet] Sertraline HCl [Zoloft 100mg 100 mg PO DAILY 09/27/18 09/27/18 History tablet] Warfarin Sodium 3 mg PO DAILY 09/27/18 09/27/18 History Acetaminophen [Tylenol 500mg 500 mg PO Q4HP PRN 09/28/18 09/28/18 History tablet] Folic Acid/Vit B Complex and C 0.8 mg PO DAILY 09/28/18 09/28/18 History [Evie-Constantin Tablet] Clindamycin HCl [Clindamycin HCl 300 mg PO Q8 10 Days cap 10/01/18 Rx 300mg Cap] Prescriptions/Medication Reconciliation: New Clindamycin HCl [Clindamycin HCl 300mg Cap] 300 mg PO Q8 10 Days cap Continue ranitidine 150 mg tablet 150 mg PO HS cholecalciferol (vitamin D3) 50,000 unit capsule 50,000 unit PO TU atorvastatin 20 mg tablet 20 mg PO HS tab tamsulosin 0.4 mg capsule 0.4 mg PO HS Ondansetron [Zofran 4mg ODT] 4 mg PO Q6HP PRN PRN Reason: Nausea Metoprolol Succinate [Toprol XL 25mg tablet] 25 mg PO DAILY Sertraline HCl [Zoloft 100mg tablet] 100 mg PO DAILY Donepezil HCl [Aricept 5mg Tablet] 5 mg PO HS Warfarin Sodium 3 mg PO DAILY Folic Acid/Vit B Complex and C [Evie-Constantin Tablet] 0.8 mg PO DAILY Acetaminophen [Tylenol 500mg tablet] 500 mg PO Q4HP PRN PRN Reason: PAIN/FEVER Trazodone HCl 25 mg PO HS Tolterodine Tartrate [Detrol LA] 4 mg PO HS risperiDONE [Risperidone] 0.5 mg PO DAILY
--- NOTE | 2018-10-01 09:18 | Progress Note ---
Internal Medicine - PN: Subj *Date: 09/30/18 *Time: 08:00 Interval history: doing better with less cough Exam Vital signs and Labs for Last 24 Hours: Temp Pulse Resp BP Pulse Ox 98.4 F 104 H 18 138/67 91 L 10/01/18 08:00 10/01/18 08:00 10/01/18 08:00 10/01/18 08:00 10/01/18 08:00 Laboratory Results - last 24 hr 09/30/18 16:25: WBC 11.7 H, RBC 3.74 L, Hgb 11.2 L, Hct 33.6 L, MCV 89.9, MCH 30.0, MCHC 33.4, RDW 14.0, Plt Count 170, MPV 7.0 L, Neut % (Auto) 90.1 H, Lymph % (Auto) 4.1 L, [place] % (Auto) 5.6, Eos % (Auto) 0.1, Baso % (Auto) 0.2, Neut # (Auto) 10.6 H, Lymph # (Auto) 0.5 L, [place] # (Auto) 0.7, Eos # (Auto) 0.0, Baso # (Auto) 0.0, Total Counted 100, Neutrophils % (Manual) 85 H, Lymphocytes % (Manual) 5 L, Atypical Lymphs % 2.0, Monocytes % (Manual) 8, Platelet Estimate Normal, RBC Morphology Normal 09/30/18 16:25: PT 46.8 H, INR 4.75 H 09/30/18 16:25: Sodium 139, Potassium 3.2 L, Chloride 105, Carbon Dioxide 20 L, Anion Gap 17.2 H, BUN 22 H, Creatinine 1.32 H, Estimated Creat Clear 62, Estimated GFR 53 L, Est GFR ( Amer) 64, Glucose 153 H, Calcium 8.3 L I & O for Last 24 hours: Intake & Output 09/28/18 09/29/18 09/30/18 10/01/18 11:59 11:59 11:59 11:59 Intake Total 1490 / 1490 750 / 750 870 / 870 960 / 960 Output Total 240 / 240 Balance 1250 / 1250 750 / 750 870 / 870 960 / 960 Weight 205 lb 8 oz 205 lb 8 oz 205 lb 8 oz 205 lb 7.992 oz - Constitutional no acute distress - *Routine HEENT Exam Head: Present: hematoma Eye: Present: EOMI, PERRL ENT: Present: mucous membranes dry - *Routine Neck Exam Present: supple. Absent: JVD - *Routine Respiratory Exam Present: rhonchi - *Routine Cardiovascular Exam Present: RRR, murmur - *Routine Abdominal Exam Present: soft - *Routine Extremities Exam Present: full ROM - *Routine Skin Exam Present: intact - *Routine Neurological Exam Present: alert, oriented X3, CN II-XII intact - Routine Psychiatric Exam Present: normal affect Assessment and Plan (1) Dysphagia Current visit: Yes Status: Acute Category: Medical Code(s): R13.10 - Dysphagia, unspecified (2) Altered mental status Current visit: Yes Status: Acute Qualifiers: Altered mental status type: disorientation Qualified Code(s): R41.0 - Disorientation, unspecified Category: Medical Code(s): R41.82 - Altered mental status, unspecified (3) COPD exacerbation Current visit: Yes Status: Acute Category: Medical Code(s): J44.1 - Chronic obstructive pulmonary disease with (acute) exacerbation (4) Healthcare-associated pneumonia Current visit: Yes Status: Acute Category: Medical Code(s): J18.9 - Pneumonia, unspecified organism (5) Chronic a-fib Current visit: No Status: Acute Category: Medical Code(s): I48.2 - Chronic atrial fibrillation (6) Overweight (BMI 25.0-29.9) Current visit: Yes Status: Acute Category: Medical Code(s): E66.3 - Overweight (7) Acquired thrombocytopenia Current visit: Yes Status: Acute Category: Medical Code(s): D69.6 - Thrombocytopenia, unspecified (8) Hyponatremia Current visit: Yes Status: Acute Category: Medical Code(s): E87.1 - Hypo- osmolality and hyponatremia (9) Aspiration pneumonia Current visit: Yes Status: Acute Category: Medical Code(s): J69.0 - Pneumonitis due to inhalation of food and vomit
--- NOTE | 2018-10-01 10:18 | Progress Note ---
Internal Medicine - PN: Subj *Date: 10/01/18 (N) *Time: 10:18 Exam Vital signs and Labs for Last 24 Hours: Temp Pulse Resp BP Pulse Ox 98.4 F 104 H 18 138/67 91 L 10/01/18 08:00 10/01/18 08:00 10/01/18 08:00 10/01/18 08:00 10/01/18 08:00 Laboratory Results - last 24 hr 09/30/18 16:25: WBC 11.7 H, RBC 3.74 L, Hgb 11.2 L, Hct 33.6 L, MCV 89.9, MCH 30.0, MCHC 33.4, RDW 14.0, Plt Count 170, MPV 7.0 L, Neut % (Auto) 90.1 H, Lymph % (Auto) 4.1 L, [place] % (Auto) 5.6, Eos % (Auto) 0.1, Baso % (Auto) 0.2, Neut # (Auto) 10.6 H, Lymph # (Auto) 0.5 L, [place] # (Auto) 0.7, Eos # (Auto) 0.0, Baso # (Auto) 0.0, Total Counted 100, Neutrophils % (Manual) 85 H, Lymphocytes % (Manual) 5 L, Atypical Lymphs % 2.0, Monocytes % (Manual) 8, Platelet Estimate Normal, RBC Morphology Normal 09/30/18 16:25: PT 46.8 H, INR 4.75 H 09/30/18 16:25: Sodium 139, Potassium 3.2 L, Chloride 105, Carbon Dioxide 20 L, Anion Gap 17.2 H, BUN 22 H, Creatinine 1.32 H, Estimated Creat Clear 62, Estimated GFR 53 L, Est GFR ( Amer) 64, Glucose 153 H, Calcium 8.3 L I & O for Last 24 hours: Intake & Output 09/28/18 09/29/18 09/30/18 10/01/18 23:59 23:59 23:59 23:59 Intake Total 510 / 510 630 / 630 960 / 960 480 / 480 Output Total 240 / 240 Balance 270 / 270 630 / 630 960 / 960 480 / 480 Weight 93.213 kg 93.213 kg Assessment and Plan (1) Dysphagia Status: Acute Category: Medical Code(s): R13.10 - Dysphagia, unspecified (2) Altered mental status Status: Acute Qualifiers: Altered mental status type: disorientation Qualified Code(s): R41.0 - Disorientation, unspecified Category: Medical Code(s): R41.82 - Altered mental status, unspecified (3) COPD exacerbation Status: Acute Category: Medical Code(s): J44.1 - Chronic obstructive pulmonary disease with (acute) exacerbation (4) Healthcare-associated pneumonia Status: Acute Category: Medical Code(s): J18.9 - Pneumonia, unspecified organism (5) Chronic a-fib Status: Acute Category: Medical Code(s): I48.2 - Chronic atrial fibrillation (6) Overweight (BMI 25.0-29.9) Status: Acute Category: Medical Code(s): E66.3 - Overweight (7) Acquired thrombocytopenia Status: Acute Category: Medical Code(s): D69.6 - Thrombocytopenia, unspecified (8) Hyponatremia Status: Acute Category: Medical Code(s): E87.1 - Hypo-osmolality and hyponatremia (9) Aspiration pneumonia Status: Acute Category: Medical Code(s): J69.0 - Pneumonitis due to inhalation of food and vomit The patient's infection will respond to the chosen ABx?: Yes Is the patient receiving the right drug, dose, and route?: Yes Could a more targeted ABx be ordered?: No (SPUTUM-NORMAL HARLAN, BLOOD CULTURES- NEGATIVE)
== END 2018-10-01 09:52 | DRG 178 ==
LOC: 2ND 13:13 → ER 13:13 → OBSVTOIN 16:20 → 2ND 16:21 → ICU 17:52 → 2ND 09-28 15:35
PROVIDERS: ADMIT Emergency Medicine; ATTEND Emergency Medicine
CPT/HCPCS: 36415; 70450; 71010; 71045; 80048; 80053; 80202; 82803; 82962; 83605; 84484; 85007; 85025; 85610; 87040; 87070; 87205; 87506; 93005; 94640; 94761; 96365; 96375; 99285; J1956; J3370

== ENCOUNTER → 2019-01-06 10:28 | Outpatient (CLI) | payer MEDICARE, MEDICAID, SELFPAY ==
--- NOTE | 2019-01-06 11:34 | HMH.SLMBS2 ---
Speech & Language Evaluation Speech/Language Mod Barium Swallow Start: 01/06/19 11:23 Freq: once Status: Complete Protocol: Document 01/06/19 11:23 BARRIE (Rec: 01/06/19 11:34 BARRIE [id number]) MBS Recommendations Diet Dietary Recommendations Dysphagia Mechanical Soft, Fraser Liquids Treatment/Strategies Strategy/Precaution Recommend Sitting Upright (90 deg),No Straw,Small Bites and Sips, Alternate Liquids/Solids Mod Barium Swallow Impressions Summary and Impressions Oral Phase Impression No Impairment (WFL) Oral Phase Summary Mr. Maldonado was given the following consistencies: pudding, honey, nectar, thins via straw and open cup, pureed , mechanical soft. No impairments noted with oral phase. Pharyngeal Phase Impression Mild Impairment Pharyngeal Phase Summary Mr. Maldonado did exhibit penetration with thin liquids via straw and open cup however aspiration was not noted. It was noted that Mr. Maldonado exhibits impulsivity at this time. It is recommended that Mr. Maldonado upgrade to mechanical soft diet with nectar thick liquids. Straws not recommended. Speech/Language MBS Assessment/Goals/Plan Assessment Date of Evaluation: 01/06/19 Evaluation Type Initial Certification Assessment/Problems Dysphagia Does Patient Qualify for Service No Qualify/Failure Comment Diet upgrade. ST to follow up at SNF Recommendations PHYSICIAN CERTIFICATION: The specified therapy services are required, authorized, and reviewed every 30 days. Crush Meds Crush all meds Plan Pt/Guardian verbally ack understanding Yes of dx/prognosis/goals G -code Required Yes G-CODES ST Current Status [id number] ST Current Status Modifier CI-At least 1% but less than 20% impaired, limited or restricted ST Goal Status [id number] ST Goal Status Modifier CI-At least 1% but less than 20% impaired, limited or restricted Mod Barium Swallow Setup Exam Setup Radiologist Camilo Bourgeois Level of Consciousness Awake,Alert,Appropriate, Follows Commands
== END ==
PROVIDERS: PCP Emergency Medicine; Visit Provider Emergency Medicine
DX: J69.0 Pneumonitis due to inhalation of food and vomit (principal); R13.10 Dysphagia, unspecified
CPT/HCPCS: 70371; 92611

== ENCOUNTER 2019-09-16 03:54 | Inpatient (IN) ==
[2019-09-16 04:09] LABS: Basophils % 0.3 % (0.1-2.0); Eosinophils # 0.1 K/mm3 (0.0-0.4); Eosinophils % 1.2 % (0.1-12.0); Hematocrit 40.8 % (42.0-52.0); Lymphocytes # 0.2 K/mm3 (0.7-4.5); Lymphocytes % 2.7 % (10-50); Mean Corpuscular HGB Conc 34.3 g/dL (31.8-35.4); Mean Platelet Volume 7.7 fl (7.4-10.4); Monocytes # 0.6 K/mm3 (0.1-1.0); Monocytes % 7.2 % (1.7-9.3); Neutrophils # 7.4 K/mm3 (1.8-7.8); Neutrophils % 88.7 % (37.0-80.0); Platelet Count 170 K/mm3 (142-424); Red Blood Count 4.53 M/mm3 (4.60-6.20); Red Cell Distribution Width 13.7 % (11.5-17.5); White Blood Count 8.4 K/mm3 (4.8-10.8)
[2019-09-16 04:23] LABS: Albumin Level 3.4 gm/dL (3.4-5.0); Albumin/Globulin Ratio 1.1 (1.1-1.8); Anion Gap 17.1 mEq/L (5-15); Bilirubin,Total 0.6 mg/dL (0.2-1.0); C-Reactive Protein 3.5 mg/dL (0.0-0.9); Calcium 8.4 mg/dL (8.5-10.1); Globulin 3.1 gm/dl (1.3-3.2); Total Protein,Serum 6.5 gm/dL (6.4-8.2)
[2019-09-16 04:36] LABS: Microscopic, Urine URINE MICROSCOPIC (MICROSCOPIC)
[2019-09-16 04:37] LABS: Erythrocyte Sedimentation Rate 26 mm/hr (0-20)
[2019-09-16 04:37] LABS: Bilirubin,Urine Negative (Negative); Blood, Urine 3+ (Negative); Color,Urine YELLOW (Yellow); Glucose,Urine (UA) Negative (Negative); Ketones,Urine Negative (Negative); Leukocyte Esterase,Urine 2+ (Negative); PH,Urine 8.5 (5.0-8.5); Protein,Urine 2+ (Negative)
[2019-09-16 04:39] LABS: Appearance,Urine Cloudy (Clear)
[2019-09-16 05:00] LABS: Lymphocytes % 4 % (10-50); Monocytes % 3 % (2-9); Neutrophils % 93 % (42-76); Ovalocytes 1+; Stomatocytes 1+; Total Cells Counted 100
[2019-09-16 05:04] LABS: Bacteria,Urine 2+ /lpf; Mucus,Urine 1+ /lpf; WBC,Urine 20-50 #/hpf (0-3)
--- NOTE | 2019-09-16 05:30 | Emergency Department Note ---
ED Disposition Clinical Impression: SIRS (systemic inflammatory response syndrome), Lesion of lumbar spine, Diverticulosis, Obesity (BMI 30-39.9) UTI (urinary tract infection) Qualifiers: Urinary tract infection type: site unspecified Hematuria presence: without hematuria Qualified Code(s): N39.0 - Urinary tract infection, site not specified Inguinal hernia Qualifiers: Obstruction and gangrene presence: without obstruction or gangrene Laterality: unilateral Recurrence: recurrent Qualified Code(s): K40.91 - Unilateral inguinal hernia, without obstruction or gangrene, recurrent Disposition: Admitted as Observation Condition on Discharge: Good Instructions: DI for Diarrhea and Traveler's Diarrhea -- Adult, DI for Diarrhea and Traveler's Diarrhea -- Child, DI for Nausea -- Adult, DI for Nausea -- Child Referrals: Cedric Mcgovern MD [Primary Care Provider] - - Critical Care Critical Care Time: No Attestation: On 09/16/19, the high probability of a clinically significant, sudden or life threatening deterioration of the following system(s) required my full and direct attention, intervention and personal management. The time I documented below is in addition to time spent performing reported procedures but includes the following listed in this critical care notation. Medical Decision Making - Medical Records Medical records reviewed: Yes: I reviewed the patient's medical records. - [place] Inquiry Pt receiving controlled substance: No Vital Signs: 09/16/19 03:40 09/16/19 05:07 Temperature 102.7 F H Temperature Source Rectal Pulse Rate [Left Radial] 118 H 106 H Respiratory Rate 17 20 Blood Pressure [Right Arm] 131/86 126/80 Blood Pressure Mean [Right Arm] 101 95 Blood Pressure Source [Right Arm] Automatic Cuff Blood Pressure Position [Right Arm] Sitting 02 Sat by Pulse Oximetry 95 96 Oxygen Delivery Method Nasal Cannula Nasal Cannula Oxygen Flow Rate (LPM) 2 - Lab Data Lab results reviewed: Yes: I reviewed the patient's lab results. Lab Results 09/16/19 03:45: Lactate 1.1 09/16/19 03:45: WBC 8.4, RBC 4.53 L, Hgb 14.0 L, Hct 40.8 L, MCV 90.0, MCH 30.9, MCHC 34.3, RDW 13.7, Plt Count 170, MPV 7.7, Neut % (Auto) 88.7 H, Lymph % (Auto) 2.7 L, [place] % (Auto) 7.2, Eos % (Auto) 1.2, Baso % (Auto) 0.3, Neut # (Auto) 7.4, Lymph # (Auto) 0.2 L, [place] # (Auto) 0.6, Eos # (Auto) 0.1, Baso # (Auto) 0.0, Total Counted 100, Neutrophils % (Manual) 93 H, Lymphocytes % (Manual) 4 L, Monocytes % (Manual) 3, Platelet Estimate Normal, RBC Morphology Not Reportable, Ovalocytes 1+, Stomatocytes 1+, ESR 26 H 09/16/19 03:45: Sodium 140, Potassium 4.1, Chloride 102, Carbon Dioxide 25, Anion Gap 17.1 H, BUN 18, Creatinine 1.21, Estimated Creat Clear 90, Estimated GFR 58 L, Est GFR ( Amer) 70, Glucose 126 H, Calcium 8.4 L, Total Bilirubin 0.6, AST 23, ALT 19, Alkaline Phosphatase 151 H, C-Reactive Protein 3.5 H, Total Protein 6.5, Albumin 3.4, Globulin 3.1, Albumin/Globulin Ratio 1.1 09/16/19 04:30: Urine Color Yellow, Urine Appearance Cloudy, Urine pH 8.5, Ur Sp ecific [place] 1.020, Urine Protein 2+, Urine Glucose (UA) Negative, Urine Ketones Negative, Urine Blood 3+, Urine Nitrate Negative, Urine Bilirubin Negative, Urine Urobilinogen 1.0, Ur Leukocyte Esterase 2+ A, Urine RBC 10-20, Urine WBC 20-50, Urine Bacteria 2+, Urine Mucus 1+ Result diagrams: 09/16/19 03:45 09/16/19 03:45 Orders (Tests/Meds): ED MEDICATIONS Generic Name Dose Route Start Last Admin Trade Name Freq PRN Reason Stop Dose Admin Sodium Chloride 1,000 mls @ 999 mls/hr 09/16/19 04:00 09/16/19 04:00 Sod Chlor 0.9% 1000ml Bag IV 09/16/19 05:00 999 mls/hr .Q1H1M ALEXANDER Administration Ertapenem 1 gm/ Sodium 50 mls @ 100 mls/hr 09/16/19 05:45 09/16/19 05:43 Chloride IV 09/30/19 05:44 100 mls/hr Q24H ALEXANDER Administration Protocol Sodium Chloride 1,000 mls @ 999 mls/hr 09/16/19 05:45 09/16/19 05:42 Sod Chlor 0.9% 1000ml Bag IV 09/16/19 06:45 999 mls/hr .Q1H1M ALEXANDER Administration Discontinued Medications Generic Name Dose Route Start Last Admin Trade Name Krishanq PRN Reason Stop Dose Admin Acetaminophen 650 mg 09/16/19 03:58 09/16/19 04:00 Acetaminophen 650mg Suppository RC 09/16/19 03:59 650 mg ONCE ONE Administration Ibuprofen 800 mg 09/16/19 03:54 09/16/19 05:04 Motrin 400mg Tablet PO 09/16/19 03:55 Not Given ONCE ONE Ioversol 75 ml 09/16/19 04:59 09/16/19 05:00 Rad-Optiray 350 100ml Vial IV 09/16/19 05:00 75 ml ONCE ONE Administration Protocol Methylprednisolone Sodium Succinate 125 mg 09/16/19 05:19 09/16/19 05:22 Solu-Medrol 125mg/2ml Vial IV 09/16/19 05:20 125 mg ONCE ONE Administration Sodium Chloride 10 ml 09/16/19 04:59 09/16/19 05:00 Rad-Saline Flush 10ml Syringe IV 09/16/19 05:00 10 ml ONCE ONE Administration ORDERS Category Date Time Status Diarrhea 6-11 Panel, Cdiff PCR Stat Lab 09/16/19 04:30 Received PT/PTT Stat Lab 09/16/19 03:45 Received Blood Culture Stat Micro 09/16/19 03:45 Received Urine Culture Stat Micro 09/16/19 04:30 Received - Radiology Data #1 Image(s): Chest Image Reviewed: Yes I reviewed the patient's radiology image Preliminary Findings: Abnormal (poor insp) - CT Data CT Scan: Abdomen, Pelvis Time Received: 05:[address] Reviewed: Yes: I have viewed the radiologist's interpretation Preliminary Findings: Abnormal (see report) Nausea/Vomiting/Diarrhea HPI - General Chief complaint: Nausea/Vomiting/Diarrhea Stated complaint: vomiting, fever Time Seen by Provider: 09/16/19 04:00 Mode of Arrival: EMS Source of Information: Patient, EMS, Medical Record Limitations: No Limitations Description of Symptoms (Recalled from ER Triage Doc. by RN): per report pt was nausous and had an episode of vomiting earlier this evening. pt was given zofran with no relief. pt was later found by staff laying in bed covered in emisis. staff also reports fever and diarrhea starting this evening. - History of Present Illness HPI Narrative: pt sent fron f with fever and vomiting - also with diarrhea - no rash - pt is w/o specific c/o MD complaint: nausea, vomiting, diarrhea, abdominal pain Onset (ago): hour(s) Associated Abdominal Pain: Yes Location of pain: periumbilical Severity: moderate Associated symptoms: denies other symptoms - Related Data Home Medications Medication Instructions Recorded Confirmed cholecalciferol (vitamin D3) 1,250 50,000 unit PO TU 09/25/17 09/16/19 mcg (50,000 unit) capsule atorvastatin 20 mg tablet 20 mg PO HS tab 11/27/17 09/16/19 tamsulosin 0.4 mg capsule 0.4 mg PO HS 02/14/18 09/16/19 Ondansetron [Zofran 4mg ODT] 4 mg PO Q6HP PRN 03/14/18 09/16/19 Tolterodine Tartrate [Detrol LA] 4 mg PO HS 05/22/18 09/16/19 risperiDONE [Risperidone] 0.5 mg PO DAILY 05/22/18 09/16/19 Metoprolol Succinate [Toprol XL 25 mg PO DAILY 09/05/18 09/16/19 25mg tablet] Donepezil HCl [Aricept 5mg 5 mg PO HS 09/27/18 09/16/19 Tablet] Sertraline HCl [Zoloft 100mg 100 mg PO DAILY 09/27/18 09/16/19 tablet] Acetaminophen [Tylenol 500mg 500 mg PO Q4HP PRN 09/28/18 09/16/19 tablet] Folic Acid/Vit B Complex and C 0.8 mg PO DAILY 09/28/18 09/16/19 [Evie-Constantin Tablet] Famotidine [Pepcid 20mg Tablet] 20 mg PO DAILY 08/15/19 09/16/19 Sulfacetamide Sodium [Sulf-10% 10 mg PO QID 08/15/19 09/16/19 opth soln 15mL] Warfarin Sodium 2.5 mg PO DAILY 09/16/19 09/16/19 Allergies Allergy/AdvReac Type Severity Reaction Status Date / Time No Known Allergies Allergy Verified 05/27/19 16:45 [facility] History - Hepatitis A Screen Drug use history?: No High risk sexual behaviors?: No History of sexually transmitted infection?: No Currently employed?: No Childcare worker?: No Do you have indoor plumbing?: Yes Do you have electricity?: Yes Attestation statement:: This patient has been screened for Hepatitis A risk factors. I have reviewed the patient's past medical history: Yes Medical History: Reports:: Atherosclerotic Heart Disease, Chronic Obstructive Pulmonary Disease (COPD), Coronary Artery Disease, Cerebrovascular Accident, Dementia, Hyperlipidemia, Hypertension, Internal Pacemaker Denies:: Cancer, Diabetes Mellitus Type 1, Diabetes Mellitus Type 2, MRSA Comment: cad,pacemaker, Other Surgeries: Yes: CABG, Cardiac Surgery, Pacemaker, Other (Eye surgery) Amputation: No Comment: Eye surgery, Quad heart bypass - Social History Smoking Status: Never smoker Alcohol Intake: never Alcohol Intake Frequency:: other Substance Use Type: denies use Occupational Status: retired Housing: shelter Family Hx:: Unable to obtain ROS Obtained: Yes All systems reviewed & no additional complaints - Constitutional Constitutional: Reports fever(s) - Eyes Eyes: Denies eye discharge - ENT Ears, Nose, Mouth, and Throat: Denies sore throat - Cardiovascular Cardiovascular: Denies chest pain - Respiratory Respiratory: No cough - Gastrointestinal Gastrointestingal: Reports: diarrhea, nausea, vomiting. Denies: abdominal pain - Genitourinary Male Genitourinary: Denies hematuria - Musculoskeletal Musculoskeletal: Denies joint pain, Denies joint swelling - Integumentary/Breasts Skin/Breast: Denies rash - Neurologic Neurologic: Denies seizure-like activity Physical Exam - General General appearance: alert - Head Head exam: atraumatic - Eye Eye exam: Present: PERRL, EOMI. Absent: scleral icterus - ENT ENT exam: Present: mucous membranes dry - Neck Neck exam: Present: trachea midline - Respiratory Respiratory exam: Present: other (dec bs bilat ). Absent: respiratory distress - Cardiovascular Cardiovascular exam: Present: regular rate, systolic murmur, +S4 - Abdominal Exam Abdominal exam: Present: soft, other (reducible lt inguinal hernia ). Absent: tenderness, guarding, rebound, rigidity Abdominal tenderness: Present: epigastrium, moderate - Extremities Exam Extremities exam: Present: pedal edema - Neurological Exam Neurological exam: Present: alert, CN II-XII intact - Skin Skin exam: Absent: rash
[2019-09-16 06:25] LABS: INR 1.84 (0.9-1.1); Prothrombin Time 18.6 seconds (9.4-11.8)
[2019-09-16 06:41] LABS: Activated Partial Thrombo Time 35.7 seconds (23.6-34.0)
--- NOTE | 2019-09-16 07:40 | Pharmacy Consult Notes ---
[facility] Pharmacy VTE Monitoring - Patient Demographics Admission date: 09/16/19 Report Date: 09/16/19 Time: 07:40 Allergies/Adverse Reactions: Patient Allergies No Known Allergies Allergy (Verified 05/27/19 16:45) Height: 1.8 m Weight: 127.006 kg Patient Problems: Current Active Problems UTI (urinary tract infection) (Acute) SIRS (systemic inflammatory response syndrome) (Acute) Inguinal hernia (Acute) Lesion of lumbar spine (Acute) Diverticulosis (Acute) Obesity (BMI 30-39.9) (Acute) - VTE Risk Labs: VTE Related Lab Results Hgb 14.0 g/dL (14.1-18.0) L 09/16/19 03:45 Hct 40.8 % (42.0-52.0) L 09/16/19 03:45 Plt Count 170 K/mm3 (142-424) 09/16/19 03:45 PT 18.6 seconds (9.4-11.8) H 09/16/19 03:45 INR 1.84 (0.9-1.1) H 09/16/19 03:45 APTT 35.7 seconds (23.6-34.0) H D 09/16/19 03:45 BUN 18 mg/dL (7-18) 09/16/19 03:45 Creatinine 1.21 mg/dL (0.70-1.30) 09/16/19 03:45 Estimated Creat Clear 90 mL/min (50-200) 09/16/19 03:45 - Prophylaxis VTE Prophylaxis Ordered?: Yes Types of VTE Prophylaxis: TEDS Knee High Location of Applied Device: Bilateral Lower Extremeties - VTE Diagnosis Confirmed Treatment or plan recommended: Continue Current Treatment
--- NOTE | 2019-09-16 08:52 | History & Physical Report ---
*Admission Date: 09/16/19 *Chief complaint: Abd Pain *History of present illness: Pt sent fron f with fever and vomiting - also with diarrhea - no rash - pt is w/o specific c/o (Per Dr. Mcgovern). Patient from [facility] care facility had an episode of nausea with emesis earlier in evening, was given Zofran with no relief. Sometime afterwards patient had large emesis and was complaining of fever and an episode of loose stools. [facility] History Medical History: Reports:: Atherosclerotic Heart Disease, Atrial Fibrillation, Chronic Obstructive Pulmonary Disease (COPD), Coronary Artery Disease, Cerebrovascular Accident, Dementia, Hyperlipidemia, Hypertension, Internal P acemaker Denies:: Cancer, Diabetes Mellitus Type 1, Diabetes Mellitus Type 2, MRSA *Have you ever received a pneumonia vaccine?: Yes *Have you received a flu vaccine this season?: Yes Other Surgeries: Yes: CABG, Cardiac Surgery, Pacemaker, Other (Eye surgery) Amputation: No - *Social History Smoking Status: Never smoker Alcohol Intake: never Alcohol Intake Frequency:: other Substance Use Type: denies use *Occupational Status:: retired Housing: custodial Household Members: other *Travel in the last 8 weeks: None Family Hx:: Unable to obtain Review of Systems - Review of Systems Review of systems:: pertinent systems reviewed and negative unless documented below - Constitutional Reports fever(s), Reports weakness - Eyes Denies change in vision, Denies loss of vision - ENT Denies mouth lesions, Denies sinus pain - *Cardiovascular Denies chest pain, Denies shortness of breath - *Respiratory Denies cough, Denies shortness of breath - *Gastrointestinal Reports abdominal pain, Reports change in bowel habits, Reports loose stools, Reports nausea, Reports vomiting - *Genitourinary Denies blood in urine - *Musculoskeletal Denies back pain - Integumentary/Breasts Denies yellowing of the skin, Denies new lesions - *Neurologic Denies seizure-like activity, Denies seizure-like activity - Psychiatric Denies anxiety - Endocrine Denies cold intolerance, Denies heat intolerance - Hematologic/Lymphatic Denies easy bleeding, Denies easy bruising - Allergic/Immunologic Denies seasonal runny nose, Denies tongue swelling Meds Home Medications Medication Instructions Recorded Confirmed Type cholecalciferol (vitamin D3) 1,250 50,000 unit PO TU 09/25/17 09/16/19 History mcg (50,000 unit) capsule atorvastatin 20 mg tablet 20 mg PO HS tab 11/27/17 09/16/19 History tamsulosin 0.4 mg capsule 0.4 mg PO HS 02/14/18 09/16/19 History Ondansetron [Zofran 4mg ODT] 4 mg PO Q6HP PRN 03/14/18 09/16/19 History Tolterodine Tartrate [Detrol LA] 4 mg PO HS 05/22/18 09/16/19 History risperiDONE [Risperidone] 0.5 mg PO BID 05/22/18 09/16/19 History Metoprolol Succinate [Toprol XL 12.5 mg PO BID 09/05/18 09/16/19 History 25mg tablet] Donepezil HCl [Aricept 5mg 5 mg PO HS 09/27/18 09/16/19 History Tablet] Sertraline HCl [Zoloft 100mg 50 mg PO DAILY 09/27/18 09/16/19 History tablet] Acetaminophen [Tylenol 500mg 500 mg PO Q4HP PRN 09/28/18 09/16/19 History tablet] Folic Acid/Vit B Complex and C 0.8 mg PO DAILY 09/28/18 09/16/19 History [Evie-Constantin Tablet] Famotidine [Pepcid 20mg Tablet] 20 mg PO HS 08/15/19 09/16/19 History Dextran 70/Hypromellose 1 drp OP TID 09/16/19 09/16/19 History [Artificial Tears Eye Drops] Peg 400/Hypromellose/Glycerin 1 drp OP TID 09/16/19 09/16/19 History [Visine Dry Eye Relief Drop] Warfarin Sodium 2.5 mg PO 169909/16/19 09/16/19 History Warfarin Sodium [Coumadin 5mg 5 mg PO 169909/16/19 09/16/19 History tablet] Allergies Allergy/AdvReac Type Severity Reaction Status Date / Time No Known Allergies Allergy Verified 05/27/19 16:45 Exam Vital signs and Labs for Last 24 Hours: Temp Pulse Resp BP Pulse Ox 98.7 F 75 16 128/64 96 09/16/19 08:24 09/16/19 08:24 09/16/19 08:24 09/16/19 08:24 09/16/19 08:24 Laboratory Results - last 24 hr 09/16/19 03:45: Lactate 1.1 09/16/19 03:45: WBC 8.4, RBC 4.53 L, Hgb 14.0 L, Hct 40.8 L, MCV 90.0, MCH 30.9, MCHC 34.3, RDW 13.7, Plt Count 170, MPV 7.7, Neut % (Auto) 88.7 H, Lymph % (Auto) 2.7 L, [place] % (Auto) 7.2, Eos % (Auto) 1.2, Baso % (Auto) 0.3, Neut # (Auto) 7.4, Lymph # (Auto) 0.2 L, [place] # (Auto) 0.6, Eos # (Auto) 0.1, Baso # (Auto) 0.0, Total Counted 100, Neutrophils % (Manual) 93 H, Lymphocytes % (Manual) 4 L, Monocytes % (Manual) 3, Platelet Estimate Normal, RBC Morphology Not Reportable, Ovalocytes 1+, Stomatocytes 1+, ESR 26 H 09/16/19 03:45: Sodium 140, Potassium 4.1, Chloride 102, Carbon Dioxide 25, Anion Gap 17.1 H, BUN 18, Creatinine 1.21, Estimated Creat Clear 90, Estimated GFR 58 L, Est GFR ( Amer) 70, Glucose 126 H, Calcium 8.4 L, Total Bilirubin 0.6, AST 23, ALT 19, Alkaline Phosphatase 151 H, C-Reactive Protein 3.5 H, Total Protein 6.5, Albumin 3.4, Globulin 3.1, Albumin/Globulin Ratio 1.1 09/16/19 03:45: PT 18.6 H, INR 1.84 H, APTT 35.7 H D 09/16/19 04:30: Urine Color Yellow, Urine Appearance Cloudy, Urine pH 8.5, Ur Specific [place] 1.020, Urine Protein 2+, Urine Glucose (UA) Negative, Urine Ketones Negative, Urine Blood 3+, Urine Nitrate Negative, Urine Bilirubin Negative, Urine Urobilinogen 1.0, Ur Leukocyte Esterase 2+ A, Urine RBC 10-20, Urine WBC 20-50, Urine Bacteria 2+, Urine Mucus 1+ 09/16/19 04:30: Stl Aeromonas (PCR) Not detected, Stl C. cayetanensis PCR Not detected, Stool Rotavirus (PCR) Not detected, Stl Adenov F 40/41 PCR Not detected, Stool Astrovirus (PCR) Not detected, Stool Campylobacter PCR Not detected, Stl C.difficile Tox PCR Not detected, Stool Cryptosporidium PCR Not detected, Stl E.coli Shiga Tox PCR Not detected, Stool E coli O157 PCR Not detected, Stl Enterotoxigenic E PCR Not detected, Stool EPEC (PCR) Not detected, Stool EAEC (PCR) Not detected, Stl E. histolytica PCR Not detected, Stool Giardia Lamblia PCR Not detected, Stool Salmonella PCR Not detected, Stool Sapovirus (PCR) Not detected, Stl P. shigelloides PCR Not detected, Stl Shigella/EIEC PCR Not detected, St Y.enterocolitica PCR Not detected, Stool Vibrio (PCR) Not detected, Stl Vibrio cholerae PCR Not detected, Stl Norovirus GI/GII PCR Detected A I & O for Last 24 hours: Intake & Output 09/13/19 09/14/19 09/15/19 09/16/19 23:59 23:59 23:59 23:59 Weight 240 lb 4 oz - Constitutional no acute distress - *Routine HEENT Exam Head: Present: normocephalic. Absent: atraumatic Eye: Present: EOMI, PERRL. Absent: conjunctival icterus, periorbital tenderness ENT: Present: mucous membranes dry. Absent: sinus tenderness - *Routine Neck Exam Present: supple, full ROM, trachea midline. Absent: JVD, tracheal deviation - *Routine Respiratory Exam Present: patient mechanically ventilated, CTA bilaterally. Absent: accessory muscle use - *Routine Cardiovascular Exam Present: RRR, murmur - *Routine Abdominal Exam Present: soft, normoactive bowel sounds. Absent: tenderness, firm - *Routine Extremities Exam Present: full ROM. Absent: calf tenderness - Routine Back/Spine/Pelvis Exam Back/Spine: Present: full ROM. Absent: CVA tenderness - *Routine Skin Exam Present: intact, warm. Absent: jaundice - *Routine Neurological Exam Present: alert, CN II-XII intact. Absent: pronator drift - Routine Psychiatric Exam Present: normal affect. Absent: anxious Assessment and Plan (1) UTI (urinary tract infection) Current visit: Yes Status: Acute Qualifiers: Urinary tract infection type: site unspecified Hematuria presence: without hematuria Qualified Code(s): N39.0 - Urinary tract infection, site not specified Category: Medical Code(s): N39.0 - Urinary tract infection, site not specified (2) Diverticulosis Current visit: Yes Status: Acute Category: Medical Code(s): K57.90 - Diverticulosis of intestine, part unspecified, without perforation or abscess without bleeding (3) Lesion of lumbar spine Current visit: Yes Status: Acute Category: Medical Code(s): M89.9 - Disorder of bone, unspecified (4) Obesity (BMI 30-39.9) Current visit: Yes Status: Acute Category: Medical Code(s): E66.9 - Obesity, unspecified (5) SIRS (systemic inflammatory response syndrome) Current visit: Yes Status: Acute Category: Medical Code(s): R65.10 - Systemic inflammatory response syndrome (SIRS) of non-infectious origin without acute organ dysfunction - Assessment and plan all Dx Assessment and Plan for all problems:: Rounded with Dr. Mcgovern, all orders per Dr. Mcgovern 1. We will D/C Galaviz catheter 2. Awaiting UA culture
--- NOTE | 2019-09-16 14:44 | Consult Report ---
*Admission Date: 09/16/19 *Reason for consult:: Hernia *History of present illness: Patient is a 79-year-old white male [facility] patient with numerous medical comorbidities with history of Atherosclerotic Heart Disease, Atrial Fibrillation, Chronic Obstructive Pulmonary Disease (COPD), Coronary Artery Dis ease, Cerebrovascular Accident, Dementia, Hyperlipidemia, Hypertension, Internal Pacemaker. He had some nausea which was refractory to Zofran and diarrhea and emesis. He was brought to the emergency department where he was seen and evaluated and admitted early this morning for inpatient management. He was diagnosed with enteritis secondary to norovirus by stool diarrhea panel. His work-up also included CT scan which revealed left inguinal hernia. Surgical consultation was ordered this afternoon. Review of Systems - Review of Systems Review of systems:: unable to obtain - *Neurologic Reports weakness, Denies seizure-like activity, Denies loss of vision, Denies seizure-like activity [facility] [place] History Medical History: Reports:: Atherosclerotic Heart Disease, Atrial Fibrillation, Chronic Obstructive Pulmonary Disease (COPD), Coronary Artery Disease, Cerebrovascular Accident, Dementia, Hyperlipidemia, Hypertension, Internal Pacemaker Denies:: Cancer, Diabetes Mellitus Type 1, Diabetes Mellitus Type 2, MRSA *Have you ever received a pneumonia vaccine?: Yes *Have you received a flu vaccine this season?: Yes Other Surgeries: Yes: CABG, Cardiac Surgery, Pacemaker, Other (Eye surgery) Amputation: No - *Social History Smoking Status: Never smoker Alcohol Intake: never Alcohol Intake Frequency:: other Substance Use Type: denies use *Occupational Status:: retired Housing: [facility] Household Members: other *Travel in the last 8 weeks: None Family Hx:: Unable to obtain [facility] Medications Medication Instructions Recorded Confirmed Type cholecalciferol (vitamin D3) 1,250 50,000 unit PO TU 09/25/17 09/16/19 History mcg (50,000 unit) capsule atorvastatin 20 mg tablet 20 mg PO HS tab 11/27/17 09/16/19 History tamsulosin 0.4 mg capsule 0.4 mg PO HS 02/14/18 09/16/19 History Ondansetron [Zofran 4mg ODT] 4 mg PO Q6HP PRN 03/14/18 09/16/19 History Tolterodine Tartrate [Detrol LA] 4 mg PO HS 05/22/18 09/16/19 History risperiDONE [Risperidone] 0.5 mg PO BID 05/22/18 09/16/19 History Donepezil HCl [Aricept 5mg 5 mg PO HS 09/27/18 09/16/19 History Tablet] Acetaminophen [Tylenol 500mg 500 mg PO Q4HP PRN 09/28/18 09/16/19 History tablet] Folic Acid/Vit B Complex and C 0.8 mg PO DAILY 09/28/18 09/16/19 History [Evie-Constantin Tablet] Famotidine [Pepcid 20mg Tablet] 20 mg PO HS 08/15/19 09/16/19 History Dextran 70/Hypromellose 1 drp OP TID 09/16/19 09/16/19 History [Artificial Tears Eye Drops] Metoprolol Tartrate [Lopressor 12.5 mg PO BID 09/16/19 09/16/19 History 25mg tablet] Peg 400/Hypromellose/Glycerin 1 drp OP TID 09/16/19 09/16/19 History [Visine Dry Eye Relief Drop] Sertraline HCl [Zoloft] 50 mg PO DAILY 09/16/19 09/16/19 History Warfarin Sodium 2.5 mg PO MOFR 09/16/19 09/16/19 History Warfarin Sodium [Coumadin 5mg 5 mg PO SUTUWETHSA 09/16/19 09/16/19 History tablet] Allergies Allergy/AdvReac Type Severity Reaction Status Date / Time No Known Allergies Allergy Verified 05/27/19 16:45 Exam Vital signs and Labs for Last 24 Hours: Temp Pulse Resp BP Pulse Ox 98.7 F 75 16 128/64 96 09/16/19 08:24 09/16/19 08:24 09/16/19 08:24 09/16/19 08:24 09/16/19 08:24 Laboratory Results - last 24 hr 09/16/19 03:45: Lactate 1.1 09/16/19 03:45: WBC 8.4, RBC 4.53 L, Hgb 14.0 L, Hct 40.8 L, MCV 90.0, MCH 30.9, MCHC 34.3, RDW 13.7, Plt Count 170, MPV 7.7, Neut % (Auto) 88.7 H, Lymph % (Auto) 2.7 L, [place] % (Auto) 7.2, Eos % (Auto) 1.2, Baso % (Auto) 0.3, Neut # (Auto) 7.4, Lymph # (Auto) 0.2 L, [place] # (Auto) 0.6, Eos # (Auto) 0.1, Baso # (Auto) 0.0, Total Counted 100, Neutrophils % (Manual) 93 H, Lymphocytes % (Manual) 4 L, Monocytes % (Manual) 3, Platelet Estimate Normal, RBC Morphology Not Reportable, Ovalocytes 1+, Stomatocytes 1+, ESR 26 H 09/16/19 03:45: Sodium 140, Potassium 4.1, Chloride 102, Carbon Dioxide 25, Anion Gap 17.1 H, BUN 18, Creatinine 1.21, Estimated Creat Clear 90, Estimated GFR 58 L, Est GFR ( Amer) 70, Glucose 126 H, Calcium 8.4 L, Total Bilirubin 0.6, AST 23, ALT 19, Alkaline Phosphatase 151 H, C-Reactive Protein 3.5 H, Total Protein 6.5, Albumin 3.4, Globulin 3.1, Albumin/Globulin Ratio 1.1 09/16/19 03:45: PT 18.6 H, INR 1.84 H, APTT 35.7 H D 09/16/19 04:30: Urine Color Yellow, Urine Appearance Cloudy, Urine pH 8.5, Ur Sp ecific [place] 1.020, Urine Protein 2+, Urine Glucose (UA) Negative, Urine Ketones Negative, Urine Blood 3+, Urine Nitrate Negative, Urine Bilirubin Negative, Urine Urobilinogen 1.0, Ur Leukocyte Esterase 2+ A, Urine RBC 10-20, Urine WBC 20-50, Urine Bacteria 2+, Urine Mucus 1+ 09/16/19 04:30: Stl Aeromonas (PCR) Not detected, Stl C. cayetanensis PCR Not detected, Stool Rotavirus (PCR) Not detected, Stl Adenov F 40/41 PCR Not detected, Stool Astrovirus (PCR) Not detected, Stool Campylobacter PCR Not detected, Stl C.difficile Tox PCR Not detected, Stool Cryptosporidium PCR Not detected, Stl E.coli Shiga Tox PCR Not detected, Stool E coli O157 PCR Not detected, Stl Enterotoxigenic E PCR Not detected, Stool EPEC (PCR) Not detected, Stool EAEC (PCR) Not detected, Stl E. histolytica PCR Not detected, Stool Giardia Lamblia PCR Not detected, Stool Salmonella PCR Not detected, Stool Sapovirus (PCR) Not detected, Stl P. shigelloides PCR Not detected, Stl Shigella/EIEC PCR Not detected, St Y.enterocolitica PCR Not detected, Stool Vibrio (PCR) Not detected, Stl Vibrio cholerae PCR Not detected, Stl Norovirus GI/GII PCR Detected A I & O for Last 24 hours: Intake & Output 09/14/19 09/15/19 09/16/19 09/17/19 11:59 11:59 11:59 11:59 Intake Total 0 / 0 Output Total 300 / 300 Balance -300 / -300 0 / 0 Weight 240 lb 4 oz Narrative: Patient is resting comfortably. Abdominal examination reveals soft and nontender abdomen. Focal examination of the left inguinal area is somewhat difficult due to the patient's body habitus. Initially palpation revealed no obvious hernia as the area was soft and nontender without any palpable masslike area in the inguinal region. It is soft. When the patient coughed hernia was noted but was quickly and easily reducible. Results - Labs 09/16/19 03:45 09/16/19 03:45 Laboratory Results - last 24 hr 09/16/19 03:45: Lactate 1.1 09/16/19 03:45: WBC 8.4, RBC 4.53 L, Hgb 14.0 L, Hct 40.8 L, MCV 90.0, MCH 30.9, MCHC 34.3, RDW 13.7, Plt Count 170, MPV 7.7, Neut % (Auto) 88.7 H, Lymph % (Auto) 2.7 L, [place] % (Auto) 7.2, Eos % (Auto) 1.2, Baso % (Auto) 0.3, Neut # (Auto) 7.4, Lymph # (Auto) 0.2 L, [place] # (Auto) 0.6, Eos # (Auto) 0.1, Baso # ( Auto) 0.0, Total Counted 100, Neutrophils % (Manual) 93 H, Lymphocytes % (Manual) 4 L, Monocytes % (Manual) 3, Platelet Estimate Normal, RBC Morphology Not Reportable, Ovalocytes 1+, Stomatocytes 1+, ESR 26 H 09/16/19 03:45: Sodium 140, Potassium 4.1, Chloride 102, Carbon Dioxide 25, Anion Gap 17.1 H, BUN 18, Creatinine 1.21, Estimated Creat Clear 90, Estimated GFR 58 L, Est GFR ( Amer) 70, Glucose 126 H, Calcium 8.4 L, Total Bilirubin 0.6, AST 23, ALT 19, Alkaline Phosphatase 151 H, C-Reactive Protein 3.5 H, Total Protein 6.5, Albumin 3.4, Globulin 3.1, Albumin/Globulin Ratio 1.1 09/16/19 03:45: PT 18.6 H, INR 1.84 H, APTT 35.7 H D 09/16/19 04:30: Urine Color Yellow, Urine Appearance Cloudy, Urine pH 8.5, Ur Specific [place] 1.020, Urine Protein 2+, Urine Glucose (UA) Negative, Urine Ketones Negative, Urine Blood 3+, Urine Nitrate Negative, Urine Bilirubin Negative, Urine Urobilinogen 1.0, Ur Leukocyte Esterase 2+ A, Urine RBC 10-20, Urine WBC 20-50, Urine Bacteria 2+, Urine Mucus 1+ 09/16/19 04:30: Stl Aeromonas (PCR) Not detected, Stl C. cayetanensis PCR Not detected, Stool Rotavirus (PCR) Not detected, Stl Adenov F 40/41 PCR Not detected, Stool Astrovirus (PCR) Not detected, Stool Campylobacter PCR Not detected, Stl C.difficile Tox PCR Not detected, Stool Cryptosporidium PCR Not detected, Stl E.coli Shiga Tox PCR Not detected, Stool E coli O157 PCR Not detected, Stl Enterotoxigenic E PCR Not detected, Stool EPEC (PCR) Not detected, Stool EAEC (PCR) Not detected, Stl E. histolytica PCR Not detected, Stool Giardia Lamblia PCR Not detected, Stool Salmonella PCR Not detected, Stool Sapovirus (PCR) Not detected, Stl P. shigelloides PCR Not detected, Stl Shigella/EIEC PCR Not detected, St Y.enterocolitica PCR Not detected, Stool Vibrio (PCR) Not detected, Stl Vibrio cholerae PCR Not detected, Stl Norovirus GI/GII PCR Detected A Assessment and Plan (1) UTI (urinary tract infection) Current visit: Yes Status: Acute Qualifiers: Urinary tract infection type: site unspecified Hematuria presence: without hematuria Qualified Code(s): N39.0 - Urinary tract infection, site not specified Category: Medical Code(s): N39.0 - Urinary tract infection, site not specified (2) Diverticulosis Current visit: Yes Status: Acute Category: Medical Code(s): K57.90 - Diverticulosis of intestine, part unspecified, without perforation or abscess without bleeding (3) Lesion of lumbar spine Current visit: Yes Status: Acute Category: Medical Code(s): M89.9 - Disorder of bone, unspecified (4) Obesity (BMI 30-39.9) Current visit: Yes Status: Acute Category: Medical Code(s): E66.9 - Obesity, unspecified (5) SIRS (systemic inflammatory response syndrome) Current visit: Yes Status: Acute Category: Medical Code(s): R65.10 - Systemic inflammatory response syndrome (SIRS) of non-infectious origin without acute organ dysfunction - Assessment and plan all Dx Assessment and Plan for all problems:: Inguinal hernia is likely a chronic an incidental finding. There is no evidence of any bowel obstruction is the hernia is reducible. No additional surgical recommendations or intervention needed at this time.
[2019-09-17 07:33] LABS: Basophils % 0.1 % (0.1-2.0); Eosinophils % 0.4 % (0.1-12.0); Hematocrit 32.7 % (42.0-52.0); Hemoglobin 10.6 g/dL (14.1-18.0); Lymphocytes # 0.8 K/mm3 (0.7-4.5); Lymphocytes % 9.4 % (10-50); Mean Corpuscular HGB Conc 32.4 g/dL (31.8-35.4); Mean Corpuscular Volume 93.2 fl (80-94); Mean Platelet Volume 7.7 fl (7.4-10.4); Monocytes # 0.7 K/mm3 (0.1-1.0); Monocytes % 8.2 % (1.7-9.3); Neutrophils # 6.8 K/mm3 (1.8-7.8); Neutrophils % 81.8 % (37.0-80.0); Platelet Count 139 K/mm3 (142-424); Red Blood Count 3.51 M/mm3 (4.60-6.20); Red Cell Distribution Width 13.7 % (11.5-17.5); White Blood Count 8.3 K/mm3 (4.8-10.8)
[2019-09-17 07:39] LABS: Calcium 7.6 mg/dL (8.5-10.1)
--- NOTE | 2019-09-17 08:40 | Discharge Summary ---
General - General Admission date:: 09/16/19 Discharge date: 09/17/19 HPI HPI: Patient sitting up in bed, respirations easy even. He denies any abdominal pain or any other concerns/needs at this time. Discussed discharge back to extended care facility today, he is agreeable to this Pt sent fron [facility] with fever and vomiting - also with diarrhea - no rash - pt is w/o specific c/o (Per Dr. Mcgovern). Patient from extended care facility had an episode of nausea with emesis earlier in evening, was given Zofran with no relief. Sometime afterwards patient had large emesis and was complaining of fever and an episode of loose stools. Hospital Course Hospital Course: Patient sitting up in bed, respirations easy even. He denies any abdominal pain or any other concerns/needs at this time. Discussed discharge back to extended care facility today, he is agreeable to this Pt sent fron [facility] with fever and vomiting - also with diarrhea - no rash - pt is w/o specific c/o (Per Dr. Mcgovern). Patient from extended care facility had an episode of nausea with emesis earlier in evening, was given Zofran with no relief. Sometime afterwards patient had large emesis and was complaining of fever and an episode of loose stools. Urinalysis in the ED showed 2+ leukocytes and 2+ bacteria. Urine culture grew no bacteria. 09/16/2019 Abd/Pelvic CT: IMPRESSION: 1. Medium-sized left inguinal hernia containing small bowel loops. There are scattered air-fluid levels within mildly distended small bowel suggesting partial small bowel obstruction from the hernia. 2. Colonic diverticulosis. There is minimal haziness of the fat around diverticula in the right lower quadrant from the redundant sigmoid colon which could be due to mild diverticulitis. 3. Multiple unopacified bowel loops in the abdomen or pelvis which could obscure or mimic pathology. If symptoms persist, consider repeat exam with IV and oral contrast. Dictated by: Dr. Bourgeois, Gen Surg sen and rec: Inguinal hernia is likely a chronic an incidental finding. There is no evidence of any bowel obstruction is the hernia is reducible. No additional surgical recommendations or intervention needed at this time. Objective Vital signs: Temp Pulse Resp BP Pulse Ox 97.9 F 70 17 121/66 99 09/17/19 08:00 09/17/19 08:00 09/17/19 08:00 09/17/19 08:00 09/17/19 08:00 no acute distress - *Routine HEENT Exam Head: Present: normocephalic, atraumatic. Absent: tenderness of temporal artery Eye: Present: EOMI, PERRL, periorbital ecchymosis. Absent: periorbital tenderness ENT: Present: mucous membranes dry. Absent: sinus tenderness - *Routine Neck Exam Present: supple, full ROM, trachea midline. Absent: JVD, tracheal deviation - *Routine Respiratory Exam Present: CTA bilaterally. Absent: accessory muscle use - *Routine Cardiovascular Exam Present: RRR, murmur - *Routine Abdominal Exam Present: soft, normoactive bowel sounds. Absent: tenderness, firm - *Routine Extremities Exam Present: full ROM, pulses intact. Absent: calf tenderness - Routine Back/Spine/Pelvis Exam Back/Spine: Present: full ROM. Absent: CVA tenderness - *Routine Skin Exam Present: intact, warm. Absent: erythema, jaundice - *Routine Neurological Exam Present: alert, CN II-XII intact. Absent: hemineglect - Routine Psychiatric Exam Present: normal affect. Absent: suicidal ideation, homicidal ideation Results Labs on day of discharge: Labs from last 24 hours 09/17/19 09/17/19 07:07 07:07 WBC 8.3 RBC 3.51 L Hgb 10.6 L Hct 32.7 L MCV 93.2 MCH 30.2 MCHC 32.4 RDW 13.7 Plt Count 139 L MPV 7.7 Neut % (Auto) 81.8 H Lymph % (Auto) 9.4 L [place] % (Auto) 8.2 Eos % (Auto) 0.4 Baso % (Auto) 0.1 Neut # (Auto) 6.8 Lymph # (Auto) 0.8 [place] # (Auto) 0.7 Eos # (Auto) 0.0 Baso # (Auto) 0.0 Sodium 141 Potassium 4.0 Chloride 109 H Carbon Dioxide 25 Anion Gap 11.0 BUN 21 H Creatinine 1.25 Estimated Creat Clear 75 Estimated GFR 56 L Est GFR ( Amer) 68 Glucose 97 Calcium 7.6 L Preliminary micro results at discharge 09/16/19 04:30 Urine Culture - Preliminary Urine,Clean Catch NO GROWTH AFTER 24 HOURS - Additional Comments Rounded with Dr. Mcgovern, all orders per Dr. Mcgovern 1. We will discharge back to [facility] 2. We will follow-up on residential rounds DS: Diagnosis - Discharge Diagnosis (1) UTI (urinary tract infection) Status: Acute (2) Diverticulosis Status: Acute (3) Lesion of lumbar spine Status: Acute (4) Obesity (BMI 30-39.9) Status: Acute (5) SIRS (systemic inflammatory response syndrome) Status: Acute Discharge Plan - Patient Discharge Instructions ACTIVITY: Continue current activity DIET: continue same diet Patient Instructions: DI for Groin Hernia, Urinary Tract Infection, Groin Hernia -- Adult, DI for Urinary Tract Infection (UTI) - Follow up Plan Follow up with: Yue Hargrove APRN [Advanced Practice Nurse] - Disposition: Xfer [facility] Home Medications: Home Medications Medication Instructions Recorded Confirmed Type cholecalciferol (vitamin D3) 1,250 50,000 unit PO TU 09/25/17 09/16/19 History mcg (50,000 unit) capsule atorvastatin 20 mg tablet 20 mg PO HS tab 11/27/17 09/16/19 History tamsulosin 0.4 mg capsule 0.4 mg PO HS 02/14/18 09/16/19 History Ondansetron [Zofran 4mg ODT] 4 mg PO Q6HP PRN 03/14/18 09/16/19 History Tolterodine Tartrate [Detrol LA] 4 mg PO HS 05/22/18 09/16/19 History risperiDONE [Risperidone] 0.5 mg PO BID 05/22/18 09/16/19 History Donepezil HCl [Aricept 5mg 5 mg PO HS 09/27/18 09/16/19 History Tablet] Acetaminophen [Tylenol 500mg 500 mg PO Q4HP PRN 09/28/18 09/16/19 History tablet] Folic Acid/Vit B Complex and C 0.8 mg PO DAILY 09/28/18 09/16/19 History [Evie-Constantin Tablet] Famotidine [Pepcid 20mg Tablet] 20 mg PO HS 08/15/19 09/16/19 History Dextran 70/Hypromellose 1 drp OP TID 09/16/19 09/16/19 History [Artificial Tears Eye Drops] Metoprolol Tartrate [Lopressor 12.5 mg PO BID 09/16/19 09/16/19 History 25mg tablet] Peg 400/Hypromellose/Glycerin 1 drp OP TID 09/16/19 09/16/19 History [Visine Dry Eye Relief Drop] Sertraline HCl [Zoloft] 50 mg PO DAILY 09/16/19 09/16/19 History Warfarin Sodium 2.5 mg PO MOFR 09/16/19 09/16/19 History Warfarin Sodium [Coumadin 5mg 5 mg PO SUTUWETHSA 09/16/19 09/16/19 History tablet] Prescriptions/Medication Reconciliation: Continued cholecalciferol (vitamin D3) 1,250 mcg (50,000 unit) capsule 50,000 unit PO TU atorvastatin 20 mg tablet 20 mg PO HS tab tamsulosin 0.4 mg capsule 0.4 mg PO HS Ondansetron [Zofran 4mg ODT] 4 mg PO Q6HP PRN PRN Reason: Nausea Donepezil HCl [Aricept 5mg Tablet] 5 mg PO HS Folic Acid/Vit B Complex and C [Evie-Constantin Tablet] 0.8 mg PO DAILY Acetaminophen [Tylenol 500mg tablet] 500 mg PO Q4HP PRN PRN Reason: PAIN/FEVER Famotidine [Pepcid 20mg Tablet] 20 mg PO HS Warfarin Sodium 2.5 mg PO MOFR Dextran 70/Hypromellose [Artificial Tears Eye Drops] 1 drp OP TID Warfarin Sodium [Coumadin 5mg tablet] 5 mg PO SUTUWETHSA Tolterodine Tartrate [Detrol LA] 4 mg PO HS risperiDONE [Risperidone] 0.5 mg PO BID Peg 400/Hypromellose/Glycerin [Visine Dry Eye Relief Drop] 1 drp OP TID Metoprolol Tartrate [Lopressor 25mg tablet] 12.5 mg PO BID Sertraline HCl [Zoloft] 50 mg PO DAILY - Problem Reconciliation Problems Reviewed?: Yes
== END 2019-09-17 12:46 | DRG 690 ==
LOC: ER 03:54 → 2ND 03:54 → OBSVTOIN 07:09 → 2ND 07:09
PROVIDERS: ADMIT Emergency Medicine; ATTEND Emergency Medicine
CPT/HCPCS: 36415; 71010; 71045; 74177; 80048; 80053; 81001; 83605; 85007; 85025; 85610; 85651; 85730; 86140; 87040; 87086; 87088; 87186; 87506; 96365; 96367; 96375; 99285; G0378; J1335; Q9967

== ENCOUNTER → 2020-06-11 18:49 | Outpatient (CLI) | payer MEDICARE, MEDICAID, SELFPAY ==
[2020-06-11 19:01] LABS: Basophils % 0.4 % (0.1-2.0); Eosinophils # 0.2 K/mm3 (0.0-0.4); Eosinophils % 3.5 % (0.1-12.0); Hematocrit 39.9 % (42.0-52.0); Hemoglobin 13.5 g/dL (14.1-18.0); Lymphocytes # 1.1 K/mm3 (0.7-4.5); Lymphocytes % 17.8 % (10-50); Mean Corpuscular HGB Conc 33.8 g/dL (31.8-35.4); Mean Corpuscular Hemoglobin 30.6 pg (27.0-31.2); Mean Corpuscular Volume 90.6 fl (80-94); Mean Platelet Volume 7.2 fl (7.4-10.4); Monocytes # 0.4 K/mm3 (0.1-1.0); Monocytes % 6.4 % (1.7-9.3); Neutrophils # 4.6 K/mm3 (1.8-7.8); Neutrophils % 71.9 % (37.0-80.0); Platelet Count 152 K/mm3 (142-424); White Blood Count 6.3 K/mm3 (4.8-10.8)
[2020-06-11 20:30] LABS: Chloride 100 mmol/L (98-107); Sodium 135 mmol/L (136-145)
[2020-06-11 20:31] LABS: Potassium 4.5 mmoL/L (3.5-5.1)
[2020-06-11 20:33] LABS: Alanine Aminotransferase 18 U/L (12-78); Alkaline Phosphatase 123 U/L (38-126); Aspartate Amino Transferase 30 U/L (17-59); Bilirubin,Total 0.5 mg/dl (0.2-1.3); Blood Urea Nitrogen 16 mg/dl (9-20); Estimated Glomerular Filt Rate 81 ml/min (>60); GFR (African American) 98 ML/MIN (>60)
[2020-06-11 20:34] LABS: Albumin Level 3.6 g/dl (3.5-5.0); Albumin/Globulin Ratio 1.6 (1.1-1.8); Anion Gap 10.5 mEq/L (5-15); Calcium 8.8 mg/dl (8.4-10.2); Carbon Dioxide 29 mmol/L (22.0-30.0); Globulin 2.3 g/dL (1.3-3.2); Glucose 120 mg/dl (74-100); Total Protein,Serum 5.9 g/dl (6.3-8.2)
== END ==
PROVIDERS: PCP Emergency Medicine; Visit Provider Emergency Medicine
DX: R50.9 Fever, unspecified (principal)
CPT/HCPCS: 80053; 85025

== ENCOUNTER → 2020-09-04 16:28 | Outpatient (CLI) | payer MEDICARE, MEDICAID, SELFPAY ==
[2020-09-04 17:37] LABS: Coronavirus 19 IgG Antibody Negative (Negative); Coronavirus 19 IgM Antibody Negative (Negative)
== END ==
PROVIDERS: Visit Provider Emergency Medicine
DX: U07.1 COVID-19
CPT/HCPCS: 86328; U0003

== ENCOUNTER 2020-09-25 19:11 | Inpatient (IN) | payer MEDICARE, MEDICAID, SELFPAY ==
[2020-09-25] VITALS (8 sets, daily range): BP systolic 106–157; BP diastolic 57–79; PULSE 80–114; RESP 15–24; TEMP 37.6; O2SAT 94–99; BMI 29.2
--- NOTE | 2020-09-25 19:15 | HMH.EDGENADL ---
ED Disposition Condition on Discharge: Fair - Critical Care Critical Care Time: No <Dennis Rosas - Last Filed: 09/25/20 20:18> <Cedric Mcgovern - Last Filed: 09/25/20 22:40> Clinical Impression: KARMEN (acute kidney injury), Hypernatremia, Overweight (BMI 25.0-29.9), Pacemaker Altered mental status Qualifiers: Altered mental status type: somnolence Qualified Code(s): R40.0 - Somnolence Pulmonary embolism Qualifiers: Pulmonary embolism type: unspecified Chronicity: acute Acute cor pulmonale presence: without acute cor pulmonale Qualified Code(s): I26.99 - Other pulmonary embolism without acute cor pulmonale UTI (urinary tract infection) Qualifiers: Urinary tract infection type: site unspecified Hematuria presence: without hematuria Qualified Code(s): N39.0 - Urinary tract infection, site not specified CAD (coronary artery disease) Qualifiers: Coronary Disease-Associated Artery/Lesion type: unspecified vessel or lesion type [place] vs. transplanted heart: [place] heart Associated angina: without angina Qualified Code(s): I25.10 - Atherosclerotic heart disease of [place] coronary artery without angina pectoris Coronary atherosclerosis of bypass graft Qualifiers: [place] vs. transplanted heart: [place] heart Associated angina: angina presence unspecified Qualified Code(s): I25.810 - Atherosclerosis of coronary artery bypass graft(s) without angina pectoris Disposition: Admitted As Inpatient Attestation: On 09/25/20, the high probability of a clinically significant, sudden or life threatening deterioration of the following system(s) required my full and direct attention, intervention and personal management. The time I documented below is in addition to time spent performing reported procedures but includes the following listed in this critical care notation. Medical Decision Making - [place] Inquiry Pt receiving controlled substance: No - Lab Data Result diagrams: 09/25/20 18:24 09/25/20 18:24 <Dennis Rosas - Last Filed: 09/25/20 20:18> - Medical Records Medical records reviewed: Yes: I reviewed the patient's medical records. - Lab Data Lab results reviewed: Yes: I reviewed the patient's lab results. Result diagrams: 09/25/20 18:24 09/25/20 18:24 - Radiology Data #1 Image(s): Chest Image Reviewed: Yes I reviewed the patient's radiology image Preliminary Findings: Abnormal (nonspecific) - CT Data CT Scan: Chest Time Received: 22:[address] Reviewed: Yes: I have viewed the radiologist's interpretation Preliminary Findings: Abnormal (see report) <ShaniquaCedric S - Last Filed: 09/25/20 22:40> Vital Signs: 09/25/20 19:29 09/25/20 19:30 09/25/20 20:00 Temperature 99.7 F H Temperature Source Rectal Pulse Rate [Right] 97 H 100 H 102 H Respiratory Rate 24 17 17 Blood Pressure [Right Arm] 110/74 127/79 123/75 Blood Pressure Mean [Right Arm] 86 95 91 Blood Pressure Source [Right Arm] Automatic Cuff Automatic Cuff Automatic Cuff Blood Pressure Position [Right Arm] Supine Supine Supine 02 Sat by Pulse Oximetry 94 L 94 L 95 Oxygen Delivery Method Room Air Nasal Cannula Nasal Cannula Oxygen Flow Rate (LPM) 2 2 09/25/20 20:30 09/25/20 21:00 09/25/20 21:30 Temperature Temperature Source Pulse Rate [Right] 95 H 98 H 80 Respiratory Rate 15 17 17 Blood Pressure [Right Arm] 118/70 119/74 157/79 H Blood Pressure Mean [Right Arm] 86 89 105 Blood Pressure Source [Right Arm] Automatic Cuff Automatic Cuff Automatic Cuff Blood Pressure Position [Right Arm] Supine Supine Supine 02 Sat by Pulse Oximetry 96 98 98 Oxygen Delivery Method Nasal Cannula Nasal Cannula Nasal Cannula Oxygen Flow Rate (LPM) 2 2 2 09/25/20 22:00 Temperature Temperature Source Pulse Rate [Right] 114 H Respiratory Rate 18 Blood Pressure [Right Arm] 125/57 L Blood Pressure Mean [Right Arm] 79 Blood Pressure Source [Right Arm] Automatic Cuff Blood Pressure Position [Right Arm] Supine 02 Sat by Pulse Oximetry
--- NOTE | 2020-09-25 19:26 | XR_ITS ---
PROCEDURE: XR CHEST PORTABLE CLINICAL HISTORY: AMS, covid COMPARISON: CR XR CHEST PORTABLE from 09/16/2019 CR XR CHEST PORTABLE from 09/27/2019 CR XR CHEST PORTABLE from 09/29/2019 FINDINGS: Prior CABG. Bipolar pacemaker is present from left subclavian approach. Atelectatic and/or fibrotic changes are present in the left lower lobe and have progressed or developed since 09/29/2019 No acute bony abnormalities. IMPRESSION: Left lower lobe atelectasis and/or fibrotic changes which are somewhat worse. Dictated by: Camilo Bourgeois MD 09/27/2020 14:45 Camilo Bourgeois MD in [place] 09/27/2020 14:45
--- NOTE | 2020-09-25 19:26 | ECG_ITS ---
APPROVED REPORT Exam: Resting ECG HR:99 bpm ECG Measurements Heart Rate 99 AXES QRSd 112 QRS -42 QT 398 T 10 QTc 510 Conclusion Accelerated Junctional rhythm Left axis deviation Incomplete right bundle branch block Possible Lateral infarct, age undetermined Prolonged QT Abnormal ECG Electronically signed by : Mejia Nicholson, 09/26/2020 06:49:06
[2020-09-25 19:38] LABS: ABG HCO3 23.2 mmhg (22.0-26.0); ABG Oxygen Saturation 93 % (90-100); ABG PCO2 35.4 mmhg (35.0-45.0); ABG PH 7.44 mmol/L (7.35-7.45); ABG PO2 67.5 mmhg (80-100); ABG TCO2 24.3 mmhg (23-27); Allen's Test Y; Oxygen R/A %; Source R/R
[2020-09-25 19:41] LABS: Basophils % 0.3 % (0.1-2.0); Eosinophils # 0.3 K/mm3 (0.0-0.4); Eosinophils % 3.6 % (0.1-12.0); Hematocrit 46.3 % (42.0-52.0); Hemoglobin 15.1 g/dL (14.1-18.0); Lymphocytes # 1.8 K/mm3 (0.7-4.5); Mean Corpuscular HGB Conc 32.6 g/dL (31.8-35.4); Mean Corpuscular Hemoglobin 30.5 pg (27.0-31.2); Mean Corpuscular Volume 93.6 fl (80-94); Mean Platelet Volume 7.8 fl (7.4-10.4); Monocytes # 0.6 K/mm3 (0.1-1.0); Monocytes % 6.7 % (1.7-9.3); Neutrophils # 6.1 K/mm3 (1.8-7.8); Neutrophils % 69.4 % (37.0-80.0); Platelet Count 153 K/mm3 (142-424); Red Blood Count 4.95 M/mm3 (4.60-6.20); Red Cell Distribution Width 14.3 % (11.5-17.5); White Blood Count 8.8 K/mm3 (4.8-10.8)
[2020-09-25 19:47] LABS: Alanine Aminotransferase 16 U/L (12-78); Albumin Level 4.1 g/dl (3.5-5.0); Albumin/Globulin Ratio 1.5 (1.1-1.8); Alkaline Phosphatase 131 U/L (38-126); Aspartate Amino Transferase 27 U/L (17-59); Bilirubin,Total 0.8 mg/dl (0.2-1.3); Blood Urea Nitrogen 31 mg/dl (9-20); Calcium 9.6 mg/dl (8.4-10.2); Creatinine Clearance Estimated 50 mL/min (50-200); Estimated Glomerular Filt Rate 42 ml/min (>60); GFR (African American) 51 ML/MIN (>60); Globulin 2.8 g/dL (1.3-3.2); Glucose 115 mg/dl (74-100); Total Protein,Serum 6.9 g/dl (6.3-8.2)
[2020-09-25 19:58] LABS: Troponin I 0.02 ng/ml (0.00-0.034)
[2020-09-25 20:02] LABS: Coronavirus 19 IgG Antibody Positive (Negative); Coronavirus 19 IgM Antibody Negative (Negative)
[2020-09-25 20:03] LABS: Microscopic, Urine URINE MICROSCOPIC (MICROSCOPIC)
[2020-09-25 20:13] LABS: Anion Gap 10.6 mEq/L (5-15); Carbon Dioxide 29 mmol/L (22.0-30.0); Chloride 118 mmol/L (98-107); Potassium 3.6 mmoL/L (3.5-5.1)
[2020-09-25 20:14] LABS: Sodium 154 mmol/L (136-145)
[2020-09-25 20:19] LABS: Appearance,Urine CLEAR (Clear); Bilirubin,Urine Negative (Negative); Blood, Urine Negative (Negative); Color,Urine YELLOW (Yellow); Glucose,Urine (UA) Negative (Negative); Ketones,Urine Negative (Negative); Leukocyte Esterase,Urine TRACE (Negative); Nitrate,Urine Negative (Negative); PH,Urine 5.5 (5.0-8.5); Protein,Urine Negative (Negative); Specific Gravity, Urine >= 1.030 (1.005-1.030); Urobilinogen,Urine 0.2 EU/dl (0.2)
[2020-09-25 20:20] LABS: INR 1.93 (0.9-1.1); Prothrombin Time 20.2 seconds (9.4-11.8)
--- NOTE | 2020-09-25 20:22 | CT_ITS ---
PROCEDURE: CT ANGIO CHEST Referring Doctor: Cedric Mcgovern Patient Age:80Y CLINCIAL INDICATION: SOA post COVID COMPARISON: CR XR CHEST PORTABLE from 09/29/2019 CR XR CHEST PORTABLE from 09/25/2020 TECHNIQUE: IV Contrast: 70ML Isovue 370 Helical axial images obtained with with thick slab volume MIP sagittal and coronal reformats performed by textile technologist at separate CT workstation. All CT scans at the facility use one or more dose reduction, viz: automated exposure control, ma/kV adjustment per patient size (including targeted exams where dose is matched to indication, i.e. head), or iterative reconstruction technique. FINDINGS: PULMONARY ARTERIES: There is good enhancement but there is motion artifact which limits the study towards the lung bases The main and central pulmonary arteries appear normal with no evidence of PE of central vessels. The central pulmonary arteries appear to, at and and through the hilar regions bilaterally. However there is motion artifact of lower lobes bilaterally which creates some inhomogeneous appearance at pulmonary arteries and limits the study towards the lung bases.-I favor we are viewing streak artifact rather than definite pulmonary emboli but is difficult to exclude some small pulmonary emboli at the smaller branch vessels towards the lung bases-5th order and possibly 4th order vessels in question.. Small pulmonary emboli in the lower lobe segmental branches were significant concern on the preliminary v RC report and would concur. AORTA: No acute finding. No significant aneurysm, ascending aorta measures the 3. 8 cm maximum diameter.. No acute findings. No thoracic aortic aneurysm or dissection evident LUNGS: Which appears dependent atelectasis is seen at lung ruano bilaterally.. Doubt early infiltrate but difficult to totally exclude particularly at the left infrahilar region and posterior lung bases. There is some minimal linear scarring at and atelectasis at the superior segment of the left upper lobe PLEURAL SPACES: No significant effusion. No evidence of pneumothorax. HEART: Mild cardiomegaly. Extensive coronary artery calcification and stents with CAD. Prior CABG... No significant pericardial effusion. Pacemaker with atrial and ventricular leads yielding some minor streak artifact... No no good evidence of right heart strain 1 MEDIASTINAL AND HILAR STRUCTURES: No significant hilar no mediastinal or hilar mass evident. No dominant adenopathy only a few small nodes mediastinum. BONY STRUCTURES: Dense sclerotic focus at the inferior right glenoid. Curious feature could not totally exclude a blastic lesion but no expansion.. Several old healed rib fractures bilaterally.. Moderate multi level degenerative changes spine noted LYMPH NODES: No significant. Streak artifact from arms. There is gynecomastia bilaterally most evident at the left breast enlarged lymph nodes evident. UPPER ABDOMEN: Unremarkable. IMPRESSION: Respiratory motion limits the study towards the lung bases and may account for the inhomogeneous appearance,-. There is moderate concern regarding a few small peripheral emboli towards small vessels of lower lobes bilaterally. Would generally concur with V [facility] report in this regard No right heart strain nor other findings of concern. Central pulmonary arteries and hilar regions through hilar regions and just beyond appears satisfactory bilaterally Atelectasis and dependent atelectasis at the lung ruano bilaterally most likely accounts for the current appearance at lung ruano bilaterally. No definitive pneumonia but difficult to exclude early infiltrate particularly the left infrahilar region-favor atelectasis. No pleur
[2020-09-25 20:23] LABS: Squamous Epithelial Cell,Urine Occasional #/hpf (0-5)
[2020-09-25 20:25] LABS: NT Pro Brain Natriuretic Pep. 325 pg/mL (0-450)
--- NOTE | 2020-09-25 20:46 | PC.NURSE ---
pt gone to ct
--- NOTE | 2020-09-25 22:04 | PC.NURSE ---
speaking to dr blake at this time.
--- NOTE | 2020-09-25 22:43 | PC.NURSE ---
Updated Valerio N.HLisa and spoke with Carolyn about pt's admission and DX
--- NOTE | 2020-09-25 22:46 | PC.NURSE ---
Pt was able to eat a sandwich and drink a soda. Pt awake and alert and asking appropriate questions.
[2020-09-25 22:50] LABS: Troponin I 0.03 ng/ml (0.00-0.034)
--- NOTE | 2020-09-25 23:28 | PC.NURSE ---
PT ARRIVED TO THE FLOOR VIA STRETCHER FROM ED W/STAFF [id number]
[2020-09-26] VITALS: BP 149/79; PULSE 80; PULSE 89; RESP 16; TEMP 36.9; O2SAT 96; BMI 29.8
[2020-09-26 02:06] LABS: Troponin I 0.03 ng/ml (0.00-0.034)
[2020-09-26 04:00] VITALS: BP 149/77; PULSE 70; PULSE 93; RESP 19; TEMP 36.4; O2SAT 94
[2020-09-26 04:47] VITALS: BMI 29.5
--- NOTE | 2020-09-26 05:53 | PC.NURSE ---
No acute changes. Pt has rested well since arrival to floor. No complaints. VSS. Pt remains on RA. Rhonchi and crackles noted to lung ruano. Pt turned and repositioned. Medication administered per oct. Call light within reach. Safety measures in place. Will continue to monitor.
[2020-09-26 07:05] LABS: Basophils % 0.4 % (0.1-2.0); Eosinophils # 0.3 K/mm3 (0.0-0.4); Eosinophils % 4.1 % (0.1-12.0); Hematocrit 40.5 % (42.0-52.0); Lymphocytes # 1.1 K/mm3 (0.7-4.5); Lymphocytes % 14.4 % (10-50); Mean Corpuscular HGB Conc 31.4 g/dL (31.8-35.4); Mean Corpuscular Hemoglobin 29.6 pg (27.0-31.2); Mean Corpuscular Volume 94.1 fl (80-94); Mean Platelet Volume 7.9 fl (7.4-10.4); Monocytes # 0.6 K/mm3 (0.1-1.0); Neutrophils # 5.6 K/mm3 (1.8-7.8); Neutrophils % 73.1 % (37.0-80.0); Platelet Count 122 K/mm3 (142-424); Red Cell Distribution Width 14.5 % (11.5-17.5); White Blood Count 7.7 K/mm3 (4.8-10.8)
[2020-09-26 07:14] LABS: Anion Gap 9.3 mEq/L (5-15); Blood Urea Nitrogen 24 mg/dl (9-20); Carbon Dioxide 24 mmol/L (22.0-30.0); Creatinine Clearance Estimated 70 mL/min (50-200); Estimated Glomerular Filt Rate 58 ml/min (>60); GFR (African American) 71 ML/MIN (>60); Glucose 102 mg/dl (74-100); Magnesium 1.9 mg/dl (1.6-2.3); Potassium 3.3 mmoL/L (3.5-5.1)
[2020-09-26 07:17] LABS: Calcium 8.6 mg/dl (8.4-10.2); Chloride 122 mmol/L (98-107); Sodium 152 mmol/L (136-145)
[2020-09-26 07:21] LABS: Hemoglobin 12.7 g/dL (14.1-18.0)
--- NOTE | 2020-09-26 07:42 | PC.NURSE ---
notified about critical lab NA+ [id number].
[2020-09-26 08:00] VITALS: BP 159/89; PULSE 70; RESP 16; TEMP 36; O2SAT 97; O2SAT 99
--- NOTE | 2020-09-26 09:28 | HMH.HP ---
*Admission Date: 09/26/20 *Chief complaint: change in mental status *History of present illness: this patient was sent from [facility] in by ambulance from [facility]. Reportedly was unresponsive. Reportedly recently diagnosed with COVID-19. The patient is awake here and able to answer questions. Denies pain. Denies trouble breathing. Just states that he does not feel so good. Only able to obtain limited history from him. H/O dementia. (Dennis Rosas) pt was found to have pul emboli despite coumadin and was admitted for treatment pt was known covid-19 at [facility] History I have reviewed the patient's past medical history: Yes Medical History: Reports:: Atherosclerotic Heart Disease, Atrial Fibrillation, Chronic Obstructive Pulmonary Disease (COPD), Coronary Artery Disease, Cerebrovascular Accident, Dementia, Hyperlipidemia, Hypertension, Internal Pacemaker Denies:: Cancer, Diabetes Mellitus Type 1, Diabetes Mellitus Type 2, MRSA *Have you ever received a pneumonia vaccine?: Yes *Have you received a flu vaccine this season?: Yes Other Surgeries: Yes: CABG, Cardiac Surgery, Pacemaker, Other (Eye surgery) Amputation: No - *Social History Smoking Status: Unknown if ever smoked Alcohol Intake: never Alcohol Intake Frequency:: other Substance Use Type: denies use *Occupational Status:: retired Housing: long term Household Members: caregiver *Travel in the last 8 weeks: None Family Hx:: Unable to obtain Review of Systems - Review of Systems Review of systems:: pertinent systems reviewed and negative unless documented below - Constitutional Denies fever(s) - Eyes Denies change in vision - ENT Denies sore throat - *Cardiovascular Reports shortness of breath, Denies chest pain at rest - *Respiratory Denies cough - *Gastrointestinal Denies abdominal pain - *Genitourinary Denies difficulty urinating - *Musculoskeletal Denies joint pain - Integumentary/Breasts Denies rash - *Neurologic Denies seizure-like activity, Denies localized weakness - Psychiatric Reports memory loss Meds Home Medications Medication Instructions Recorded Confirmed Type atorvastatin 20 mg tablet 20 mg PO HS tab 11/27/17 09/26/20 History tamsulosin 0.4 mg capsule 0.4 mg PO HS 02/14/18 09/26/20 History Tolterodine Tartrate [Detrol LA] 4 mg PO HS 05/22/18 09/26/20 History Donepezil HCl [Aricept 5mg 5 mg PO HS 09/27/18 09/26/20 History Tablet] Metoprolol Tartrate [Lopressor 12.5 mg PO BID 09/16/19 09/26/20 History 25mg tablet] Warfarin Sodium 2.5 mg PO SUTUWETHSA 09/16/19 09/26/20 History Warfarin Sodium [Coumadin 5mg 5 mg PO MOFR 09/16/19 09/26/20 History tablet] Acetaminophen 500 mg PO Q6H PRN #30 tab 09/27/19 09/26/20 Rx Carboxymethylcellulose Sodium 1 drop OP TID 09/29/19 09/26/20 History [Artificial Tears] Cholecalciferol (Vitamin D3) 1,250 mcg PO DAILY 09/29/19 09/25/20 History [Vitamin D3] Folic Acid/Vit B Complex and C 0.8 mg PO DAILY 09/29/19 09/26/20 History [Evie-Constantin Tablet] Omeprazole [Omeprazole 20mg Tab] 20 mg PO HS 09/25/20 09/26/20 History Sertraline HCl [Zoloft] 50 mg PO DAILY 09/25/20 09/26/20 History ondansetron HCL [Ondansetron 4mg 4 mg PO Q6HP PRN 09/25/20 09/26/20 History tab*] risperiDONE [Risperdal 0.5mg 0.5 mg PO BID 09/26/20 09/26/20 History tablet] Allergies Allergy/AdvReac Type Severity Reaction Status Date / Time No Known Allergies Allergy Verified 05/03/20 21:41 Exam Vital signs and Labs for Last 24 Hours: Temp Pulse Resp BP Pulse Ox 96.8 F L 70 16 159/89 H 99 09/26/20 08:00 09/26/20 08:00 09/26/20 08:00 09/26/20 08:00 09/26/20 08:00 Laboratory Results - last 24 hr 09/25/20 19:24: WBC 8.8, RBC 4.95, Hgb 15.1, Hct 46.3, MCV 93.6, MCH 30.5, MCHC 32.6, RDW 14.3, Plt Count 153, MPV 7.8, Neut % (Auto) 69.4, Lymph % (Auto) 20.0, [place] % (Auto) 6.7, Eos % (Auto) 3.6, Baso % (Auto) 0.3, Neut # (Auto) 6.1, Lymph # (Auto) 1.8
[2020-09-26 12:00] VITALS: BP 147/76; PULSE 70; RESP 18; TEMP 35.6; O2SAT 98
--- NOTE | 2020-09-26 15:01 | P.CONPHA_ITS ---
[facility] Pharmacy VTE Monitoring - Patient Demographics Admission date: 09/26/20 Report Date: 09/26/20 Time: 15:01 Allergies/Adverse Reactions: Patient Allergies No Known Allergies Allergy (Verified 05/03/20 21:41) Height: 1.83 m Weight: 99 kg Patient Problems: Current Active Problems Pulmonary embolism (Acute) KARMEN (acute kidney injury) (Acute) Hypernatremia (Acute) UTI (urinary tract infection) (Acute) Altered mental status (Acute) Pacemaker (Acute) Overweight (BMI 25.0-29.9) (Chronic) CAD (coronary artery disease) (Chronic) Coronary atherosclerosis of bypass graft (Chronic) - VTE Risk Labs: VTE Related Lab Results Hgb 12.7 g/dL (14.1-18.0) L D 09/26/20 06:55 Hct 40.5 % (42.0-52.0) L 09/26/20 06:55 Plt Count 122 K/mm3 (142-424) L 09/26/20 06:55 PT 20.2 seconds (9.4-11.8) H 09/25/20 19:24 INR 1.93 (0.9-1.1) H 09/25/20 19:24 BUN 24 mg/dl (9-20) H 09/26/20 06:55 Creatinine 1.20 mg/dl (0.66-1.25) D 09/26/20 06:55 Estimated Creat Clear 70 mL/min (50-200) 09/26/20 06:55 VTE Risk Level: Moderate Risk - Prophylaxis Types of VTE Prophylaxis: TEDS Knee High, Pharmacological Location of Applied Device: Bilateral Lower Extremeties (CHRISTOFER HOSE ORDERED) Pharmacologic Type: Other (XARELTO)
--- NOTE | 2020-09-26 15:50 | PC.NURSE ---
Patient is resting in bed. Neuro: Alert and oriented to name. Reports he is in a dr's office . Cardiac: Paced. Normotensive. Room air. Skin is c/d/i. Mepelix applied to saccrum to prevent dti. Q2 turn schedule implemented. No visible skin issues. Patient given a full bed bath today. GI: patient needs assistance during meals, total feed. Patient is on honey thick and pureed foods. Has eaten roughly half of his breakfast and lunch. : fischer catheter. Adequate urine output. WIll continue to monitor.
[2020-09-26 16:00] VITALS: BP 121/68; PULSE 70; RESP 15; TEMP 36.1; O2SAT 97
[2020-09-26 20:00] VITALS: BP 154/94; PULSE 70; PULSE 80; RESP 22; TEMP 36.7; O2SAT 96
[2020-09-27] VITALS (13 sets, daily range): BP systolic 111–153; BP diastolic 47–84; PULSE 60–76; RESP 17–22; TEMP 36.6–36.9; O2SAT 93–99; BMI 30.4
--- NOTE | 2020-09-27 | IR_ITS ---
APPROVED REPORT Patient Location: Inpatient Provisioning Specialist: ANGEL Toribio RT (R) PROCEDURES Right femoral vein access Right iliofemoral venous venogram Right heart catheterization Catheter placement in the main pulmonary artery Bilateral pulmonary artery angiogram INDICATION Multiple pulmonary emboli both proximal and distal with RV strain on echocardiogram Informed consent was obtained prior to the procedure. COMPLICATIONS NONE Estimated Blood Loss: LESS THAN 10 ML TECHNIQUE 1% lidocaine used anesthetize the right groin the right femoral vein was accessed via the Salinger technique and a 5 Sinhala sheath was placed in the right femoral vein. The wire would not easily traverse the iliofemoral venous system therefore retrograde venography was performed. The wire was then used to negotiate the tortuosity. Under fluoroscopic guidance an angled pigtail catheter was advanced into the main pulmonary artery and pulmonary artery angiography was performed. Following this the catheter was then attached to an arterial transducer and right heart catheterization was performed. The apparatus was removed the patient was transferred to the postop holding her stable condition for sheath removal ANGIOGRAPHIC RESULTS The right iliofemoral venous system is patent. There is a proximal eccentric 40% lesion which appears to be more tortuosity rather than intraluminal obstruction The main pulmonary artery is widely patent The right pulmonary artery is widely patent as are the segmental and subsegmental branches with no angiographic evidence of pulmonary embolism The left pulmonary arteries widely patent as are the segmental and subsegmental branches with no angiographic evidence of pulmonary embolism Pulmonary artery pressure 28/15 mmHg IMPRESSION No angiographic evidence of pulmonary embolism Regional wall motion abnormality involving the right ventricle which is possibly secondary to Covid myocarditis or possible pacemaker induced right ventricular functional defect PLAN 1. Continue with Xarelto 15 mg twice daily for 3 weeks as well as standard dose for at least 6 months for documented pulmonary emboli 2. Treat Covid symptomatically Electronically signed by : Kayden Mancera, 09/27/2020 12:36:57
--- NOTE | 2020-09-27 03:24 | PC.NURSE ---
No acute changes. Pt is alert to self and place. He is currently awake and sitting up in bed. No complaints. Pt is not in distress. VS have remained stable. Lungs noted to have rhonchi to anterior upper lobes. He remains on RA. O2 sat currently 96%. Medication administered per oct. F/C draining to bedside with dark yellow urine. Call light within reach. Safety measures in place. No other concerns at this time. Will continue to monitor.
--- NOTE | 2020-09-27 07:51 | CA_ITS ---
APPROVED REPORT Bilateral Lower Extremity Venous Study for Bending Roll Hand: CN Indications possible dvt Findings Technically limited exam due to dementia. Color flow duplex of the left lower extremity demonstrates no evidence of superficial venous thrombophlebitis. Color flow duplex of the right lower extremity demonstrates no evidence of superficial venous thrombophlebitis. Conclusion Technically limited exam due to dementia. Color flow duplex of the left lower extremity demonstrates no evidence of superficial venous thrombophlebitis. Color flow duplex of the right lower extremity demonstrates no evidence of superficial venous thrombophlebitis. Electronically signed by : Camilo Bourgeois MD 09/27/2020 16:14:21
--- NOTE | 2020-09-27 08:00 | CA_ITS ---
APPROVED REPORT EXAM: Comprehensive 2D, Doppler, and color-flow Echocardiogram Cardiac Sonographer: Jeannette Patten RCS, RV S Ht: 5 ft 11 in Wt: 210lbs BSA: 2.15 BP: 136/69 mmHg Indications: COVID-19, AMS, ASCVD-HX OHS, COPD, CVA. Dementia Echo Enhancing Agent Comments: Technically limited due to pt inability to cooperate/ be postiioned. Poor acoustics throughout exam. 2D Dimensions IVSd 1.24 cm M: 0.6-1.2 LVEF (Visual) 67.10 % PWd 1.20 cm M: 0.6 - 1.2 LVDd 5.30 cm M: 4.2 - 5.9 LVDs 3.31 cm M: 2.5 - 4.0 Aortic Root 3.77 cm M: 3.1 - 3.7 Left Atrium 4.10 cm M: 3.0 - 4.0 LVOT 1.86 cm (M/F) 1.5-2.5 M-Mode Dimensions LA Diam 3.79 cm (1.9-4.0) LVDd 5.13 cm (3.5-5.7) Ao Diam 4.23 cm (2.0-3.7) LVDs 3.79 cm (3.5-5.7) EF (Teich) 50.90% EPSs 1.21 cm FS 26.10% EDV (Teich) 125.50 mL TAPSE 1.32 (<1.7) ESV (Teich) 61.60 mL LV Diastology E Decel Time 293.00 (160-240 msec) E/A Ratio 0.9 MED E' 6.10 (< 7 cm/sec) MED A' 10.50 cm/s E'/MED E' Ratio 13.59 (>14) LAT E' 5.00 (<10 cm/sec) LAT A' 8.20 cm/s E/LAT E' Ratio 16.58 (>14) Aortic Valve AO Peak GR. 4.90 mmHg Mitral Valve MV E Max Javier. 83.00 (40-130 cm/s) MV A Velocity 97.00 (40-130 cm/s) E/A Ratio 0.85 MV Decel. Time 293.00 (160-240 ms) MV PHT 86.00 ms Pulmonary Valve PV Peak Velocity 66.00 (50-150 cm/s) Tricuspid Valve TR P. Velocity 237.00 cm/s RAP Estimate 10.00 mmHg RVSP 32.40 mmHg Left Ventricle Technically difficult study because of the patient fact in poor acoustic windows, repeat study with Definity contrast is recommended. Left atrium is mildly enlarged, left ventricle is normal size, mild concentric left ventricular hypertrophy, visually estimated ejection fraction is probably 45%, there appears to be hypokinesis involving the distal septum and apical wall, endocardial surfaces are poorly visualized, diastolic parameters are inconclusive. Right Ventricle Right atrium and right ventricle are mildly enlarged with normal contractility. Aortic Valve Aortic valve is thickened and calcified without Doppler evidence of aortic stenosis or aortic insufficiency. Mitral Valve Mitral valve is minimally thickened, there is mild mitral regurgitation. Tricuspid Valve Tricuspid valve is grossly normal, there is trace tricuspid regurgitation, tricuspid regurgitation jet velocity is inadequate for calculation of the right ventricular systolic pressure. Pulmonic Valve Pulmonic valve is poorly visualized. Great Vessels Aortic root is normal size. Pericardium No significant pericardial effusion noted. Conclusion 1. Technically difficult study because of the patient factors and poor acoustic windows, a repeat study with Definity contrast is recommended, probably visually estimated ejection fraction is 45% with segmental wall motion abnormality, diastolic parameters are inconclusive. 2. Thickened and calcified aortic valve without aortic stenosis or aortic insufficiency 3. Mild mitral and tricuspid regurgitation. 4. No significant pericardial effusion noted. Electronically signed by : Jovon Marie, 09/27/2020 21:33:13
[2020-09-27 08:46] LABS: Basophils % 0.3 % (0.1-2.0); Eosinophils # 0.3 K/mm3 (0.0-0.4); Eosinophils % 4.1 % (0.1-12.0); Hemoglobin 11.7 g/dL (14.1-18.0); Lymphocytes % 14.8 % (10-50); Mean Corpuscular HGB Conc 32.5 g/dL (31.8-35.4); Mean Corpuscular Hemoglobin 30.2 pg (27.0-31.2); Mean Corpuscular Volume 92.9 fl (80-94); Mean Platelet Volume 8.2 fl (7.4-10.4); Monocytes # 0.4 K/mm3 (0.1-1.0); Monocytes % 5.4 % (1.7-9.3); Neutrophils # 4.9 K/mm3 (1.8-7.8); Neutrophils % 75.3 % (37.0-80.0); Platelet Count 104 K/mm3 (142-424); Red Blood Count 3.87 M/mm3 (4.60-6.20); Red Cell Distribution Width 14.3 % (11.5-17.5); White Blood Count 6.5 K/mm3 (4.8-10.8)
[2020-09-27 08:50] LABS: Potassium 3.4 mmoL/L (3.5-5.1)
[2020-09-27 08:51] LABS: Chloride 123 mmol/L (98-107)
[2020-09-27 08:53] LABS: Blood Urea Nitrogen 20 mg/dl (9-20); Calcium 8.4 mg/dl (8.4-10.2); Carbon Dioxide 24 mmol/L (22.0-30.0); Creatinine Clearance Estimated 78 mL/min (50-200); Estimated Glomerular Filt Rate 65 ml/min (>60); GFR (African American) 78 ML/MIN (>60); Glucose 98 mg/dl (74-100); Sodium 150 mmol/L (136-145)
--- NOTE | 2020-09-27 09:48 | PC.NURSE ---
did report sodium result and chloride result to gretchen marin at time call was received. ordered to switch fluids to 1/2ns. spoke with blood bank laboratory technologist who stated to hold the xarelto this morning for now. would alert me if found out different.
--- NOTE | 2020-09-27 09:59 | SW/DCPLANNER ---
Addendum entered by Billie Maciel 09/28/20 09:51: I have updated Kalee with [facility] that this patient will return today. No further COVID testing is required. Addendum entered by Billie Maciel 09/27/20 10:03: Kalee has stated that no further COVID testing is needed at this time. Original Note: This patient currently resides at [facility]. I have spoke with Kalee at [facility] and patient is I[facility] level of care. I have informed Kalee that this patient will discharge back later today. Patient information will be faxed to Kalee.
--- NOTE | 2020-09-27 10:47 | HMH.CNCARD ---
History of Present Illness Consult date: 09/27/20 Requesting physician: Cedric Mcgovern Chief complaint: Pulmonary Emboli Additional Medical History:: 1. Pulmonary emboli (09/27/20) a. Verified on Chest CTA 2. Right ventricular strain (09/27/20) a. Echo (09/27/20) 3. Anticoagulant therapy a. Pt was started on Xarelto. 4. Chronic obstructive pulmonary disease 5. Coronary artery disease 6. Chronic atrial fibrillation 7. Permanent pacemaker 8. History of CABG 9. Essential hypertension 10. Hypertensive heart disease 11. Hyperlipidemia History of present illness: 80-year-old male admitted to [facility] with increased shortness of breath. Patient underwent chest CTA which revealed mild cardiomegaly, extensive coronary artery disease with stents. Few small pulmonary emboli were noted toward the small vessels of the lower lobe. Patient is alert and responsive. Patient is alert to person only. Patient denies shortness of breath. Patient is noted on no oxygen at this time. Xarelto 15 mg twice daily was started due to the pulmonary emboli. Patient has history of COPD, chronic atrial fib and history of CABG. Patient does have a permanent pacemaker in place. No swelling of the lower extremities noted denies palpitations or dizziness. Initial blood work revealed sodium elevated 152 with a potassium of 3.3. This is managed by PCP. Patient is positive for Covid. Covid protocols are in place. Patient was diagnosed with Covid in August. Patient is a resident of [facility]. Initial EKG revealed accelerated junctional rhythm, left axis deviation, incomplete right bundle branch block, prolonged QT abnormal ECG with a heart rate of 99 bpm. On child care centre director rhythm reveals paced. Discussed plan of care with Dr. Mancera. Preliminary echocardiogram revealed distal lateral RV apical wall motion hypokinesis which is classic of PE and RV strain. Discussed with patient the risk and benefits of undergoing a pulmonary angiogram with possible pulmonary emboli extraction due to RV strain. Drapery Cutter was notified. Thank you for allowing cardiology to participate in the care of this patient. [facility] History I have reviewed the patient's past medical history: Yes Medical History: Reports:: Atherosclerotic Heart Disease, Atrial Fibrillation, Chronic Obstructive Pulmonary Disease (COPD), Coronary Artery Disease, Cerebrovascular Accident, Dementia, Hyperlipidemia, Hypertension, Internal Pacemaker Denies:: Cancer, Diabetes Mellitus Type 1, Diabetes Mellitus Type 2, MRSA *Have you ever received a pneumonia vaccine?: Yes *Have you received a flu vaccine this season?: Yes Other Surgeries: Yes: CABG, Cardiac Surgery, Pacemaker, Other (Eye surgery) Amputation: No - *Social History Smoking Status: Unknown if ever smoked Alcohol Intake: never Alcohol Intake Frequency:: other Substance Use Type: denies use *Occupational Status:: retired Housing: long-term Household Members: caregiver *Travel in the last 8 weeks: None Family Hx:: Unable to obtain Meds Home Medications Medication Instructions Recorded Confirmed Type atorvastatin 20 mg tablet 20 mg PO HS tab 11/27/17 09/26/20 History tamsulosin 0.4 mg capsule 0.4 mg PO HS 02/14/18 09/26/20 History Tolterodine Tartrate [Detrol LA] 4 mg PO HS 05/22/18 09/26/20 History Donepezil HCl [Aricept 5mg 5 mg PO HS 09/27/18 09/26/20 History Tablet] Metoprolol Tartrate [Lopressor 12.5 mg PO BID 09/16/19 09/26/20 History 25mg tablet] Warfarin Sodium 2.5 mg PO SUTUWETHSA 09/16/19 09/26/20 History Warfarin Sodium [Coumadin 5mg 5 mg PO MOFR 09/16/19 09/26/20 History tablet] Acetaminophen 500 mg PO Q6H PRN #30 tab 09/27/19 09/26/20 Rx Carboxymethylcellulose Sodium 1 drop OP TID 09/29/19 09/26/20 History [Artificial Tears] Cholecalciferol (Vitamin D3) 1,250 mcg PO DAILY 09/29/19 09/25/20 History [Vitamin D3] Folic Acid/Vit B Complex and C 0.8 mg PO
--- NOTE | 2020-09-27 16:45 | HMH.ACPN2 ---
Internal Medicine - PN: Subj *Date: 09/27/20 *Time: 08:45 Interval history: pt laying in bed states no c/o Exam Vital signs and Labs for Last 24 Hours: Temp Pulse Resp BP Pulse Ox 97.8 F 70 18 149/72 H 95 09/27/20 08:00 09/27/20 16:00 09/27/20 16:00 09/27/20 16:00 09/27/20 15:00 Laboratory Results - last 24 hr 09/27/20 08:30: WBC 6.5, RBC 3.87 L, Hgb 11.7 L, Hct 36.0 L, MCV 92.9, MCH 30.2, MCHC 32.5, RDW 14.3, Plt Count 104 L, MPV 8.2, Neut % (Auto) 75.3, Lymph % (Auto) 14.8, [place] % (Auto) 5.4, Eos % (Auto) 4.1, Baso % (Auto) 0.3, Neut # (Auto) 4.9, Lymph # (Auto) 1.0, [place] # (Auto) 0.4, Eos # (Auto) 0.3, Baso # (Auto) 0.0 09/27/20 08:30: Sodium 150 H, Potassium 3.4 L, Chloride 123 H, Carbon Dioxide 24, Anion Gap Not Reportable, BUN 20, Creatinine 1.10, Estimated Creat Clear 78, Estimated GFR 65, Est GFR ( Amer) 78, Glucose 98, Calcium 8.4 I & O for Last 24 hours: Intake & Output 09/25/20 09/26/20 09/27/20 09/28/20 11:59 11:59 11:59 11:59 Intake Total 2340 / 2340 1440 / 1440 Output Total 300 / 300 550 / 550 Balance 2040 / 2040 890 / 890 Weight 218 lb 4.122 oz 224 lb 7 oz Microbiology Reports for the Last 24 Hours: Microbiology 09/25/20 19:24 Urine,Catheterized Urine Culture - Preliminary - Constitutional no acute distress, chronically ill appearing - *Routine HEENT Exam Head: Present: normocephalic Eye: Present: PERRL ENT: Present: mucous membranes moist - *Routine Neck Exam Present: supple. Absent: lymphadenopathy - *Routine Respiratory Exam Present: CTA bilaterally - *Routine Cardiovascular Exam Present: RRR Comments: pacemaker - *Routine Abdominal Exam Present: soft, normoactive bowel sounds. Absent: tenderness - *Routine Extremities Exam Present: normal capillary refill. Absent: cyanosis, clubbing, edema - *Routine Skin Exam Present: warm. Absent: rash - *Routine Neurological Exam Present: alert - Routine Psychiatric Exam Present: normal affect Assessment and Plan (1) KARMEN (acute kidney injury) Status: Acute Category: Medical Code(s): N17.9 - Acute kidney failure, unspecified (2) Altered mental status Status: Acute Qualifiers: Altered mental status type: disorientation Qualified Code(s): R40.0 - Somnolence Category: Medical Code(s): R41.82 - Altered mental status, unspecified (3) Hypernatremia Status: Acute Category: Medical Code(s): E87.0 - Hyperosmolality and hypernatremia (4) Pacemaker Status: Acute Category: Medical Code(s): Z95.0 - Presence of cardiac pacemaker (5) Pulmonary embolism Status: Acute Qualifiers: Pulmonary embolism type: unspecified Chronicity: acute Acute cor pulmonale presence: without acute cor pulmonale Qualified Code(s): I26.99 - Other pulmonary embolism without acute cor pulmonale Category: Medical Code(s): I26.99 - Other pulmonary embolism without acute cor pulmonale (6) UTI (urinary tract infection) Status: Acute Qualifiers: Urinary tract infection type: site unspecified Hematuria presence: without hematuria Qualified Code(s): N39.0 - Urinary tract infection, site not specified Category: Medical Code(s): N39.0 - Urinary tract infection, site not specified (7) CAD (coronary artery disease) Status: Chronic Qualifiers: Coronary Disease-Associated Artery/Lesion type: unspecified vessel or lesion type [place] vs. 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 transplanted heart: [place] heart Associated angina: angina presence unspecified Qualified Code(s): I25.810 - Atheroscl
--- NOTE | 2020-09-27 20:36 | PC.NURSE ---
patient has done well this shift. has slept most of day. remains paced and dual paced at times on monitor. appears at baseline. requires turns and to be fed. patient will be unresponsive at times and it takes a lot of prodding to get him to respond and smile at you. tolerated pureed diet and honey thick liquids. did well after procedure. no signs of bleeding to groin site. vitals stable.
[2020-09-28] VITALS: BP 130/67; PULSE 70; RESP 19; TEMP 36.6; O2SAT 96
[2020-09-28 04:00] VITALS: BP 120/66; PULSE 70; PULSE 80; RESP 21; TEMP 36.8; O2SAT 93
--- NOTE | 2020-09-28 04:10 | PC.NURSE ---
pt has had no acute changes. iv patent and infusing per order. fischer draining dark mohan urine. turned q2h. cath site dressing in place and is c/d/i. vss. call light in reach. will continue to monitor
[2020-09-28 05:23] VITALS: BMI 29.8
[2020-09-28 06:33] LABS: Basophils % 0.3 % (0.1-2.0); Eosinophils # 0.3 K/mm3 (0.0-0.4); Eosinophils % 4.3 % (0.1-12.0); Hematocrit 36.9 % (42.0-52.0); Hemoglobin 11.7 g/dL (14.1-18.0); Lymphocytes % 14.6 % (10-50); Mean Corpuscular HGB Conc 31.8 g/dL (31.8-35.4); Mean Corpuscular Hemoglobin 29.8 pg (27.0-31.2); Mean Corpuscular Volume 93.5 fl (80-94); Mean Platelet Volume 8.2 fl (7.4-10.4); Monocytes # 0.4 K/mm3 (0.1-1.0); Monocytes % 5.1 % (1.7-9.3); Neutrophils # 5.2 K/mm3 (1.8-7.8); Neutrophils % 75.7 % (37.0-80.0); Platelet Count 94 K/mm3 (142-424); Red Blood Count 3.94 M/mm3 (4.60-6.20); Red Cell Distribution Width 14.3 % (11.5-17.5); White Blood Count 6.9 K/mm3 (4.8-10.8)
[2020-09-28 06:40] LABS: Chloride 120 mmol/L (98-107); Potassium 3.4 mmoL/L (3.5-5.1); Sodium 149 mmol/L (136-145)
[2020-09-28 06:43] LABS: Anion Gap 7.4 mEq/L (5-15); Blood Urea Nitrogen 17 mg/dl (9-20); Calcium 8.6 mg/dl (8.4-10.2); Carbon Dioxide 25 mmol/L (22.0-30.0); Creatinine Clearance Estimated 77 mL/min (50-200); Estimated Glomerular Filt Rate 65 ml/min (>60); GFR (African American) 78 ML/MIN (>60); Glucose 85 mg/dl (74-100)
[2020-09-28 08:00] VITALS: BP 135/74; PULSE 70; PULSE 79; RESP 18; TEMP 36.7; O2SAT 97
--- NOTE | 2020-09-28 08:30 | HMH.DCSUM ---
General - General Admission date:: 09/25/20 Discharge date: 09/28/20 HPI HPI: this patient was sent from [facility] in by ambulance from [facility]. Reportedly was unresponsive. Reportedly recently diagnosed with COVID-19. The patient is awake here and able to answer questions. Denies pain. Denies trouble breathing. Just states that he does not feel so good. Only able to obtain limited history from him. H/O dementia. (Dennis Rosas) pt was found to have pul emboli despite coumadin and was admitted for treatment pt was known covid-19 at [facility] Hospital Course Hospital Course: 80-year-old male patient sent from [facility] per EMS for reported unresponsiveness. In the emergency department patient was alert and able to answer questions, denied pain or shortness of breath he only stated that he did not feel so good. Limited history was obtained from patient due to history of dementia. [facility] reports he was diagnosed in August with COVID-19. Patient is on Coumadin therapy for atrial fibrillation. Patient does have a history of COPD and CABG, he also has a permanent pacemaker in place. Chest CTA revealed small pulmonary emboli in both lower lobe segmental branches with significant concern on the pulmonary. Xarelto 15 mg twice daily was started then. Lab work in the emergency room revealed CBC unremarkable. Sodium 154, BUN 31, creatinine 1.6. Lactate was 1 UA was negative COVID-19 PCR positive, SARS-COV-2 IgG positive, SARS-COV-2 IgM negative 09/25/20 CXR: FINDINGS: Prior CABG. Bipolar pacemaker is present from left subclavian approach. Atelectatic and/or fibrotic changes are present in the left lower lobe and have progressed or developed since 09/29/2019 No acute bony abnormalities. IMPRESSION: Left lower lobe atelectasis and/or fibrotic changes which are somewhat worse. Dictated by: Bk, 09/25/20 Chest CTA: FINDINGS: PULMONARY ARTERIES: There is good enhancement but there is motion artifact which limits the study towards the lung bases The main and central pulmonary arteries appear normal with no evidence of PE of central vessels. The central pulmonary arteries appear to, at and and through the hilar regions bilaterally. However there is motion artifact of lower lobes bilaterally which creates some inhomogeneous appearance at pulmonary arteries and limits the study towards the lung bases.-I favor we are viewing streak artifact rather than definite pulmonary emboli but is difficult to exclude some small pulmonary emboli at the smaller branch vessels towards the lung bases-5th order and possibly 4th order vessels in question.. Small pulmonary emboli in the lower lobe segmental branches were significant concern on the preliminary v RC report and would concur. AORTA: No acute finding. No significant aneurysm, ascending aorta measures the 3. 8 cm maximum diameter.. No acute findings. No thoracic aortic aneurysm or dissection evident LUNGS: Which appears dependent atelectasis is seen at lung ruano bilaterally.. Doubt early infiltrate but difficult to totally exclude particularly at the left infrahilar region and posterior lung bases. There is some minimal linear scarring at and atelectasis at the superior segment of the left upper lobe PLEURAL SPACES: No significant effusion. No evidence of pneumothorax. HEART: Mild cardiomegaly. Extensive coronary artery calcification and stents with CAD. Prior CABG... No significant pericardial effusion. Pacemaker with atrial and ventricular leads yielding some minor streak artifact... No no good evidence of right heart strain 1 MEDIASTINAL AND HILAR STRUCTURES: No significant hilar no mediastinal or hilar mass evident. No dominant adenopathy only a few small nodes mediastinum. BONY STRUCTURES: Dense sclerotic focus at the inferior right glenoid. Curious feature could not totally exclude a blastic lesion but
== END 2020-09-28 11:13 | DRG 177 ==
LOC: ER 21:10 → 2ND 22:40
PROVIDERS: Emergency Medicine; Internal Medicine; Nurse Practitioner Family; Admitting Provider Emergency Medicine; Emergency Provider Emergency Medicine; PCP Emergency Medicine; Visit Provider Emergency Medicine
PROC: 4A023N6 Measurement of Cardiac Sampling and Pressure, Right Heart, Percutaneous Approach (ICD-10-PCS; principal; 2020-09-27 09:30)
DX: I26.94 Multiple subsegmental thrombotic pulmonary emboli without acute cor pulmonale; N17.9 Acute kidney failure, unspecified; I25.810 Atherosclerosis of coronary artery bypass graft(s) without angina pectoris; N39.0 Urinary tract infection, site not specified; I25.10 Atherosclerotic heart disease of native coronary artery without angina pectoris; I48.91 Unspecified atrial fibrillation; J44.9 Chronic obstructive pulmonary disease, unspecified; Z95.1 Presence of aortocoronary bypass graft; Z95.0 Presence of cardiac pacemaker; U07.1 COVID-19; Z79.01 Long term (current) use of anticoagulants
CPT/HCPCS: 36415; 71045; 71275; 75743; 80048; 80053; 81001; 82803; 83605; 83735; 83880; 84484; 85025; 85610; 86328; 87040; 87086; 87186; 93005; 93306; 93451; 93568; 93970; 96365; 96366; 96367; 99152; 99284; C1769; C1894; J1644; Q9966; Q9967; U0003

== ENCOUNTER 2020-10-12 11:02 | Emergency (ER) | payer MEDICARE, MEDICAID, SELFPAY ==
[2020-10-12 11:04] VITALS: BP 123/59; PULSE 78; RESP 18; TEMP 36.7; O2SAT 96; BMI 41.9
--- NOTE | 2020-10-12 11:40 | XR_ITS ---
PROCEDURE: XR CHEST PORTABLE CLINICAL HISTORY: gurgling in throat after eating. COMPARISON: CR XR CHEST PORTABLE from 09/27/2019 CR XR CHEST PORTABLE from 09/29/[address] ANGIO CHEST from 09/25/2020 CR XR CHEST PORTABLE from 09/25/2020 FINDINGS: Prior CABG. Bipolar pacemaker is present from left subclavian approach. The lungs are clear without infiltrates, suspicious nodules, or pleural effusions. Degenerative changes in the shoulder on both sides IMPRESSION: No acute findings. Dictated by: Cmailo Bourgeois MD 10/12/2020 12:27 Camilo Bourgeois MD in [place] 10/12/2020 12:27
--- NOTE | 2020-10-12 11:41 | HMH.EDGENADL ---
ED Disposition Clinical Impression: Congestion of upper airway Disposition: Home, Self-Care Condition on Discharge: Good Additional Instructions: Dr. Mcgovern will follow up. Referrals: Cedric Mcgovern MD [Primary Care Provider] - - Critical Care Critical Care Time: No Attestation: On 10/12/20, the high probability of a clinically significant, sudden or life threatening deterioration of the following system(s) required my full and direct attention, intervention and personal management. The time I documented below is in addition to time spent performing reported procedures but includes the following listed in this critical care notation. Medical Decision Making - [place] Inquiry Pt receiving controlled substance: No Vital Signs: 10/12/20 11:04 10/12/20 12:05 Temperature 98.0 F Temperature Source Oral Pulse Rate [Left Radial] 78 86 Respiratory Rate 18 Blood Pressure [Left Arm] 123/59 L 111/84 Blood Pressure Mean [Left Arm] 80 93 Blood Pressure Source [Left Arm] Manual Cuff/ Palpation Automatic Cuff Blood Pressure Position [Left Arm] Sitting Sitting 02 Sat by Pulse Oximetry 96 95 Oxygen Delivery Method Room Air Room Air - Lab Data Lab Results 10/12/20 11:18: WBC 10.0, RBC 4.35 L, Hgb 13.2 L, Hct 40.9 L, MCV 94.0, MCH 30.3, MCHC 32.3, RDW 14.8, Plt Count 204, MPV 7.9, Neut % (Auto) 83.5 H, Lymph % (Auto) 9.3 L, [place] % (Auto) 5.3, Eos % (Auto) 1.7, Baso % (Auto) 0.2, Neut # (Auto) 8.3 H, Lymph # (Auto) 0.9, [place] # (Auto) 0.5, Eos # (Auto) 0.2, Baso # (Auto) 0.0 10/12/20 11:18: Sodium 141, Potassium 3.9, Chloride 107, Carbon Dioxide 27, Anion Gap 10.9, BUN 18, Creatinine 1.50 H, Estimated Creat Clear 40, Estimated GFR 45 L, Est GFR ( Amer) 55 L, Glucose 135 H, Calcium 9.4, Total Bilirubin 0.8, AST 29, ALT 17, Alkaline Phosphatase 146 H, Total Protein 7.1, Albumin 4.0, Globulin 3.1, Albumin/Globulin Ratio 1.3 10/12/20 11:18: Lactate 2.1 Result diagrams: 10/12/20 11:18 10/12/20 11:18 Orders (Tests/Meds): ORDERS Category Date Time Status Blood Culture Stat Micro 10/12/20 11:18 Received - Radiology Data #1 Image(s): Chest Image Reviewed: Yes I reviewed the patient's radiology image, Yes I discussed the image results w/the radiologist Preliminary Findings: Normal/NAD - Physician Consults Physician Consulted: Shaniqua Time: 12:33 Reason -: Pt condition Comment/Response: [facility] He will follow-up the patient's issue with airway secretions. General Adult HPI - General Chief complaint: Recheck/Abnormal Lab/Rx Stated complaint: blood pressure, sent by Dr Mancera Time Seen by Provider: 10/12/20 12:15 Mode of Arrival: Wheelchair Limitations: No Limitations Description of Symptoms (Recalled from ER Triage Doc. by RN): Pt was in cardiology clinic, [facility] staff who was with pt at office visit states she noticed a gurgling sound iun pt throat during visit, states she asked cardiology staff about it and states she was told to have pt evaluated in the ER. Upon entered ER when staff who is present with pt calls nursing staff at [place], who states this gurlging sound is normal for pt after eating, states pt is on aspiration precautions. States they do still want pt evaluated for pneumonia. pt has no complaints, no distress noted - History of Present Illness HPI narrative: History obtained from patient and nursing director. She says he was here today for routine follow-up visit for cardiology. She says cardiology service felt that his blood pressure and heart were doing well but they were concerned because he was making a gurgling sound when he breathes. They were apparently concerned about aspiration and sent him to the emergency department. The imaging system administrator tells me that she has contacted [facility] staff and they state that the gurgling sound is normal for him after he eats. They feel he has trouble clearing secretions. Admin
[2020-10-12 11:54] LABS: Basophils % 0.2 % (0.1-2.0); Chloride 107 mmol/L (98-107); Eosinophils # 0.2 K/mm3 (0.0-0.4); Eosinophils % 1.7 % (0.1-12.0); Hematocrit 40.9 % (42.0-52.0); Hemoglobin 13.2 g/dL (14.1-18.0); Lymphocytes # 0.9 K/mm3 (0.7-4.5); Lymphocytes % 9.3 % (10-50); Mean Corpuscular HGB Conc 32.3 g/dL (31.8-35.4); Mean Corpuscular Hemoglobin 30.3 pg (27.0-31.2); Mean Platelet Volume 7.9 fl (7.4-10.4); Monocytes # 0.5 K/mm3 (0.1-1.0); Monocytes % 5.3 % (1.7-9.3); Neutrophils # 8.3 K/mm3 (1.8-7.8); Neutrophils % 83.5 % (37.0-80.0); Platelet Count 204 K/mm3 (142-424); Potassium 3.9 mmoL/L (3.5-5.1); Red Blood Count 4.35 M/mm3 (4.60-6.20); Red Cell Distribution Width 14.8 % (11.5-17.5); Sodium 141 mmol/L (136-145)
[2020-10-12 11:57] LABS: Alanine Aminotransferase 17 U/L (12-78); Albumin/Globulin Ratio 1.3 (1.1-1.8); Alkaline Phosphatase 146 U/L (38-126); Anion Gap 10.9 mEq/L (5-15); Aspartate Amino Transferase 29 U/L (17-59); Bilirubin,Total 0.8 mg/dl (0.2-1.3); Blood Urea Nitrogen 18 mg/dl (9-20); Carbon Dioxide 27 mmol/L (22.0-30.0); Creatinine Clearance Estimated 40 mL/min (50-200); Estimated Glomerular Filt Rate 45 ml/min (>60); GFR (African American) 55 ML/MIN (>60); Globulin 3.1 g/dL (1.3-3.2); Total Protein,Serum 7.1 g/dl (6.3-8.2)
[2020-10-12 11:58] LABS: Calcium 9.4 mg/dl (8.4-10.2); Glucose 135 mg/dl (74-100)
[2020-10-12 12:05] VITALS: BP 111/84; PULSE 86; O2SAT 95
[2020-10-12 12:06] LABS: Lactic Acid 2.1 mmol/L (0.7-2.1)
[2020-10-12 12:34] VITALS: BP 107/65; PULSE 74; O2SAT 95
[2020-10-12 13:04] VITALS: BP 110/70; PULSE 74; RESP 16; TEMP 36.9; O2SAT 98
[2020-10-12 15:50] LABS: Reflex Lactic Add Lactic Reflex
== END 2020-10-12 13:13 | disposition home or self-care (01) ==
PROVIDERS: Emergency Provider Emergency Medicine; PCP Emergency Medicine
DX: J98.8 Other specified respiratory disorders (principal); I25.10 Atherosclerotic heart disease of native coronary artery without angina pectoris; I48.91 Unspecified atrial fibrillation; J44.9 Chronic obstructive pulmonary disease, unspecified; F03.90 Unspecified dementia, unspecified severity, without behavioral disturbance, psychotic disturbance, mood disturbance, and anxiety; E78.5 Hyperlipidemia, unspecified; Z86.73 Personal history of transient ischemic attack (TIA), and cerebral infarction without residual deficits; I10 Essential (primary) hypertension; Z95.0 Presence of cardiac pacemaker
CPT/HCPCS: 71045; 80053; 83605; 85025; 87040; 99284

== ENCOUNTER 2021-03-03 23:56 | Emergency (ER) | payer OTHER, SELFPAY ==
[2021-03-03 23:54] VITALS: BP 123/75; PULSE 64; RESP 18; TEMP 36.6; O2SAT 99; BMI 29.2
[2021-03-04] VITALS (7 sets, daily range): BP systolic 98–137; BP diastolic 59–82; PULSE 61–80; RESP 16; TEMP 36.6; O2SAT 95–100
--- NOTE | 2021-03-04 00:04 | CT_ITS ---
PROCEDURE INFORMATION: Exam: CT Cervical Spine Without Contrast Exam date and time: 03/04/2021 12:04 AM Age: 81 years old Clinical indication: Injury or trauma; Fall; Blunt trauma; Injury date: 03/04/2021; Injury details: Fell hit frontal head TECHNIQUE: Imaging protocol: Computed tomography images of the cervical spine without contrast. Radiation optimization: All CT scans at this facility use at least one of these dose optimization techniques: automated exposure control; mA and/or kV adjustment per patient size (includes targeted exams where dose is matched to clinical indication); or iterative reconstruction. COMPARISON: CT CERVICAL SPINE WO CON 09/06/2019 5:43 PM FINDINGS: Bones/joints: Degenerative grade 1 anterolisthesis at C3-C4 and C4-C5, unchanged. Normal craniocervical junction alignment. No acute fracture. 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 Advanced discogenic and facet degenerative changes. Spinal stenosis at C5-C6. Multilevel foraminal stenosis. Lungs: Lung apices are normal. Soft tissues: Unremarkable. IMPRESSION: 1. No acute fracture. 2. Advanced degenerative spondylosis.
--- NOTE | 2021-03-04 00:04 | CT_ITS ---
PROCEDURE INFORMATION: Exam: CT Head Without Contrast Exam date and time: 03/04/2021 12:04 AM Age: 81 years old Clinical indication: Injury or trauma; Fall; Blunt trauma (contusions or hematomas); Without loss of consciousness; Injury date: 03/04/2021; Injury details: Fell and hit frontal area head TECHNIQUE: Imaging protocol: Computed tomography of the head without contrast. Radiation optimization: All CT scans at this facility use at least one of these dose optimization techniques: automated exposure control; mA and/or kV adjustment per patient size (includes targeted exams where dose is matched to clinical indication); or iterative reconstruction. COMPARISON: CT HEAD/BRAIN WO CON 09/29/2019 6:30 AM FINDINGS: Brain: There is advanced cerebral and cerebellar atrophy. Changes of chronic white matter microvascular disease are present. No signs of a recent infarction or hemorrhage. No midline shift or mass effect. Cerebral ventricles: There is ex vacuo ventricular enlargement without evidence of obstructive hydrocephalus. Paranasal sinuses: Visualized sinuses are clear. Mastoid air cells: Mastoid air cells are clear. Bones/joints: Unremarkable. No acute fracture. Soft tissues: Unremarkable. IMPRESSION: Atrophy and chronic white matter changes. No acute intracranial abnormality.
--- NOTE | 2021-03-04 00:04 | XR_ITS ---
PROCEDURE INFORMATION: Exam: XR Chest Exam date and time: 03/04/2021 12:04 AM Age: 81 years old Clinical indication: Chest wall pain; Prior surgery; Surgery type: Open heart; Additional info: Fall TECHNIQUE: Imaging protocol: XR of the chest. Views: 1 view. COMPARISON: CR XR CHEST PORTABLE 10/12/2020 12:08 PM FINDINGS: Tubes, catheters and devices: A cardiac pacemaker has been placed via the left subclavian approach. Lungs: See Heart/Mediastinum finding. Pleural spaces: There is no pleural effusion or pneumothorax. Heart/Mediastinum: There is hypoinflation with crowding of the mediastinal structures and bronchovascular bundles. There is mild cardiomegaly without overt congestive heart failure. Status post CABG. Bones/joints: The bones are demineralized. IMPRESSION: Hypoinflation with mild cardiomegaly.
--- NOTE | 2021-03-04 00:04 | XR_ITS ---
PROCEDURE INFORMATION: Exam: XR Pelvis Exam date and time: 03/04/2021 12:04 AM Age: 81 years old Clinical indication: Injury or trauma; Fall; Blunt trauma (contusions or hematomas); Bilateral; Pelvic region TECHNIQUE: Imaging protocol: XR pelvis. Views: 1 or 2 view. COMPARISON: CT ABDOMEN PELVIS W CON 09/16/2019 4:44 AM FINDINGS: Bones/joints: The osseous structures are demineralized but appear grossly intact without an acute fracture or dislocation. There is mild osteoarthritis in both hips. Soft tissues: There are findings suspicious for a large left indirect inguinal hernia with bowel gas and fecal debris projecting below the left obturator ring. Gastrointestinal tract: Multiple dilated air-filled bowel loops are also noted. A component of obstruction cannot be excluded. IMPRESSION: 1. No acute fracture or dislocation. 2. Findings suspicious for a large left indirect inguinal hernia which contains colon. An associated bowel obstruction cannot be excluded. Clinical correlation advised.
[2021-03-04 00:23] LABS: Basophils % 0.5 % (0.1-2.0); Eosinophils # 0.3 K/mm3 (0.0-0.4); Eosinophils % 4.7 % (0.1-12.0); Hematocrit 31.7 % (42.0-52.0); Hemoglobin 10.8 g/dL (14.1-18.0); Lymphocytes # 1.3 K/mm3 (0.7-4.5); Lymphocytes % 21.4 % (10-50); Mean Corpuscular HGB Conc 34.1 g/dL (31.8-35.4); Mean Corpuscular Hemoglobin 29.5 pg (27.0-31.2); Mean Corpuscular Volume 86.6 fl (80-94); Mean Platelet Volume 8.5 fl (7.4-10.4); Monocytes # 0.3 K/mm3 (0.1-1.0); Monocytes % 5.5 % (1.7-9.3); Neutrophils # 4.2 K/mm3 (1.8-7.8); Neutrophils % 67.9 % (37.0-80.0); Platelet Count 162 K/mm3 (142-424); Red Blood Count 3.66 M/mm3 (4.60-6.20); Red Cell Distribution Width 15.4 % (11.5-17.5); White Blood Count 6.1 K/mm3 (4.8-10.8)
[2021-03-04 00:28] LABS: Chloride 103 mmol/L (98-107); Sodium 137 mmol/L (136-145)
[2021-03-04 00:29] LABS: Potassium 3.6 mmoL/L (3.5-5.1)
[2021-03-04 00:31] LABS: Alanine Aminotransferase 14 U/L (12-78); Alkaline Phosphatase 120 U/L (38-126); Anion Gap 9.6 mEq/L (5-15); Aspartate Amino Transferase 26 U/L (17-59); Bilirubin,Total 0.3 mg/dl (0.2-1.3); Blood Urea Nitrogen 13 mg/dl (9-20); Carbon Dioxide 28 mmol/L (22.0-30.0); Creatinine Clearance Estimated 50 mL/min (50-200); Estimated Glomerular Filt Rate 42 ml/min (>60); GFR (African American) 51 ML/MIN (>60)
[2021-03-04 00:32] LABS: Albumin Level 3.5 g/dl (3.5-5.0); Albumin/Globulin Ratio 1.3 (1.1-1.8); Calcium 8.5 mg/dl (8.4-10.2); Globulin 2.7 g/dL (1.3-3.2); Glucose 98 mg/dl (74-100); Total Protein,Serum 6.2 g/dl (6.3-8.2)
--- NOTE | 2021-03-04 01:10 | HMH.EDFALL ---
ED Disposition Clinical Impression: Fall Qualifiers: Encounter type: initial encounter Qualified Code(s): W19.XXXA - Unspecified fall, initial encounter Contusion of head Qualifiers: Encounter type: initial encounter Contusion of head detail: scalp Qualified Code(s): S00.03XA - Contusion of scalp, initial encounter Inguinal hernia Qualifiers: Obstruction and gangrene presence: without obstruction or gangrene Laterality: unilateral Recurrence: not specified as recurrent Qualified Code(s): K40.90 - Unilateral inguinal hernia, without obstruction or gangrene, not specified as recurrent Disposition: Home, Self-Care Condition on Discharge: Good Instructions: How to Prevent Falls Additional Instructions: resume orders and see pcp for follow up Referrals: Cedric Mcgovern MD [Primary Care Provider] - - Critical Care Critical Care Time: No Attestation: On 03/03/21, the high probability of a clinically significant, sudden or life threatening deterioration of the following system(s) required my full and direct attention, intervention and personal management. The time I documented below is in addition to time spent performing reported procedures but includes the following listed in this critical care notation. Medical Decision Making - Medical Records Medical records reviewed: Yes: I reviewed the patient's medical records. - [place] Inquiry Pt receiving controlled substance: No Vital Signs: 03/03/21 23:54 03/04/21 00:30 03/04/21 01:00 Temperature 97.8 F Temperature Source Oral Pulse Rate 65 64 Pulse Rate [Right] 64 Respiratory Rate 18 Blood Pressure 116/59 L 98/69 L Blood Pressure [Right Arm] 123/75 Blood Pressure Mean [Right Arm] 91 02 Sat by Pulse Oximetry 99 100 99 Oxygen Delivery Method Room Air - Lab Data Lab results reviewed: Yes: I reviewed the patient's lab results. Lab Results 03/04/21 00:14: WBC 6.1, RBC 3.66 L, Hgb 10.8 L, Hct 31.7 L, MCV 86.6, MCH 29.5, MCHC 34.1, RDW 15.4, Plt Count 162, MPV 8.5, Neut % (Auto) 67.9, Lymph % (Auto) 21.4, [place] % (Auto) 5.5, Eos % (Auto) 4.7, Baso % (Auto) 0.5, Neut # (Auto) 4.2, Lymph # (Auto) 1.3, [place] # (Auto) 0.3, Eos # (Auto) 0.3, Baso # (Auto) 0.0, ESR 68 H 03/04/21 00:14: Sodium 137, Potassium 3.6, Chloride 103, Carbon Dioxide 28, Anion Gap 9.6, BUN 13, Creatinine 1.60 H, Estimated Creat Clear 50, Estimated GFR 42 L, Est GFR ( Amer) 51 L, Glucose 98, Calcium 8.5, Total Bilirubin 0.3, AST 26, ALT 14, Alkaline Phosphatase 120, C-Reactive Protein 18.7 H, Total Protein 6.2 L, Albumin 3.5, Globulin 2.7, Albumin/Globulin Ratio 1.3 Result diagrams: 03/04/21 00:14 03/04/21 00:14 Orders (Tests/Meds): ORDERS Category Date Time Status XR pelvis 1-2V Stat Exams 03/04/21 00:04 Taken - Radiology Data #1 Image(s): Chest, Pelvis Image Reviewed: Yes I reviewed the patient's radiology image Preliminary Findings: Normal/NAD - CT Data CT Scan: Head, C-Spine Time Received: 03:[address] Reviewed: Yes: I have viewed the radiologist's interpretation Preliminary Findings: No Fracture Seen Medical Decision Narrative: has no acute fx seen has reducible inguinal hernia Fall HPI - General Chief Complaint: Fall Stated Complaint: fall Time Seen by Provider: 03/04/21 00:00 Mode of Arrival: EMS Source of Information: Patient, EMS, Medical Record Limitations: No Limitations Description of Symptoms (Recalled from ER Triage Doc. by RN): custodial reports pt fell out of floor bed and hit head . pt c/o Mac - History of Present Illness HPI Narrative: fell at [facility] with head injury - no loc MD complaint: fall Onset (ago): hour(s) Fall from: out of bed Fall witnessed: no Place fall occurred: custodial/SNF Loss of consciousness: none Prolonged down time: no Symptoms prior to fall: none Context: tripped/slipped Location of injury: head, neck Severity: moderate Associated symptoms (after fall): denies - Related Data Home
[2021-03-04 02:19] LABS: Erythrocyte Sedimentation Rate 68 mm/hr (0-20)
[2021-03-04 02:41] LABS: C-Reactive Protein 18.7 mg/L (0-4)
== END 2021-03-04 04:16 | disposition home or self-care (01) ==
PROVIDERS: Emergency Provider Emergency Medicine; PCP Emergency Medicine
DX: S00.03XA Contusion of scalp, initial encounter (principal); W01.0XXA Fall on same level from slipping, tripping and stumbling without subsequent striking against object, initial encounter; Y92.122 Bedroom in nursing home as the place of occurrence of the external cause; K40.90 Unilateral inguinal hernia, without obstruction or gangrene, not specified as recurrent; I48.91 Unspecified atrial fibrillation; I25.10 Atherosclerotic heart disease of native coronary artery without angina pectoris; I10 Essential (primary) hypertension; Z95.0 Presence of cardiac pacemaker; F03.90 Unspecified dementia, unspecified severity, without behavioral disturbance, psychotic disturbance, mood disturbance, and anxiety
CPT/HCPCS: 70450; 71045; 72125; 72170; 80053; 85025; 85651; 86140; 99283

== ENCOUNTER → 2021-03-29 06:03 | Outpatient (CLI) | payer OTHER, MEDICARE, MEDICAID, SELFPAY ==
--- NOTE | 2021-03-29 06:05 | CA_ITS ---
APPROVED REPORT Exam: Pharmacologic Technologist: Saige Dickson, Ht: 5 ft 9 in Wt: 206 lbs BSA: 2.09 m2 HR: 72 bpm BP: 141/80 mmHg Rhythm: ATRIAL PACED RHYTHM,RBBB Medical History Medical History: HTN Medications: Omeprazole,,,,, Metoprolol,,,,, TAMSULOSIN,,,,, Tylenol,,,,, Vit D3,,,,, Vit C,,,,, Zofran,,,,, RIvaROXABAN,,,,, Cardiac Risk Factors: HTN Stress Test Details Test: LEXISCAN HR Resting HR: 71 bpm Max Heart Rate (APMHR): 140.851703 bpm Max HR Achieved: 81 bpm Target HR (85% APMHR): 119.432374 bpm % of APMHR: 57.86 Recovery HR: 69 bpm BP Resting BP: 141.0/80.0 mmHg Max BP: 141.0/80.0 mmHg Recovery BP: 131.0/65.0 mmHg ECG Resting ECG: ATRIAL PACED RHYTHM,RBBB Clinical Exercise duration: 04:01 min Highest Stage Achieved: Exercise capacity: 1.0 METs Stress ECG Conclusion DURING INFUSION PATIENT HAD NO SYMPTOMS. SHORT PAUSE WITH A VENTRICULAR ESCAPE BEAT. NO SIGNIFICANT ST-T CHANGES. NON-DIAGNOSTIC LEXISCAN STRESS. MYOVIEW IMAGES REPORTED SEPARATELY. Test Summary REST . . . . . . . Sitting REST 01:20 . . 71 . 141/ 80 . . Stage 1 . . . . . . . Cardiolite injected Stage 1 01:00 . . 71 . . . . Stage 2 01:00 . . 76 . 114/ 55 . . Stage 3 01:00 . . 70 . 120/ 61 . . Stage 4 01:00 . . 71 . 135/ 66 . . Stage 4 01:01 . . 70 . 135/ 66 . Stop exercise at 04:01 RECOVERY 01:00 . . 70 . . . . RECOVERY 02:00 . . 70 . . . . RECOVERY 03:00 . . 70 . 126/ 65 . . RECOVERY 03:14 . . 70 . 127/ 64 . . Electronically signed by : Jovon Marie MD 03/29/2021 19:33:28
--- NOTE | 2021-03-29 06:05 | NM_ITS ---
APPROVED REPORT Exam: Nuclear Stress Test Indication: CAD, Hx of CA, CABG, HTN, High cholesterol, Pre op Patient Location: Outpatient Stress Tech: Lucia Yessi [place] Tech:Disha Raphael, JUT, RT (R)(N) Ht: 5 ft 10 in Wt: 200 lbs HR: 72 bpm BP: 141/80 mmHg BSA: 2.09 m2 BMI: 28.6 History: CAD, Hx of CA, CABG, HTN, High cholesterol, Pre op Procedure: Patient received a 0.4 mg of intravenous Lexiscan, resting heart rate 72 bpm, resting blood pressure 141/80 mmHg, with Lexiscan maximum heart rate achived was 81 bpm which is Less than 85 % of the maximum predicted heart rate and blood pressure was 114/55 mmHg. With Lexiscan, patient denied any complaint of chest pain. Electrocardiogram Resting electrocardiogram showed atrially paced rhythm, right ventricular conduction delay, nonspecific ST-T changes, with Lexiscan there is less than 1.[address] segment depression noted from the baseline EKG. The EKG portion of the Lexiscan is nondiagnostic. Cardiac Stress and Resting SPECT Images: Cardiac Stress and Resting SPECT images were obtained using technetium 99m Myoview 31.5 mCi stress and 10.69 mCi at rest. Gated SPECT for analysis of segmental wall motion and calculation of the ejection fraction also done. Prone images were not obtained. Cardiac stress and resting SPECT images show reversible ischemia involving the inferior and inferior apical wall. Computer derived ejection fraction 38% with left ventricle is globally hypokinetic, right ventricle is mildly enlarged with normal contractility. Conclusion: 1. The EKG portion of the Lexiscan is nondiagnostic. 2. Scintigraphic abnormal reversible ischemia involving the inferior and inferior apical wall, computer derived ejection fraction is 38% with left ventricular global hypokinesis, right ventricle is mildly enlarged with normal contractility. 3. Abnormal Lexiscan Myoview study. Electronically signed by : Jovon Marie MD 03/29/2021 19:37:48
--- NOTE | 2021-03-29 08:21 | HMH.ITSHM ---
Current Home Medications as stated by this patient Jeff Maldonado or small business representative. []TAMSULOSIN RIVAROXABAN VITAMINS ONDANSETRON OMEPRAZOLE METOPROLOL FOLIC ACID
== END ==
PROVIDERS: PCP Emergency Medicine; Visit Provider Nurse Practitioner Family
DX: E78.5 Hyperlipidemia, unspecified (principal); I11.9 Hypertensive heart disease without heart failure; I25.10 Atherosclerotic heart disease of native coronary artery without angina pectoris; I25.810 Atherosclerosis of coronary artery bypass graft(s) without angina pectoris; I48.91 Unspecified atrial fibrillation; Z01.810 Encounter for preprocedural cardiovascular examination
CPT/HCPCS: 78452; 93017; A9502; J2785

== ENCOUNTER → 2021-04-12 07:23 | Day surgery (SDC) | payer MEDICARE, MEDICAID, SELFPAY ==
[2021-04-12 07:34] VITALS: BMI 30.4
[2021-04-12 07:35] VITALS: PULSE 72
[2021-04-12 08:45] VITALS: BP 132/80; PULSE 71; RESP 18; TEMP 36.8; O2SAT 100
[2021-04-12 08:49] LABS: Coronavirus 19, PCR Not Detected (NotDetected); Influenza A, PCR Not Detected (NotDetected); Influenza B, PCR Not Detected (NotDetected)
[2021-04-12 08:50] LABS: Basophils % 0.5 % (0.1-2.0); Eosinophils # 0.4 K/mm3 (0.0-0.4); Eosinophils % 5.4 % (0.1-12.0); Hematocrit 33.5 % (42.0-52.0); Hemoglobin 10.9 g/dL (14.1-18.0); Lymphocytes # 1.3 K/mm3 (0.7-4.5); Lymphocytes % 17.8 % (10-50); Mean Corpuscular HGB Conc 32.7 g/dL (31.8-35.4); Mean Corpuscular Hemoglobin 29.8 pg (27.0-31.2); Mean Corpuscular Volume 91.2 fl (80-94); Monocytes # 0.3 K/mm3 (0.1-1.0); Monocytes % 4.6 % (1.7-9.3); Neutrophils # 5.2 K/mm3 (1.8-7.8); Neutrophils % 71.7 % (37.0-80.0); Platelet Count 134 K/mm3 (142-424); Red Blood Count 3.68 M/mm3 (4.60-6.20); Red Cell Distribution Width 15.1 % (11.5-17.5); White Blood Count 7.2 K/mm3 (4.8-10.8)
[2021-04-12 08:54] LABS: Chloride 108 mmol/L (98-107); Sodium 146 mmol/L (136-145)
[2021-04-12 08:55] LABS: Potassium 3.2 mmoL/L (3.5-5.1)
[2021-04-12 08:58] LABS: Anion Gap 12.2 mEq/L (5-15); Blood Urea Nitrogen 23 mg/dl (9-20); Calcium 8.7 mg/dl (8.4-10.2); Carbon Dioxide 29 mmol/L (22.0-30.0); Creatinine Clearance Estimated 28 mL/min (50-200); Estimated Glomerular Filt Rate 22 ml/min (>60); GFR (African American) 27 ML/MIN (>60); Glucose 92 mg/dl (74-100)
--- NOTE | 2021-04-12 09:52 | US_ITS ---
PROCEDURE: US URINARY BLADDER CLINICAL INDICATION: BPH Elevated creatinine COMPARISON: No exams were available for comparison FINDINGS: Urinary bladder is somewhat distended with the full volume estimated to be 622 mL. Postvoid images were not able to be performed as the patient was not able to void. No obvious bladder mass evident. Prostate is somewhat prominent measuring approximately 4 cm transverse. IMPRESSION: Distended urinary bladder with a full bladder volume of 622 mL with postvoid images unable to be performed as the patient could not void on command. Mildly enlarged prostate Dictated by: Camilo Bourgeois MD 04/12/2021 12:08 Camilo Bourgeois MD in [place] 04/12/2021 12:08
--- NOTE | 2021-04-12 10:33 | SUR.PREOP ---
US at bedside
--- NOTE | 2021-04-12 11:06 | SUR.PREOP ---
Patient creatinine is elevated at this time. Dr Mancera aware, case is to be cancelled at this time. will
--- NOTE | 2021-04-12 11:06 | SUR.PREOP ---
Patient has elevated creatinine at this time, Dr Mancera made aware. Case to be cancelled and pateint to be reevaluted in clinic at follow up appt. per
== END ==
PROVIDERS: PCP Emergency Medicine; Visit Provider Internal Medicine
DX: R94.39 Abnormal result of other cardiovascular function study (principal); R94.4 Abnormal results of kidney function studies; Z53.09 Procedure and treatment not carried out because of other contraindication
CPT/HCPCS: 36415; 76857; 80048; 85025; U0003

== ENCOUNTER 2021-04-28 13:30 | Emergency (ER) | payer MEDICARE, MEDICAID, SELFPAY ==
[2021-04-28 13:32] VITALS: BMI 31.1
--- NOTE | 2021-04-28 13:33 | CT_ITS ---
PROCEDURE: CT HEAD/BRAIN WO CON CLINICAL INDICATION: UNRESPONSIVE COMPARISON: CT CT HEAD/BRAIN WO CON from 03/04/2021 TECHNIQUE: Axial images obtained. All CT scans at the facility use one or more dose reduction, viz: automated exposure control, ma/kV adjustment per patient size (including targeted exams where dose is matched to indication, i.e. head), or iterative reconstruction technique. FINDINGS: There is an acute hemorrhage within the left basal ganglia measuring 2.6 cm AP, 1.8 cm transverse, and 2.4 cm cephalad caudad. There is a mild amount of surrounding edema. There is diffuse atrophy with periventricular ischemic gliotic change. No midline shift. No intraventricular hemorrhage. The ventricles are dilated but may be due to the generalized atrophy. IMPRESSION: 2.6 cm acute left basal ganglia hemorrhage as described above. Dr. Aguilar notified of these findings by telephone 04 28 21 at 1:35 p.m. Dictated by: Camilo Bourgeois MD 04/28/2021 13:46 Camilo Bourgeois MD in [place] 04/28/2021 13:46
[2021-04-28 13:43] VITALS: BP 119/51; PULSE 72; RESP 16; O2SAT 95
--- NOTE | 2021-04-28 13:45 | PC.NURSE ---
[facility] spoke with Nay, states last dose was given at 5pm yesterday states most recent weight on pt is 205.4 (04/20/21) information relayed to JENSEN MONTES DE OCA
[2021-04-28 13:47] VITALS: BP 119/51; PULSE 94; RESP 20; TEMP 36.8; O2SAT 97; BMI 29.4
--- NOTE | 2021-04-28 13:48 | HMH.EDGENADL ---
ED Disposition Clinical Impression: Intracranial hemorrhage Disposition: Xfer Short-Term Hosp Condition on Discharge: Critical Instructions: DI for Altered Mental Status Referrals: Provider,Referral, MD [Primary Care Provider] - Forms: Transfer Record - ED Time of Disposition: 13:57 - Critical Care Critical Care Time: Yes Attestation: On , the high probability of a clinically significant, sudden or life threatening deterioration of the following system(s) required my full and direct attention, intervention and personal management. The time I documented below is in addition to time spent performing reported procedures but includes the following listed in this critical care notation. Total Critical Care Time: 35 Vital system(s) involved:: Central Nervous System My critical care processes included: Assessment & monitoring of V/S, Initial and Re-exams, Data Review/Interpretation, Coordinating Care, Medication Orders and management, Documentation Medical Decision Making - Medical Records Medical records reviewed: Yes: I reviewed the patient's medical records. - [place] Inquiry Pt receiving controlled substance: No Vital Signs: 04/28/21 13:43 04/28/21 13:47 04/28/21 14:00 Temperature 98.3 F Temperature Source Oral Pulse Rate 72 90 Pulse Rate [Radial] 94 H Respiratory Rate 16 20 16 Blood Pressure 119/51 L 116/77 Blood Pressure [Right Arm] 119/51 L Blood Pressure Mean [Right Arm] 73 Blood Pressure Position Sitting Sitting Blood Pressure Position [Right Arm] Sitting 02 Sat by Pulse Oximetry 95 97 96 Oxygen Delivery Method Room Air Room Air Room Air 04/28/21 14:16 04/28/21 14:48 Temperature 98 F Temperature Source Oral Pulse Rate 93 H 78 Pulse Rate [Radial] Respiratory Rate 16 16 Blood Pressure 133/83 133/76 Blood Pressure [Right Arm] Blood Pressure Mean [Right Arm] Blood Pressure Position Sitting Sitting Blood Pressure Position [Right Arm] 02 Sat by Pulse Oximetry 96 Oxygen Delivery Method Room Air Room Air - Lab Data Lab Results 04/28/21 13:45: WBC 15.8 H, RBC 4.22 L, Hgb 12.8 L, Hct 39.4 L, MCV 93.5, MCH 30.4, MCHC 32.5, RDW 15.1, Plt Count 196, MPV 8.8, Neut % (Auto) 87.1 H, Lymph % (Auto) 6.8 L, [place] % (Auto) 4.9, Eos % (Auto) 0.8, Baso % (Auto) 0.5, Neut # (Auto) 13.8 H, Lymph # (Auto) 1.1, [place] # (Auto) 0.8, Eos # (Auto) 0.1, Baso # (Auto) 0.1, Total Counted 100, Neutrophils % (Manual) 83 H, Lymphocytes % (Manual) 11, Monocytes % (Manual) 6, Platelet Estimate Normal, RBC Morphology Normal 04/28/21 13:45: Sodium 158 H*, Potassium 3.6, Chloride 116 H, Carbon Dioxide 27, Anion Gap 18.6 H, BUN 34 H, Creatinine 3.70 H, Estimated Creat Clear 21, Estimated GFR 16 L*, Est GFR ( Amer) 19 L*, Glucose 135 H, Calcium 9.4, Troponin I 0.05 H 04/28/21 13:45: PT 12.7 H, INR 1.08, APTT 27.5 Result diagrams: 04/28/21 13:45 04/28/21 13:45 Orders (Tests/Meds): ED MEDICATIONS Discontinued Medications Generic Name Dose Route Start Last Admin Trade Name Freq PRN Reason Stop Dose Admin Sodium Chloride 250 mls @ 25 mls/hr 04/28/21 14:00 Sod Chlor 0.9% 250ml Bag IV 04/29/21 13:59 .Q10H [facility] ORDERS Category Date Time Status ABO/RH Type Stat [facility] 04/28/21 14:00 Ordered Transfuse FFP [Fresh Frozen Plasma] Stat [facility] 04/28/21 14:00 Ordered Medical Decision Narrative: In summary this is an 81-year-old male with history of hypertension and intermittent A. fib presenting to the emergency department with altered mental status. Prehospital stroke alert activated based on patient's symptoms. I met him immediately upon arrival to the emergency department. Airway intact. No respiratory distress. Will take directly to CT for noncontrast head CT. Head CT reviewed in real-time. Shows a 2.6 cm bleed in the left putamen. Confirmed by radiology, Dr. Bourgeois. Patient's last dose of Xarelto was yesterday evening at 5 PM. Would like to give Kcentra, PCC's. However, this
--- NOTE | 2021-04-28 13:51 | PC.NURSE ---
contacted [facility] for stroke team, waiting phone operator back
--- NOTE | 2021-04-28 13:52 | PC.NURSE ---
contacting [employer] for helicopter transport standby
--- NOTE | 2021-04-28 13:58 | PC.NURSE ---
Dr Aguilar talking to Dr Tobias
--- NOTE | 2021-04-28 13:59 | PC.NURSE ---
Spoke with daughter about pt condition
[2021-04-28 14:00] VITALS: BP 116/77; PULSE 90; RESP 16; O2SAT 96
--- NOTE | 2021-04-28 14:02 | PC.NURSE ---
spoke with [employer] states eta 10 minutes for helicopter
[2021-04-28 14:03] LABS: Chloride 116 mmol/L (98-107); Potassium 3.6 mmoL/L (3.5-5.1)
--- NOTE | 2021-04-28 14:03 | PC.NURSE ---
Spoke with daughter and explained situation and POC. PT agreeable
[2021-04-28 14:05] LABS: Basophils # 0.1 K/mm3 (0-0.2); Basophils % 0.5 % (0.1-2.0); Eosinophils # 0.1 K/mm3 (0.0-0.4); Eosinophils % 0.8 % (0.1-12.0); Hematocrit 39.4 % (42.0-52.0); Hemoglobin 12.8 g/dL (14.1-18.0); Lymphocytes # 1.1 K/mm3 (0.7-4.5); Lymphocytes % 6.8 % (10-50); Mean Corpuscular HGB Conc 32.5 g/dL (31.8-35.4); Mean Corpuscular Hemoglobin 30.4 pg (27.0-31.2); Mean Corpuscular Volume 93.5 fl (80-94); Mean Platelet Volume 8.8 fl (7.4-10.4); Monocytes # 0.8 K/mm3 (0.1-1.0); Monocytes % 4.9 % (1.7-9.3); Neutrophils # 13.8 K/mm3 (1.8-7.8); Neutrophils % 87.1 % (37.0-80.0); Platelet Count 196 K/mm3 (142-424); Red Blood Count 4.22 M/mm3 (4.60-6.20); Red Cell Distribution Width 15.1 % (11.5-17.5); White Blood Count 15.8 K/mm3 (4.8-10.8)
--- NOTE | 2021-04-28 14:05 | PC.NURSE ---
when pt arrived stroke alert called per EMS. SHILPA Luz accompanied pt to CT. Unable to assess NIHSS due to pt mental status.
[2021-04-28 14:06] LABS: Blood Urea Nitrogen 34 mg/dl (9-20); Creatinine Clearance Estimated 21 mL/min (50-200); Estimated Glomerular Filt Rate 16 ml/min (>60); GFR (African American) 19 ML/MIN (>60)
[2021-04-28 14:07] LABS: MANUAL DIFFERENTIAL MANUAL DIFFERENTIAL (MANUAL DIFF)
[2021-04-28 14:08] LABS: Activated Partial Thrombo Time 27.5 seconds (22.8-30.6); Anion Gap 18.6 mEq/L (5-15); Calcium 9.4 mg/dl (8.4-10.2); Carbon Dioxide 27 mmol/L (22.0-30.0); Glucose 135 mg/dl (74-100); Prothrombin Time 12.7 seconds (10.1-12.5)
[2021-04-28 14:10] LABS: Sodium 158 mmol/L (136-145)
--- NOTE | 2021-04-28 14:10 | PC.NURSE ---
aware of sodium 158
[2021-04-28 14:11] LABS: INR 1.08 (0.9-1.1)
--- NOTE | 2021-04-28 14:11 | ECG_ITS ---
APPROVED REPORT Exam: Resting ECG HR:93 bpm ECG Measurements Heart Rate 93 AXES MA 204 P 80 QRSd 118 QRS -32 QT 398 T 11 QTc 494 Conclusion Normal sinus rhythm Left axis deviation Pulmonary disease pattern Incomplete right bundle branch block T wave abnormality, consider anterior ischemia Prolonged QT Abnormal ECG Electronically signed by : Mejia Nicholson MD 05/01/2021 16:14:16
--- NOTE | 2021-04-28 14:15 | PC.NURSE ---
REPORT CALLED TO [facility]
[2021-04-28 14:16] VITALS: BP 133/83; PULSE 93; RESP 16; O2SAT 96
[2021-04-28 14:18] LABS: Lymphocytes % 11 % (10-50); Monocytes % 6 % (2-9); Neutrophils % 83 % (42-76); Platelet Estimate Normal; RBC Morphology Normal; Total Cells Counted 100
[2021-04-28 14:19] LABS: Troponin I 0.05 ng/ml (0.00-0.034)
[2021-04-28 14:48] VITALS: BP 133/76; PULSE 78; RESP 16; TEMP 36.6; O2SAT 97
--- NOTE | 2021-04-28 19:30 | ECG_ITS ---
APPROVED REPORT Exam: Resting ECG HR:134 bpm ECG Measurements Heart Rate 134 AXES QRSd 66 QRS 39 QT 386 T -27 QTc 576 Conclusion Atrial fibrillation with rapid ventricular response with premature ventricular or aberrantly conducted complexes Low voltage QRS Cannot rule out Inferior infarct, age undetermined Possible Anterolateral infarct, age undetermined Abnormal ECG Electronically signed by : Mejia Nicholson MD 05/01/2021 16:14:03
== END 2021-04-28 14:51 | disposition short-term general hospital (02) ==
PROVIDERS: Emergency Provider Emergency Medicine
DX: I62.9 Nontraumatic intracranial hemorrhage, unspecified (principal); F41.8 Other specified anxiety disorders; I10 Essential (primary) hypertension; I48.0 Paroxysmal atrial fibrillation; J44.9 Chronic obstructive pulmonary disease, unspecified; E78.5 Hyperlipidemia, unspecified; Z95.1 Presence of aortocoronary bypass graft; Z95.0 Presence of cardiac pacemaker; Z79.899 Other long term (current) drug therapy
CPT/HCPCS: 70450; 80048; 84484; 85007; 85025; 85610; 85730; 93005; 99283